=== PATIENT | male | born 1950 | race Caucasian/White ===

== ENCOUNTER 2017-10-03 16:08 | Inpatient (IN) | payer MEDICARE ==
[2017-10-03] MEDS ORDERED: Nitroglycerin TAB 0.4 MG* 0.4 MG TAB ONE (16:28)
[2017-10-03] MEDS ORDERED: Morphine VIAL* 4 MG/ML VIAL (1 ml vial) IV ONE ×2 (16:28→16:36)
[2017-10-03] MEDS ORDERED: Ondansetron INJ* 2 MG/ML VIAL ONE (16:29)
[2017-10-03] MEDS: Nitroglycerin TAB 0.4 MG* 0.4 MG TAB SL SCH ×2 (16:32→20:45)
[2017-10-03] MEDS ORDERED: Ondansetron INJ* 2 MG/ML VIAL IV ONE (16:36)
[2017-10-03] MEDS: NS 0.9% 1000 ML*IV.FLUID IV ONE ×2 (16:40→18:36)
[2017-10-03 16:47] LABS: ABS Basophils 0 10^3/ul (0-0.2); ABS Eosinophils 0.2 10^3/ul (0-0.6); ABS Lymphocytes 1.1 10^3/ul (1.0-4.8); ABS Monocytes 0.3 10^3/ul (0-0.8); ABS Neutrophils 5.4 10^3/ul (1.5-7.7); ABS Nucleated RBC 0 10^3/ul; Eosinophil % 2.8 % (0-6); Hematocrit 42 % (42-52); Hemoglobin 14.6 g/dl (14.0-18.0); Lymphocyte % 15.3 % (25-47); Mean Corpuscular HGB Conc 35 g/dl (31-36); Mean Corpuscular Hemoglobin 33 pg (27-31); Mean Corpuscular Volume 93 fL (80-94); Mean Platelet Volume 7.3 um3 (7.4-10.4); Nucleated Red Blood Cells % 0.1; Platelet Count 184 10^3/ul (150-450); Red Blood Count 4.48 10^6/ul (4.0-5.4); Red Cell Distribution Width 13 % (10.5-15); White Blood Count 7.1 10^3/ul (3.5-10.8)
[2017-10-03 16:55] LABS: INR 0.87 (0.77-1.02)
[2017-10-03 17:05] LABS: EGFR Non-African American 72.4 (>60)
[2017-10-03] MEDS ORDERED: Iohexol 350* (CONTRAST) 500 ML MDV IV ONE (17:46)
--- NOTE | 2017-10-03 17:46 | RAD ---
Indication: Chest pain. Single frontal view of the chest performed at 1725 hours was reviewed. Comparison is made with previous exam dated April 11, 2015. No mediastinal shift is noted. Heart is of normal size and configuration. Lung wisdom appear clear. IMPRESSION: NO ACTIVE CARDIOPULMONARY DISEASE IS NOTED.
[2017-10-03 18:30] LABS: Urine Appearance Clear; Urine Blood 2+ (Negative); Urine Color Colorless; Urine Ketones Negative (Negative); Urine Protein Negative (Negative); Urine Specific Gravity 1.003 (1.010-1.030); Urine Urobilinogen Negative (Negative)
--- NOTE | 2017-10-03 18:56 | RAD ---
Indication: Back pain. Contrast: Administered 100.2 ml of OMNIPAQUE 350 mg/ml CTA of the chest, abdomen and pelvis was performed after IV contrast administration. Coronal and sagittal 3-D reconstructed images were obtained. The thoracic aorta demonstrates atherosclerosis but no evidence of aneurysmal dilatation or aortic dissection is noted. The origins of the great vessels are grossly unremarkable. There are small 3 to 5 mm AP window lymph nodes and pretracheal lymph nodes noted. No hilar adenopathy is noted. No filling defects are noted in the pulmonary arteries to suggest pulmonary embolus. The lung wisdom demonstrate no definite pleural fluid or nodules. The axilla demonstrates no evidence of abnormal adenopathy. The abdominal aorta demonstrates no residual dilatation. Atherosclerosis of the left and right renal arteries are noted. Superior mesenteric artery and celiac axis are unremarkable. The common iliac arteries are tortuous pelvis no focal dissection is noted. No pleural fluid is identified. CT of the abdomen and pelvis demonstrates liver to be normal in size. No focal lesions or intrahepatic ductal dilatation is noted. The gallbladder demonstrates no calcified gallstones. No pericholecystic fluid or wall thickening is noted. The spleen is normal in size. No adrenal lesions are noted. The kidneys demonstrate no hydronephrosis. CT of the pelvis demonstrates distended urinary bladder. Prostate is enlarged. No hernias are noted. IMPRESSION: No evidence of thoracic aortic dissection or aneurysmal dilatation is noted. No dilated loops of bowel are noted. The remainder of the abdominal aorta demonstrates no evidence of aneurysmal dilatation. The urinary bladder is distended. The prostate is enlarged. No hernias are noted. Small mediastinal lymph nodes are noted.
[2017-10-03] MEDS ORDERED: Acetaminophen TAB* 325 MG PO PRN (19:18)
[2017-10-03] MEDS: Omeprazole CAP* 20 MG PO SCH (20:45)
[2017-10-03] MEDS: Heparin VIAL(*) 5000 UNITS/ML VIAL (FIVE THOUSAND) SUBCUT SCH (20:47)
--- NOTE | 2017-10-03 21:46 | HP ---
CC: Dr. Frank; Dr. Lyly Bullard* HISTORY AND PHYSICAL: DATE OF ADMISSION: 10/03/17 PRIMARY CARE PROVIDER: Dr. Frank. PROJECT MANAGEMENT IT SPECIALIST: Dr. Lyly Bullard. ATTENDING PHYSICIAN: Dr. Sarina Cruz* (dictated by Jenny Atkins NP). CHIEF COMPLAINT: Chest pain, indigestion, intermittent shortness of breath, left lower extremity pain and low back pain. HISTORY OF PRESENT ILLNESS: Mr. Yates is a 67-year-old male with past medical history significant for coronary artery disease, status post cardiac catheterization and 2 stents placed in 2012, hypertension, BPH, allergic rhinitis, hyperlipidemia, GERD and gout, who presented to the emergency room with complaints of intermittent chest pain that developed on Wednesday after he "forcefully removed a tire." The patient states that since Wednesday which was 2 days ago that he has intermittently been having an aching discomfort in his mid sternal chest region. He also reports the feeling of indigestion with discomfort radiating up into his neck and down into his abdomen. Additionally, he has had intermittent shortness of breath. He also reports having cramping down his left leg that is radiating up into low back pain since Wednesday. The patient states that in 2012 when he had his prior event, at that time he felt fine with the exception of feeling fatigued while carrying a laundry basket going upstairs. He states this does not feel similar to that time. He took 325 mg of aspirin at home when he noticed that the pain was increased while walking around at work, he decided to present to the emergency room for further evaluation. While in the emergency room, the patient had labs remarkable for a CK of 1716 and troponin of 0.07. He had an EKG showing a normal sinus rhythm at a rate of 60 similar to previous EKG with no acute signs of ischemia. The patient had a chest x- ray showing no acute findings. Additionally, he had a CT of his chest showing no signs of dissection. Due to the patient's history of elevated troponin, the hospitalists were asked to evaluate the patient for admission. PAST MEDICAL HISTORY: 1. Coronary artery disease. 2. Hypertension. 3. BPH. 4. Allergic rhinitis. 5. Hyperlipidemia. 6. GERD. 7. Gout. 8. Possible history of anemia secondary to GI bleed, per medical record, but the patient is currently denying this history. PAST SURGICAL HISTORY: 1. Status post left inguinal hernia repair. 2. Status post cardiac catheterization with 2 stents placed. 3. Status post cystoscopy. 4. Status post nasal septoplasty. 5. Status post bilateral cataract extractions. MEDICATIONS: Include: 1. Fluconazole topical twice daily. 2. Flonase 50 mcg 2 sprays to both nares daily. 3. Metoprolol 50 mg oral daily. 4. Allopurinol 300 mg oral daily. 5. Amlodipine 2.5 mg oral daily. 6. Flomax 0.4 mg oral daily. ALLERGIES: ENVIRONMENTAL. FAMILY HISTORY: The patient denies any family history of coronary artery disease, diabetes mellitus. The patient's mother had a history of uterine cancer. SOCIAL HISTORY: The patient denies tobacco or alcohol use. He reports daily marijuana use. His sons Feroz and Zak will be his surrogate decision makers in the event he is unable to make decisions for herself. REVIEW OF SYSTEMS: I performed an 11-point review of systems. All the pertinent positives and negatives are mentioned in the history of present illness. Remaining review of systems are negative. PHYSICAL EXAMINATION GENERAL APPEARANCE: The patient is alert, pleasant and appears to be in no acute distress. VITAL SIGNS: Temperature 97.7, heart rate 59, respiratory rate 17, O2 sat 96% on room air, blood pressure 126/74. HEENT: Normocephalic, atraumatic. Pupils are equal and reactive to light. Extraocular movements are intact. NECK: Supple. There is no lymphadenopathy noted. RESPIRATORY: There is no accessory muscle use. The lungs are clear to auscultation bilaterally. CARDIOVASCULAR: Regular rate and rhythm. S1, S2 present. There are no murmurs , rubs, or gallops. I am unable to reproduce the pain with palpation. ABDOMEN: Soft, nontender, and nondistended. Bowel sounds present x4. EXTREMITIES: There is no lower extremity edema. DP and PT pulses are 2+ and symmetric. MUSCULOSKELETAL: There is no clubbing or cyanosis noted. The patient exhibits good strength in all extremities. NEUROLOGICAL: The patient is alert and oriented x4. Cranial nerves II through XII are grossly intact. PSYCHOLOGICAL: The patient is calm and cooperative. SKIN: There are no rashes or abnormalities seen. DIAGNOSTIC STUDIES/LAB DATA: Sodium 135, potassium 3.9, chloride 100, CO2 24, BUN 17, creatinine 1.02, platelet 141. White blood cell count 7.1, hemoglobin 14.6, hematocrit 42, and platelet count 184. INR 0.89. D-dimer less than 200, CK 1716, troponin 0.07. EKG shows a normal sinus rhythm with a rate of 60. There are no acute signs of ischemia. This EKG is similar to previous EKG from 08/27/15. Chest x-ray from today. Radiologist's impression: No active cardiopulmonary disease. Chest, abdomen and pelvis CTA from today. Radiologist's impression: No evidence for thoracic aortic dissection or aneurysmal dilation is noted. No dilated loops of bowel were noted. The remainder of the abdomen aortic demonstrates no evidence of aneurysmal dilation. The urinary bladder is distended. The prostate is enlarged. No hernias are noted. Small mediastinal lymph nodes are noted. IMPRESSION: Mr. Yates is a 67-year-old male with past medical history significant for coronary artery disease status post cardiac stenting, hypertension, benign prostatic hypertrophy, hyperlipidemia, gastroesophageal reflux disease and gout, who presented to the emergency room with 2 days of intermittent chest pain with associated intermittent shortness of breath. He will be admitted in observation for chest pain rule out acute coronary syndrome. ASSESSMENT AND PLAN: 1. Chest pain. The patient will be admitted to rule out acute coronary syndrome. He has a SVETLANA score of 2. His initial troponin is 0.07. He is pending to follow up troponins. He currently has no acute signs of ischemia on his EKG. I will repeat an EKG in the morning. We are going to tentatively plan to do an exercise nuclear med stress test in the morning if he rules out for acute coronary syndrome overnight. I am going to continue him on a baby aspirin daily and continue his statin, but recheck fasting lipids in the morning and adjust his statin accordingly. 2. Mild rhabdomyolysis. We will give the patient IV fluids, recheck his CK in the morning. 3. History of coronary artery disease. Continue the patient's metoprolol. He is not currently on aspirin. He is not currently on a statin. We will check fasting lipids. 4. Hypertension. The patient is mostly normotensive in the emergency room. We will continue him on his amlodipine and metoprolol. 5. History of hyperlipidemia. We will check fasting lipids in the morning. He is not currently on a statin. 6. History of gout. He will be continued on his home allopurinol. 7. Gastroesophageal reflux disease. The patient is not currently taking medications at home. We will trial him on omeprazole while he is in the hospital. 8. Benign prostatic hypertrophy. The patient will be continued on his tamsulosin. 9. Fluids, electrolytes, and nutrition. The patient will be on a heart healthy diet, n.p.o. except for meds after midnight for a stress testing in the morning. 9. Code status. Full code. 10. DVT prophylaxis. The patient is at moderate risk and will have subcu heparin. 11. Disposition. Observation. TIME SPENT: Time for this admission was approximately 60 minutes, greater than half of that was spent with the patient discussing medications, past medical history, the events leading up to his arrival today, performing an examination. The case has been reviewed with the attending, Dr. Cruz, who agrees with the plan of care. JENNY ATKINS, LINDSAY [id number]/[facility] #: [id number] YOSSI
[2017-10-03] MEDS ORDERED: Al Hydrox/Mg Hydrox/Simet LIQ* 30 ML UDC PO PRN (22:04)
--- NOTE | 2017-10-03 22:33 | ED ---
Sandoval Eldridge Stephanie, scribed for Shahla Bruce MD on 10/03/17 at 1628 . HPI Chest Pain - HPI Summary HPI Summary: The pt is a 67 y/o M presenting to the ED with c/o chest pain that began on 10/02 at night. Symptoms include SOB, nausea, L LE pain and lower back pain. He denies V/D, abd pain and diaphoresis. The CP is intermittent and worse with exertion. Pt took 325 mg aspirin at home. The pain is described as an aching pain and radiates into his L shoulder. The pt states his CP feels like it moves around. It feels like indigestion. His pain is rated as a 6 in severity. S/p nitro, the pt states his pain is an uncomfortable feeling. Pt drove himself to the ED. Pt has hx CAD with [address] 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 - History of Current Complaint Chief Complaint: EDChestPainROMI Time Seen by Provider: 10/03/17 16:14 Hx Obtained From: Patient Onset/Duration: Started Hours Ago, Still Present Timing: Intermittent Initial Severity: Moderate Current Severity: Moderate Pain Intensity: 6 Pain Scale Used: 0-10 Numeric Chest Pain Location: Left Anterior Chest Pain Radiates: Yes Chest Pain Radiates To:: Shoulder - L Character: Dull/Aching, Other: - SOB Aggravating Factor(s): Exertion Alleviating Factor(s): Nothing Associated Signs and Symptoms: Positive: Chest Pain, Shortness of Breath, Nausea. Negative: Diaphoresis, Vomiting - Allergy/Home Medications Allergies/Adverse Reactions: Allergies Allergy/AdvReac Type Severity Reaction Status Date / Time No Known Drug Allergies Allergy See Comment Verified 10/04/17 12:21 ENVIRONMENTAL/SEASONAL Allergy ITCHY Uncoded 10/03/17 16:11 ALLERGIES WATERY EYES, CONGESTION Home Medications: Home Medications Allopurinol TAB* [Zyloprim 300 MG TAB*] 300 mg PO DAILY 10/03/17 [History Confirmed 10/03/17] Fluconazole Cream 1 applic TOPICAL BID 10/03/17 [History Confirmed 10/03/17] Fluticasone NASAL SPRAY 50MCG* [Flonase NASAL SPRAY 50MCG*] 2 spray BOTH NARES DAILY 10/03/17 [History Confirmed 10/03/17] Metoprolol Tartrate TAB* [Lopressor TAB*] 50 mg PO DAILY 10/03/17 [History Confirmed 10/03/17] Tamsulosin CAP* [Flomax CAP*] 0.4 mg PO DAILY 10/03/17 [History Confirmed ] amLODIPine TAB* [Norvasc 5 mg TAB*] 2.5 mg PO DAILY 10/03/17 [History Confirmed 10/03/17] Aspirin EC TAB* [Ecotrin EC Low Dose 81 MG*] 81 mg PO DAILY 10/04/17 [History Confirmed 10/04/17] PMH/Surg Hx/FS Hx/Imm Hx Endocrine/Hematology History: Reports: Hx Anemia Cardiovascular History: Reports: Hx Angioplasty, Hx Coronary Artery Disease - CARDIAC CATHERIZATION WITH 2 STENT INSERTION 2012, Hx Hypertension, 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 Respiratory History: Reports: Other Respiratory Problems/Disorders - DEVIATED SEPTUM, CONGESTED GI History: Denies: Other GI Disorders Comment Only: Hx Gastroesophageal Reflux Disease - DENIES BUT TAKING DAILY OMEPRAZOLE History: Reports: Hx Benign Prostatic Hyperplasia, Hx Kidney Stones Musculoskeletal History: Reports: Hx Arthritis - OSMANI HANDS Denies: Other Musculoskeletal History Sensory History: Reports: Hx Cataracts - BILATERAL, Hx Contacts or Glasses - GLASSES Denies: Hx Hearing Aid Opthamlomology History: Reports: Hx Cataracts - BILATERAL, Hx Contacts or Glasses - GLASSES Neurological History: Reports: Hx Headaches - OCCASIONAL, Other Neuro Impairments/Disorders - OCCASIONAL DIZZINESS WHEN BENDING - Surgical History Surgery Procedure, Year, and Place: 05/2013 CARDIAC CATHERIZATION WITH 2 [place] [facility] [place] RIGHT URETEROSCOPY, LASER LITHOTRIPSY, RIGHT URETERAL [place] [facility] [place]/06/2014 COLONOSCOPY, [facility] Anesthesia Reactions: No Infectious Disease History: No Infectious Disease History: Denies: Traveled Outside the [place] in Last 30 Days - Family History Known Family History: Negative: Cardiac Disease, Renal Disease - Social History Occupation: Employed Full-time Lives: Alone Alcohol Use: None Hx Substance Use: Yes Substance Use Type: Reports: Marijuana Substance Use Comment - Amount & Last Used: EVERYDAY Hx Tobacco Use: No Smoking Status (MU): Never Smoked Tobacco Have You Smoked in the Last Year: No Review of Systems Negative: Fever Positive: Chest Pain Positive: Shortness Of Breath Positive: Nausea. Negative: Abdominal Pain, Vomiting, Diarrhea Positive: Other - L LE pain, lower back pain Neurological: Negative Psychological: Normal All Other Systems Reviewed And Are Negative: Yes Physical Exam - Summary Physical Exam Summary: Appearance: Ill-appearing, moderate/severe pain distress, Well-nourished Skin: Warm, color reflects adequate perfusion Head: Normal Head/Face inspection Eyes: Conjunctiva clear ENT: Normal inspection Neck: Supple, no nodes, no JVD. Respiratory: Lungs clear, breath sounds diminished, no respiratory distress Cardio: RRR, No murmur, pulses normal, brisk capillary refill Abdomen: soft, nontender, no masses Bowel sounds: present Musculoskeletal: Strength Intact/ ROM intact. Tenderness to L lateral LE, no spinal tenderness, tender at sciatic notch. No edema. Psychological: Normal Neuro: Alert, muscle tone normal, no focal deficit Triage Information Reviewed: Yes Vital Signs On Initial Exam: Initial Vitals Temp Pulse Resp BP Pulse Ox 97.7 F 63 16 136/74 94 10/03/17 16:11 10/03/17 16:11 10/03/17 16:11 10/03/17 16:11 10/03/17 16:11 Vital Signs Reviewed: Yes Diagnostics - Vital Signs Vital Signs Temp Pulse Resp BP Pulse Ox 10/03/17 16:11 97.7 F 63 16 136/74 94 - Laboratory Result Diagrams: 10/03/17 16:35 10/04/17 06:32 Lab Statement: Any lab studies that have been ordered have been reviewed, and results considered in the medical decision making process. - Radiology CXR Xray Interpretation: No Acute Changes Radiology Interpretation Completed By: Radiologist - NO ACTIVE CARDIOPULMONARY DISEASE NOTED. ED physician has reviewed this report. - EKG 16:20 Cardiac Rate: NL EKG Rhythm: Sinus Rhythm - [address] Segment: Non-Specific Ectopy: None - nml AVIVCT, nml QTc, and L axis -18 Re-Evaluation - Re-Evaluation First Eval Re-Evaluation Time: 16:55 Change: Worse - The pt states he has worsening R CP, He is uncomfortable on stretcher, 10/10 in severity. Pain in R chest and he points to his R chest and abd and states his pain runs through his back. Second Eval Re-Evaluation Time: 17:33 Change: Improved - The pt's pain is better but he still has pain in his chest and abd. Chest Pain Course/Dx - Course Course Of Treatment: Due to the pts hx of vascular disease, stents, CP and abd pain, ED physician will do CTA of aorta to make sure there is no aortic dissection. Based on elevated total creatine kinase, the pt has rhabdomyolysis. At 17:33, ED physician is aware of the pt's troponin. At 17:44, Dr. Cisneros accepted the pt for admission. - Chest Pain Differential Diagnosis/HQI/PQRI: Acute [place], ACS, Angina, Aortic Aneurysm, Pulmonary Embolism, Other: - aortic dissection - Diagnoses Provider Diagnoses: Chest pain, Non-STEMI (non-ST elevated myocardial infarction), Rhabdomyolysis, History of coronary artery disease - Provider Notifications Discussed Care Of Patient With: Talib Cisneros Time Discussed With Above Provider: 17:44 Instructed by Provider To: Admit As Inpatient - Critical Care Time Critical Care Time: 30-74 min - 45 mins Discharge - Sign-Out/Discharge Documenting (check all that apply): Discharge/Admit/Transfer - admit - Discharge Plan Condition: Stable Disposition: ADMITTED TO [facility] - Billing Disposition and Condition Condition: STABLE [place] [place] The documentation as recorded by the Sandoval bland Stephanie accurately reflects the service I personally performed and the decisions made by , Shahla Bruce MD.
[2017-10-03] MEDS: NS 0.9% 1000 ML* 1,000 ML IV SCH (22:59)
[2017-10-04] MEDS: Heparin VIAL(*) 5000 UNITS/ML VIAL (FIVE THOUSAND) SUBCUT SCH ×3 (06:14→21:14)
[2017-10-04] MEDS: Omeprazole CAP* 20 MG PO SCH (06:14)
[2017-10-04 07:03] LABS: EGFR Non-African American 83.7 (>60)
--- NOTE | 2017-10-04 08:32 | PN ---
Subjective Date of Service: 10/04/17 Interval History: Patient seen and examined at bedside. Denies fever, chills, shortness of breath , chest discomfort, N/V/D. Pt states that the feeling of indigestion resolved after receiving a "GI cocktail" overnight. He reports that he intermittently had sternal chest pressure overnight, that has since resolved. Discussed with Dr. Amor elevated troponin and chest pain overnight, He is ok with proceeding with stress testing today. Tele: Sinus rhythm, rate 60's. Family History: Unchanged from Admission Social History: Unchanged from Admission Past Medical History: Unchanged from Admission Objective Active Medications: Acetaminophen (Tylenol Tab*) 650 mg PO Q4H PRN Reason: FEVER/PAIN Al Hydrox/Mg Hydrox/Simethicone (Maalox Plus*) 30 ml PO ONCE PRN Reason: INDIGESTION Allopurinol (Zyloprim Tab*) 300 mg PO DAILY [facility] Amlodipine Besylate (Norvasc Tab*) 2.5 mg PO DAILY [facility] Aspirin (Aspirin Ec Tab*) 81 mg PO DAILY [facility] Fluticasone Propionate (Flonase Nasal Harman 50mcg*) 2 spray BOTH NARES DAILY [facility] Heparin Sodium (Porcine) (Heparin Vial(*)) 5,000 units SUBCUT Q8HR [facility] Sodium Chloride (Ns 0.9% 1000 Ml*) 1,000 mls @ 100 mls/hr IV PER RATE [facility] Metoprolol Tartrate (Lopressor Tab*) 50 mg PO DAILY [facility] Nitroglycerin (Nitroglycerin Tab 0.4 Mg*) 0.4 mg SL .EVERY 5 MIN PRN [facility] Omeprazole (Prilosec Cap*) 20 mg PO 0600 [facility] Tamsulosin HCl (Flomax Cap*) 0.4 mg PO DAILY [facility] Vital Signs - 8 hr 10/04/17 10/04/17 03:43 07:29 Temperature 97.8 F 98.1 F Pulse Rate 56 56 Respiratory 20 18 Rate Blood Pressure 117/68 124/76 (mmHg) O2 Sat by Pulse 93 94 Oximetry Oxygen Devices in Use Now: None Appearance: NAD, laying in bed Ears/Nose/Mouth/Throat: Mucous Membranes Moist Respiratory: Symmetrical Chest Expansion and Respiratory Effort, Clear to Auscultation Cardiovascular: NL Sounds; No Murmurs; No JVD, RRR Abdominal: NL Sounds; No Tenderness; No Distention Extremities: No Edema Skin: No Rash or Ulcers Neurological: Alert and Oriented x 3, NL Muscle Strength and Tone Lines/Tubes/Other Access: Clean, Dry and Intact Peripheral IV - site benign Nutrition: Taking PO's Result Diagrams: 10/03/17 16:35 10/04/17 06:32 Assess/Plan/Problems-Billing Assessment: Mr. Yates is a 67 yo male with PMH significant for CAD s/p cardiac stent x2, HTN , BPH, HLD, GERD and GOUT who presented to the emergency room with complaints of intermittent chest pain for - Patient Problems (1) Chest pain Code(s): R07.9 - CHEST PAIN, UNSPECIFIED SNOMED Code(s): 30927379 Comment: - Reports intermittent chest discomfort overnight, this has now resolved - Troponins 0.07, 0.10, 0.13, 0.21 - Continue to trend troponin until peak - Cardiology consult, pending - Nuclear stress test pending (2) Rhabdomyolysis Code(s): M62.82 - RHABDOMYOLYSIS SNOMED Code(s): 317673807 Comment: - Mild, Pt has chronically elevated CK - CK 1716 down to 1701 this AM - Continue IVFs (3) GERD (gastroesophageal reflux disease) Code(s): K21.9 - GASTRO-ESOPHAGEAL REFLUX DISEASE WITHOUT ESOPHAGITIS SNOMED Code(s): 696790969 Comment: - Continue omeprazole (4) History of coronary artery disease Code(s): Z86.79 - PERSONAL HISTORY OF OTHER DISEASES OF THE CIRCULATORY SYSTEM SNOMED Code(s): 574213337 Comment: - S/P 2 cardiac stents ~ 2012 - Continue ASA and metoprolol (5) HTN (hypertension) Code(s): I10 - ESSENTIAL (PRIMARY) HYPERTENSION SNOMED Code(s): 79522839 Comment: - SBP 100-150's - Continue amlodipine and metoprolol (6) HLD (hyperlipidemia) Code(s): E78.5 - HYPERLIPIDEMIA, UNSPECIFIED SNOMED Code(s): 97341268 Comment: - No longer on a statin due to elevated CKs - Will defer to cardiology (7) Gout Code(s): M10.9 - GOUT, UNSPECIFIED SNOMED Code(s): 99117539 Comment: - Continue allopurinol (8) BPH (benign prostatic hyperplasia) Code(s): N40.0 - BENIGN PROSTATIC HYPERPLASIA WITHOUT LOWER URINRY TRACT SYMP SNOMED Code(s): 228498277 Comment: - Continue tamsulosin (9) DVT prophylaxis Code(s): [id number] - SNOMED Code(s): 650682828 Comment: - SQ heparin (10) Full code status Code(s): Z78.9 - OTHER SPECIFIED HEALTH STATUS SNOMED Code(s): 520904065 Status and Disposition: OBV. Discharge to home when medically stable. Attending: Susi Lay
[2017-10-04] MEDS: Fluticasone NASAL SPRAY 50MCG* 16 gm SPRAY BTL BOTH NARES SCH (08:34)
[2017-10-04] MEDS: Allopurinol TAB* 300 MG PO SCH (08:35)
[2017-10-04] MEDS: Tamsulosin CAP* 0.4 MG PO SCH (08:35)
[2017-10-04] MEDS: Aspirin EC TAB* 81 MG TAB.EC PO SCH (08:35)
[2017-10-04] MEDS: amLODIPine TAB* 5 MG PO SCH (08:35)
[2017-10-04] MEDS ORDERED: Metoprolol Tartrate TAB* 50 mg PO SCH (09:00)
[2017-10-04] MEDS: NS 0.9% 1000 ML* 1,000 ML IV SCH (09:10)
[2017-10-04] MEDS ORDERED: diPHENhydraMINE PO* 25 MG PO ONE (12:07)
[2017-10-04] MEDS ORDERED: Diazepam TAB(*) 5 MG PO ONE (12:07)
[2017-10-04] MEDS ORDERED: Diazepam TAB(*) 5 MG ONE (12:18)
--- NOTE | 2017-10-04 13:06 | RAD ---
INDICATION: Chest pain. COMPARISON: There are no prior studies available for comparison. Technique: A single day myocardial perfusion stress study was performed. Initially the resting study was performed. The patient was given an intravenous injection of 10.1 mCi of technetium 99m tetrofosmin and and the heart was imaged in multiple projections. The stress portion of the exam was canceled. Images were reconstructed in the axial, sagittal and coronal planes and in a 3-D format. FINDINGS: There is a moderate size defect present in the inferolateral which resolves on the attenuation corrected images and therefore most consistent with an attenuation artifact. IMPRESSION: LIMITED REST STUDY ONLY. NO EVIDENCE FOR INFARCT.
--- NOTE | 2017-10-04 13:25 | CONS ---
CC: Dr. Bullard CARDIOLOGY CONSULTATION: DATE OF CONSULT: 10/04/17 INDICATION FOR CONSULTATION: Coronary artery disease, unstable angina. HISTORY OF PRESENT ILLNESS: The patient is a 67-year-old male with a history of coronary artery dise ase, history of 2 stents to his right coronary artery in 2012, who had been experiencing crescendo an boom. The patient states that he was working yesterday and had epigastric discomfort radiating up in to his chest. 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 He decided to come to the emergency room. On arrival to the emerg ency room, his troponins were minimally elevated at 0.07. His peak troponin was 0.21. His initial E KG demonstrated normal sinus rhythm with normal axis and intervals. No ischemic EKG changes. The patient underwent an exercise stress test with me today. The patient had no pain when he started the exercise, 3 minutes into exercise, he started having severe epigastric discomfort radiating up i nto his chest, by 4.5 minutes it was a crushing chest pain and he had to stop. The patient did have [address] segment depression at peak exercise that resolved 3 minutes into recovery period. Because of his history of coronary artery disease and his markedly abnormal stress test, it is recomm ended that the patient undergo cardiac catheterization. PAST MEDICAL HISTORY: Significant for: 1. Coronary artery disease. 2. Hypertension. 3. Allergic rhinitis. 4. Gastroesophageal reflux disease. 5. Gout. PAST SURGICAL HISTORY: 1. Inguinal hernia repair. 2. Cystoscopy. 3. Nasal septoplasty. 4. Cataract surgery. OUTPATIENT MEDICATIONS: 1. Flonase nasal spray. 2. Metoprolol 50 mg daily. 3. Allopurinol 300 mg a day. 4. Amlodipine 2.5 mg a day. 5. Flomax 0.4 mg a day. The patient apparently was not taking an aspirin or statin therapy. ALLERGIES: No known drug allergies. PHYSICAL EXAM: Height is 5 feet 6 inches, weight is 159 pounds. Temperature 98.1, heart rate is 60, blood pressure 124/78, respiratory rate is 18, oxygen saturation 94% on room air. Sclerae anicteric . Oropharynx is pink without erythema. Carotids are 2+ without bruits. JVD is normal. Thyroid is n ormal. Cardiac Exam: S1 and S2 without any murmurs, rubs, or gallops. Lungs: Clear to auscultation bilaterally. There is no dullness to percussion. Abdomen: Soft, nontender, and nondistended with normoactive bowel sounds. Extremities: Show no edema. He has 2+ pulses throughout. Neurologic: T he patient is awake, alert, and oriented. He moves all 4 extremities equally. DIAGNOSTIC STUDIES/LABORATORY DATA: Cardiac catheterization in 2013 showed normal LV size with systo lic function. His left main was normal. His LAD was normal. His second diagonal vessel had a bifurc ating 90% lesion with a small vessel at that point. His right coronary artery had distal 90% stenosi s. The patient had 2 stents. There is a 2.5 mm x 16 mm Promus PREMIER stent and then a 2.5 mm x 24 mm Promus PREMIER stent. These are overlapping stents in the distal right coronary artery. laboratory studies: Chemistries within normal limits. BUN 13, creatinine 0.9. Total CK is elevated at 1700. MB fraction is 1.7. Total cholesterol 209, HDL of 33, LDL 142. IMPRESSION: This is a gentleman with a history of coronary artery disease who was admitted to the [facility] with crescendo angina. He has a markedly positive stress test. The patient will undergo cardiac catheterization to reevaluate his coronary arteries. The risks and benefits of this were discussed with the patient and he is willing to proceed. [id number]/[facility] #: [id number]
[2017-10-04] MEDS: Metoprolol Tartrate TAB* 50 mg PO SCH (13:41)
[2017-10-04] MEDS ORDERED: Iohexol 350 (CONTRAST) 200 ML MDV IV ONE ×2 (14:04→15:47)
[2017-10-04] MEDS ORDERED: Lidocaine 1% INJ* 10 MG/ML 30 ML SDV ONE ×2 (14:04→14:16)
[2017-10-04] MEDS ORDERED: Heparin 2 UNITS/ML IVPREMIX* 2,000 ML IV ONE ×2 (14:04→14:16)
[2017-10-04] MEDS ORDERED: Heparin(*) 1000 UNIT/ML 10 ML VIAL CATH LAB IV ONE (14:15)
[2017-10-04] MEDS ORDERED: fentaNYL* 50 MCG/ML 5 ML VIAL (250 MCG VIAL) ONE (14:15)
[2017-10-04] MEDS ORDERED: Midazolam* 1 MG/ML 10 ML VIAL (10 MG) ONE (14:15)
[2017-10-04] MEDS ORDERED: VERAPAMIL 2.5 MG/ML 2 ML VIAL ** 5 mg/2 ml ONE (14:15)
[2017-10-04] MEDS ORDERED: nitroGLYCERIN DRIP* 25,000 MCG/250 ML BTL ONE (14:16)
[2017-10-04] MEDS ORDERED: Ticagrelor* 90 MG TAB PO ONE (15:32)
[2017-10-04] MEDS ORDERED: Bivalirudin(*) 250 MG VIAL ONE (15:37)
[2017-10-04] MEDS ORDERED: Nitroglycerin TAB 0.4 MG* 0.4 MG TAB SL PRN (16:16)
[2017-10-04] MEDS ORDERED: NS 0.9% 1000 ML* 1,000 ML IV SCH (16:30)
[2017-10-04] MEDS: Ticagrelor* 90 MG TAB PO SCH (21:14)
[2017-10-05] MEDS: Omeprazole CAP* 20 MG PO SCH (06:21)
[2017-10-05] MEDS: Heparin VIAL(*) 5000 UNITS/ML VIAL (FIVE THOUSAND) SUBCUT SCH (06:21)
[2017-10-05 06:43] LABS: ABS Basophils 0 10^3/ul (0-0.2); ABS Eosinophils 0.3 10^3/ul (0-0.6); ABS Monocytes 0.6 10^3/ul (0-0.8); ABS Neutrophils 5.3 10^3/ul (1.5-7.7); ABS Nucleated RBC 0 10^3/ul; Eosinophil % 3.6 % (0-6); Hematocrit 41 % (42-52); Hemoglobin 14.5 g/dl (14.0-18.0); Lymphocyte % 13.6 % (25-47); Mean Corpuscular HGB Conc 35 g/dl (31-36); Mean Corpuscular Hemoglobin 32 pg (27-31); Mean Corpuscular Volume 92 fL (80-94); Mean Platelet Volume 7.2 um3 (7.4-10.4); Nucleated Red Blood Cells % 0; Platelet Count 172 10^3/ul (150-450); Red Blood Count 4.48 10^6/ul (4.0-5.4); Red Cell Distribution Width 13 % (10.5-15)
[2017-10-05] MEDS: Metoprolol Tartrate TAB* 50 mg PO SCH (07:41)
[2017-10-05] MEDS: amLODIPine TAB* 5 MG PO SCH (07:41)
[2017-10-05] MEDS: Tamsulosin CAP* 0.4 MG PO SCH (07:41)
[2017-10-05] MEDS: Ticagrelor* 90 MG TAB PO SCH (07:41)
[2017-10-05] MEDS: Aspirin EC TAB* 81 MG TAB.EC PO SCH (07:41)
--- NOTE | 2017-10-05 08:14 | CATH ---
CC: Dr. Lyly Bullard; Dr. Ildefonso Frank* CARDIAC CATHETERIZATION AND INTERVENTIONAL REPORT: DATE OF PROCEDURE: 10/04/17 INDICATION FOR THE PROCEDURE: Asked by Dr. Amor, who had performed the diagnostic cardiac catheterization to perform intervention into distal right coronary artery critical 95% stenosis. PROCEDURE: The procedure was balloon angioplasty and placement of a 2.5 x 16 mm long Synergy drug-eluting stent dilated to high pressure (18 atmospheres) to achieve 2.7 mm. The patient already had undergone the diagnostic cardiac catheterization by Dr. Amor initially trying from the right radial artery and an eventually switching to the right femoral artery. EQUIPMENT UTILIZED: 1. Existing right femoral artery sheath was a 6-Swazi 23 cm long sheath. 2. Guiding catheter a 6-Swazi ART4 curved with side holes. 3. Guidewires utilized throughout the case included All Star exchange length wire in addition to BMW regular length wire. 4. Predilatation balloon 2.0 x 12 mm long NC Emerge. 5. Stent placement with a 2.5 x 16 mm long Synergy drug-eluting stent. 5. Exchange sheath to utilize closure device - with a 6-Swazi 11-cm long sheath. 6. Closure device with a 6/7 Swazi Mynx vascular closure device. MEDICATIONS GIVEN: Prior to intervention included 180 mg orally, Angiomax bolus and Angiomax drip was started after ECT was found to be subtherapeutic, intracoronary nitroglycerin was given as well. RESULTS: Successful intervention into critical distal right coronary 95% lesion with residual stenosis of 0%, SVETLANA-3 flow noted. OVERALL ASSESSMENT: Successful intervention with reducing 95% lesion to 0% with drug eluting stent placement as described above. The patient should be maintained on dual antiplatelet therapy for a minimum of a 1-year time. Consideration toward 30 months would be appropriate as well. Of note, the patient apparently cannot tolerate statin therapy. I would strongly urge the patient be placed on subcutaneous anticholesterol injectable medications (PCSK9 inhibitors) in light of his multiple stent placements in the past. The patient will be following up with Dr. Bullard for ongoing cardiac care and Dr. Frank for risk factor management. [id number]/[facility] #: [id number] [facility]ENTERShirley
[2017-10-05] MEDS: Allopurinol TAB* 300 MG PO SCH (09:31)
[2017-10-05] MEDS: Fluticasone NASAL SPRAY 50MCG* 16 gm SPRAY BTL BOTH NARES SCH (09:31)
--- NOTE | 2017-10-05 10:26 | CATH ---
CC: Dr. Bullard; Dr. Armendariz* CARDIAC CATHETERIZATION REPORT: DATE OF PROCEDURE: 10/04/17 INDICATION FOR PROCEDURE: Unstable angina. The patient is a 67-year-old male with a history of coronary artery disease, history of 2 stents to his right coronary artery in 2012. The patient has been crescendo angina. Yesterday, he had severe chest pain. He was brought to the hospital. The patient underwent a stress test on the morning of the procedure. The stress test, he exercised for 4 minutes. He had crushing chest pain with 2- mm of ST-segment depression. Cardiac catheterization was recommended. DESCRIPTION OF PROCEDURE: The patient was brought to the procedure room in a fasting state. Informed consent had been obtained prior to the procedure. All labs have been reviewed. The patient was placed supine on the catheterization table. His right radial area was prepped and draped in the usual fashion. 1% lidocaine was used for local anesthesia. Using the Seldinger technique, the radial artery was entered and a guidewire was placed. Over the guidewire, a 6- Croatian hydrophilic sheath was placed. A catheter was placed up into the ascending aorta, but because of severe tortuosity in his right subclavian artery , maneuverability of the catheter was severely diminished and the approach from the radial artery had to be abandoned. His femoral areas were prepped and draped in the usual fashion. 1% lidocaine was used for local anesthesia. The femoral artery was entered by a modified Seldinger technique and a 6-Croatian long sheath was placed into the femoral artery. The patient underwent coronary angiography, ventriculography, left ventriculogram using a 6-Croatian JL-6 catheter, a 6-Croatian JR-4 catheter, and a pigtail catheter. At the end of the procedure, the patient went on to have angioplasty with Dr. Armendariz. Please see that report for details. A total of 105 cc of contrast was used, 11 minutes of fluoro time was used. HEMODYNAMICS: Central aortic blood pressure: 124/77 with a mean of 99, left ventricular pressure of 130/2 with an end-diastolic pressure of 18. Left ventricle: The left ventricle was normal in size and systolic function. Estimated ejection fraction 60%. There were no focal wall motion abnormalities. There was no mitral regurgitation. Aortic valve and ascending aorta are normal. Left main artery: The left main was normal in size, it bifurcated into the LAD and circumflex. There was no evidence of stenosis. Left anterior descending artery: The LAD was normal in size. It gave off 2 diagonal vessels. The LAD itself was without significant disease. The distal LAD was very tortuous. The first diagonal vessel had an ostial 50% stenosis. The remainder of the vessel was normal. The second diagonal vessel had a branching course. The mid portion of the second diagonal vessel had a % stenosis at the bifurcation of 2 vessels. At that point, it was a 1.5- to 2-mm vessel and not amenable to intervention. Left circumflex artery: The left circumflex artery was normal in size and it gave off 2 obtuse marginals. There was no evidence of stenosis. Right coronary artery: The RCA was a large dominant vessel giving off the PDA and one posterolateral branch. The proximal portion of the right coronary artery had mild calcification. The distal right coronary artery had a focal 99 % stenosis just at the beginning of the 2 stents that were placed in 2013. The stent itself had no restenosis. The posterolateral branch and PDA had no disease. IMPRESSION: 1. Normal left ventricular size and systolic function. 2. 99% stenosis of the distal right coronary artery at the beginning of the distal right coronary artery stents. 3. 90% stenosis of the D2 vessel off the LAD, it was a bifurcating lesion. The size of the vessel was 1.5 to 2 mm. RECOMMENDATION: The patient will undergo angioplasty and stenting of his right coronary artery by Dr. Armendariz. His D2 lesion was the same as it was in 2013. [id number]/[facility] #: [id number] [facility]
--- NOTE | 2017-10-05 11:19 | PN ---
Subjective Date of Service: 10/05/17 Interval History: Patient seen and examined at bedside. Denies fever, chills, shortness of breath , chest discomfort, N/V/D. Tele: Sinus rhythm, rate 60-70's Family History: Unchanged from Admission Social History: Unchanged from Admission Past Medical History: Unchanged from Admission Objective Active Medications: Acetaminophen (Tylenol Tab*) 650 mg PO Q4H PRN Reason: FEVER/PAIN Al Hydrox/Mg Hydrox/Simethicone (Maalox Plus*) 30 ml PO ONCE PRN Reason: INDIGESTION Allopurinol (Zyloprim Tab*) 300 mg PO DAILY [facility] Amlodipine Besylate (Norvasc Tab*) 2.5 mg PO DAILY [facility] Aspirin (Aspirin Ec Tab*) 81 mg PO DAILY [facility] Fluticasone Propionate (Flonase Nasal [place] 50mcg*) 2 spray BOTH NARES DAILY [facility] Heparin Sodium (Porcine) (Heparin Vial(*)) 5,000 units SUBCUT Q8HR [facility] Metoprolol Tartrate (Lopressor Tab*) 50 mg PO DAILY [facility] Nitroglycerin (Nitroglycerin Tab 0.4 Mg*) 0.4 mg SL Q5M PRN Reason: ANGINA Omeprazole (Prilosec Cap*) 20 mg PO 0600 [facility] Tamsulosin HCl (Flomax Cap*) 0.4 mg PO DAILY [facility] Ticagrelor (Brilinta*) 90 mg PO BID [facility] Vital Signs - 8 hr 10/05/17 10/05/17 10/05/17 03:30 04:00 04:01 Temperature 99 F Pulse Rate 57 58 62 Respiratory 13 18 15 Rate Blood Pressure 119/76 142/80 (mmHg) O2 Sat by Pulse 94 91 93 Oximetry 10/05/17 10/05/17 10/05/17 04:30 05:00 05:01 Temperature Pulse Rate 56 59 64 Respiratory 18 16 13 Rate Blood Pressure 124/76 139/83 (mmHg) O2 Sat by Pulse 94 92 93 Oximetry 10/05/17 10/05/17 10/05/17 05:30 06:00 06:01 Temperature Pulse Rate 62 59 61 Respiratory 9 14 15 Rate Blood Pressure 128/85 139/85 (mmHg) O2 Sat by Pulse 95 94 94 Oximetry 10/05/17 10/05/17 10/05/17 06:31 07:00 07:31 Temperature Pulse Rate 59 57 67 Respiratory 16 8 19 Rate Blood Pressure 140/88 120/73 118/73 (mmHg) O2 Sat by Pulse 96 93 96 Oximetry 10/05/17 10/05/17 10/05/17 08:00 08:01 08:31 Temperature 98.1 F Pulse Rate 60 59 59 Respiratory 22 17 13 Rate Blood Pressure 154/87 130/82 (mmHg) O2 Sat by Pulse 94 95 95 Oximetry 10/05/17 10/05/17 10/05/17 09:00 09:02 09:30 Temperature Pulse Rate 73 76 72 Respiratory 13 20 19 Rate Blood Pressure 123/94 137/75 (mmHg) O2 Sat by Pulse 95 93 88 Oximetry Oxygen Devices in Use Now: None Result Diagrams: 10/05/17 06:15 10/05/17 06:15 Microbiology and Other Data: Microbiology 10/04/17 18:30 Nasal Screen MRSA (PCR)(MORIS) - Final Nasal Mrsa Detected Assess/Plan/Problems-Billing Assessment: Mr. Yates is a 67 yo male with PMH significant for CAD s/p cardiac stent x2, HTN , BPH, HLD, GERD and GOUT who presented to the emergency room with complaints of intermittent chest pain for - Patient Problems (1) Chest pain Code(s): R07.9 - CHEST PAIN, UNSPECIFIED SNOMED Code(s): 93787781 Comment: - Resolved - Troponins 0.07, 0.10, 0.13, 0.21 - Cardiology consult, input appreciated - Nuclear stress test with moderate size area of ischemia - S/P cardiac cath with 1 stent placed (2) Rhabdomyolysis Code(s): M62.82 - RHABDOMYOLYSIS SNOMED Code(s): 020799583 Comment: - Mild, Pt has chronically elevated CK - CK 1716 down to 1701 (3) GERD (gastroesophageal reflux disease) Code(s): K21.9 - GASTRO-ESOPHAGEAL REFLUX DISEASE WITHOUT ESOPHAGITIS SNOMED Code(s): 975815989 Comment: - Continue omeprazole (4) History of coronary artery disease Code(s): Z86.79 - PERSONAL HISTORY OF OTHER DISEASES OF THE CIRCULATORY SYSTEM SNOMED Code(s): 773512124 Comment: - S/P 2 cardiac stents ~ 2012 - Continue ASA and metoprolol (5) HTN (hypertension) Code(s): I10 - ESSENTIAL (PRIMARY) HYPERTENSION SNOMED Code(s): 67120768 Comment: - SBP 110-150's - Continue amlodipine and metoprolol (6) HLD (hyperlipidemia) Code(s): E78.5 - HYPERLIPIDEMIA, UNSPECIFIED SNOMED Code(s): 80403833 Comment: - No longer on a statin due to elevated CKs - Will defer to cardiology (7) Gout Code(s): M10.9 - GOUT, UNSPECIFIED SNOMED Code(s): 05668695 Comment: - Continue allopurinol (8) BPH (benign prostatic hyperplasia) Code(s): N40.0 - BENIGN PROSTATIC HYPERPLASIA WITHOUT LOWER URINRY TRACT SYMP SNOMED Code(s): 603492549 Comment: - Continue tamsulosin (9) DVT prophylaxis Code(s): CRD8475 - SNOMED Code(s): 099360916 (10) Full code status Code(s): Z78.9 - OTHER SPECIFIED HEALTH STATUS SNOMED Code(s): 794783591 Status and Disposition: Inpatient. Stable for discharge to home today. Attending: Susi Lay
[2017-10-05 11:39] VITALS: BP 117/71
--- NOTE | 2017-10-06 00:39 | DS ---
CC: Dr. Frank; Dr. Lyly Bullard; Dr. Amor; Dr. Alexi Armendariz* DISCHARGE SUMMARY: DATE OF ADMISSION: 10/03/17 DATE OF DISCHARGE: 10/05/17 ATTENDING PHYSICIAN: Susi Lay MD* (dictated by Jenny Olguin NP). PRIMARY CARE PROVIDER: Dr. Frank. PRIMARY MANAGER VISUAL: Dr. Lyly Bullard. PRIMARY DIAGNOSES: 1. Non-ST elevation myocardial infarction. 2. Status post cardiac catheterization with placement of 1 drug-eluting stent to the distal RCA. 3. Gastroesophageal reflux disease. SECONDARY DIAGNOSES: 1. Coronary artery disease. 2. Hypertension. 3. Benign prostatic hyperplasia. 4. Hyperlipidemia. CONSULTATIONS WHILE IN THE HOSPITAL: 1. Dr. Kade amor with Cardiology. 2. Dr. Alexi Armendariz. PROCEDURES WHILE IN THE HOSPITAL: 1. Status post attempted cardiac catheterization on 10/04/17, unable to perform right radial access cardiac cath by Dr. Kade Amor. 2. Status post cardiac catheterization with right groin approach on 10/04/[address] Alexi Armendariz. Normal left ventricular size and systolic function. A 99% stenosis of the right distal coronary artery at the beginning of the distal right coronary artery stent. A 90% stenosis of the D2 vessel of the LAD, it was a bifurcating lesion. The size of the vessel was 1.5 to 2 mm. The patient then underwent an angioplasty with stenting of his right coronary artery by Dr. Armendariz with a drug-eluting stent. STUDIES WHILE IN THE HOSPITAL: 1. Chest x-ray on 10/03/17. Radiologist impression: No active cardiopulmonary disease. 2. Chest, abdomen, and pelvis CTA on 10/03/17. Radiologist impression: No evidence for thoracic aortic dissection or aneurysmal dilatation is noted. No distended loops of bowel or noted. The remainder of the abdominal aorta demonstrates no evidence of aneurysmal dilation. The urinary bladder is distended. Prostate is enlarged. No hernias are noted. Small mediastinal lymph nodes are noted. 3. Nuclear medicine stress test on 10/04/17. Radiologist impression: Limited rest only. No evidence for infarct. Findings: There was a moderate size defect present in the inferolateral, which resolves on the attenuation correction images and therefore was consistent with an attenuation artifact. DISCHARGE MEDICATIONS: New home medication: 1. Brilinta 90 mg oral twice daily. 2. Acetaminophen 650 mg oral every 4 hours as needed for fever and pain. 3. Omeprazole 20 mg oral daily. Continued Home Medications: 1. Flonase nasal spray 2 sprays to both nares daily. 2. Metoprolol tartrate 50 mg oral daily. 3. Allopurinol 300 mg oral daily. 4. Amlodipine 2.5 mg oral daily. 5. Tamsulosin 0.4 mg oral daily. 6. Fluconazole cream apply topically twice daily. 7. Aspirin 81 mg oral daily. HISTORY OF PRESENT ILLNESS/HOSPITAL COURSE: Mr. Yates is a 67-year-old male with past medical history significant for coronary artery disease status post cardiac catheterization and 2 stents placed in 2012, hypertension, BPH, allergic rhinitis, hyperlipidemia, GERD, and gout, who presented to the emergency room with complaints of intermittent chest pain for 2 days. The patient states his pain started after he forcefully removed a tire. He also reported discomfort in his midsternal area similar to indigestion. Additionally he was having intermittent shortness of breath cramping down his left leg radiating across to his lower back. This presentation was different than his previous chest pain in which he had an LA. At that time, he had fatigue only. The patient took 325 mg of aspirin at home when he noticed the pain was increased while walking around at work. This caused some concern and he presented to the emergency room for further evaluation. In the emergency room, the patient had a CK or 1716, troponin of 0.07. He had an EKG showing a sinus rhythm at a rate of 60 with no acute signs of ischemia. The patient had chest x-ray with no acute findings. A CTA of his chest showing no acute findings. The hospitalists were asked to evaluate the patient for admission. During the patient's stay, he had his troponins trended. They reached 0.21. He underwent a limited stress test showing a possible area of ischemia. The patient was seen in consultation by Cardiology and went to cardiac laboratory equipment installer, underwent initially a right wrist approach that was unsuccessful, followed by right groin approach. It was determined he needed to undergo an angioplasty and the patient had 1 drug-eluting stent placed to his distal RCA below a previously placed stent, by Dr. Alexi Armendariz. The patient had fasting lipids checked showing a cholesterol level of 209 and LDL of 142. Unfortunately the patient has history of chronically elevated CK level since being placed on statins, so he is not currently on statin. The patient was monitored in the intensive care unit overnight and is doing well. Mr. Yates is stable for discharge today. Vital Signs are as follows: Temperature 98.1, heart rate 65, respiratory rate 19, O2 saturation 96% on room air, blood pressure 117/71. DISCHARGE PLAN: Mr. Yates will be discharged to home. Activity as tolerated. He has been encouraged to have light activity until he follows up with Dr. Amor. He should be on a heart healthy diet. In regards to his N-STEMI and cardiac catheterization with 1 drug-eluting stent placed, the patient has been started on Brilinta 90 mg oral twice daily. He has been continued on his aspirin and metoprolol. He is not currently on a statin due to his history of elevated CKs. The patient should be considered for some of the new PCSK9 inhibitors moving forward. These should be discussed in outpatient cardiology appointment. The patient has a followup appointment with Dr. Amor for wound check on 10/12/17 at 1 p.m. Additionally the patient has a followup appointment with Dr. yLly Bullard, his primary earthmoving labourer on 11/09/17 at 11: 45 am to discuss possibly getting started on PCSK9 agents. The patient has been asked to call Dr. Frank's office to set up a followup appointment in the next 1 to 2 weeks. Additionally the patient was complaining of some GERD. He has been started on Prilosec once daily. He has been asked to return to the emergency room for any chest pain, shortness of breath. He has been asked to call Dr. Amor and Dr. Bullard's office for any concerns at his cardiac catheterization site. This is a summarized report of a complex medical history and hospital stay. For further details, please see the entire medical record. TIME SPENT: Time for this discharge was approximately 50 minutes, greater than half that was spent with the patient discussing discharge plans and instructions. CONDITION ON DISCHARGE: Stable. JENNY ATKINS, LINDSAY [id number]/[facility] #: [id number] [facility]OS[facility]
== END 2017-10-05 01:45 | disposition home or self-care (01) | DRG 247 ==
LOC: ED 16:08 → MEDTELE 18:57 → OBSVTOIN 10-04 16:37 → ICU 10-04 17:20
PROVIDERS: ADMIT Hospitalist; ATTEND Internal Medicine
PROC: 027034Z Dilation of Coronary Artery, One Artery with Drug-eluting Intraluminal Device, Percutaneous Approach (ICD-10-PCS; 2017-10-04)
PROC: B2151ZZ Fluoroscopy of Left Heart using Low Osmolar Contrast (ICD-10-PCS; 2017-10-04)
PROC: B2111ZZ Fluoroscopy of Multiple Coronary Arteries using Low Osmolar Contrast (ICD-10-PCS; 2017-10-04)
PROC: 4A023N7 Measurement of Cardiac Sampling and Pressure, Left Heart, Percutaneous Approach (ICD-10-PCS; principal; 2017-10-04 13:45)
DX: I21.4 Non-ST elevation (NSTEMI) myocardial infarction (principal); M62.82 Rhabdomyolysis; I10 Essential (primary) hypertension; N40.0 Benign prostatic hyperplasia without lower urinary tract symptoms; M19.042 Primary osteoarthritis, left hand; M19.041 Primary osteoarthritis, right hand; I25.110 Atherosclerotic heart disease of native coronary artery with unstable angina pectoris; F12.90 Cannabis use, unspecified, uncomplicated; M10.9 Gout, unspecified; K21.9 Gastro-esophageal reflux disease without esophagitis; E78.5 Hyperlipidemia, unspecified; Z83.3 Family history of diabetes mellitus; Z82.49 Family history of ischemic heart disease and other diseases of the circulatory system; Z80.49 Family history of malignant neoplasm of other genital organs; Z79.82 Long term (current) use of aspirin; Z91.048 Other nonmedicinal substance allergy status; Z95.5 Presence of coronary angioplasty implant and graft; Z79.02 Long term (current) use of antithrombotics/antiplatelets; I25.2 Old myocardial infarction; Z87.442 Personal history of urinary calculi; Z98.42 Cataract extraction status, left eye; Z98.41 Cataract extraction status, right eye
CPT/HCPCS: 36415; 71045; 71275; 74174; 78451; 80048; 80053; 80061; 81003; 81015; 82550; 82553; 83605; 83735; 83880; 84484; 85025; 85379; 85610; 85730; 87641; 93005; 93017; 93458; 94660; 99156; 99157; 99285; A9270-GY; A9502; C1725; C1760; C1769; C1876; C1887; C9600-RC; G0378; J0583; J1644; J2250; J2270; J2405; J3010; Q9967

== ENCOUNTER 2018-03-24 21:14 | Inpatient (IN) | payer MEDICARE ==
--- NOTE | 2018-03-24 21:32 | ED ---
HPI Chest Pain - HPI Summary HPI Summary: This patient is a 68 year old M presenting to [facility] accompanied by his fiance with a chief complaint of mid sternal chest pain since this afternoon. Patient notes that he had similar pain last night but it dissipated after a few hours. The patient rates the pain 3/10 in severity. Symptoms aggravated by nothing. Symptoms alleviated by nothing. Patient reports that the pain radiates to his neck, weakness in arms, and lightheadedness. Patient denies diaphoresis, burping , or back pain. Patient had an non-STEMI 6 months ago and notes that he had the same pain at that time. Pt takes ASA, brilinta, and metroprolol. - History of Current Complaint Chief Complaint: EDChestPainROMI Hx Obtained From: Patient Onset/Duration: Started Hours Ago, Atraumatic, Still Present Timing: Lasting Hours Initial Severity: Mild Current Severity: Mild Pain Intensity: 3 Pain Scale Used: 0-10 Numeric Chest Pain Location: Mid Sternal Chest Pain Radiates: Yes Chest Pain Radiates To:: Neck Character: Pressure/Squeezing Aggravating Factor(s): Nothing Alleviating Factor(s): Nothing Associated Signs and Symptoms: Positive: Chest Pain, Weakness - in bilateral arms, Lightheadedness. Negative: Diaphoresis, Back Pain - Additional Pertinent History Primary Care Physician: [id number] - Allergy/Home Medications Allergies/Adverse Reactions: Allergies Allergy/AdvReac Type Severity Reaction Status Date / Time No Known Drug Allergies Allergy See Comment Verified 10/04/17 12:21 ENVIRONMENTAL/SEASONAL Allergy ITCHY Uncoded 10/03/17 16:11 ALLERGIES WATERY EYES, CONGESTION Home Medications: Home Medications Cetirizine HCl [Zyrtec] 10 mg PO DAILY 03/24/18 [History Confirmed 03/24/18] PMH/Surg Hx/FS Hx/Imm Hx Endocrine/Hematology History: Reports: Hx Anemia Denies: Hx Diabetes Cardiovascular History: Reports: Hx Angioplasty, Hx Coronary Artery Disease - CARDIAC CATHERIZATION WITH 2 STENT INSERTION 2012, Hx Hypercholesterolemia, Hx Hypertension, Other Cardiovascular Problems/Disorders - DR. [employer] Respiratory History: Reports: Other Respiratory Problems/Disorders - DEVIATED SEPTUM, CONGESTED GI History: Denies: Other GI Disorders Comment Only: Hx Gastroesophageal Reflux Disease - DENIES BUT TAKING DAILY OMEPRAZOLE History: Reports: Hx Benign Prostatic Hyperplasia, Hx Kidney Stones, Other Problems/Disorders - BPH Denies: Hx Renal Disease Musculoskeletal History: Reports: Hx Arthritis - OSMANI HANDS Denies: Other Musculoskeletal History Sensory History: Reports: Hx Cataracts - BILATERAL, Hx Contacts or Glasses - GLASSES Denies: Hx Deafness, Hx Hearing Aid Opthamlomology History: Reports: Hx Cataracts - BILATERAL, Hx Contacts or Glasses - GLASSES Neurological History: Reports: Hx Headaches - OCCASIONAL, Other Neuro Impairments/Disorders - OCCASIONAL DIZZINESS WHEN BENDING - Surgical History Surgery Procedure, Year, and Place: 05/2013 CARDIAC CATHERIZATION WITH 2 CARDIAC STENTS INSERTED, [facility]. 2008 RIGHT URETEROSCOPY, LASER LITHOTRIPSY, RIGHT URETERAL STENT INSERTION, [facility] [place]. 09/06/2014 COLONOSCOPY, [facility] Hx Anesthesia Reactions: No Infectious Disease History: No Infectious Disease History: Denies: Traveled Outside the [place] in Last 30 Days - Family History Known Family History: Negative: Cardiac Disease, Renal Disease - Social History Alcohol Use: None Hx Substance Use: Yes Substance Use Type: Reports: Marijuana Substance Use Comment - Amount & Last Used: EVERYDAY Hx Tobacco Use: No Smoking Status (MU): Never Smoked Tobacco Have You Smoked in the Last Year: No Review of Systems Negative: Skin Diaphoresis Positive: Chest Pain Negative: Vomiting Musculoskeletal: Other - negative back pain, positive neck pain Neurological: Other - lightheadedness Positive: Weakness - in bilateral arms All Other Systems Reviewed And Are Negative: Yes Physical Exam - Summary Physical Exam Summary: VITAL SIGNS: Reviewed. GENERAL: Patient is a well-developed and nourished MALE who is lying comfortable in the stretcher. Patient is not in any acute respiratory distress. HEAD AND FACE: No signs of trauma. No ecchymosis, hematomas or skull depressions. No sinus tenderness. EYES: PERRLA, EOMI x 2, No injected conjunctiva, no nystagmus. EARS: Hearing grossly intact. Ear canals and tympanic membranes are within normal limits. MOUTH: Oropharynx within normal limits. NECK: Supple, trachea is midline, no adenopathy, no JVD, no carotid bruit, no c- spine tenderness, neck with full ROM. CHEST: Symmetric, no tenderness at palpation LUNGS: Clear to auscultation bilaterally. No wheezing or crackles. CVS: Regular rate and rhythm, S1 and S2 present, no murmurs or gallops appreciated. ABDOMEN: Soft, non-tender. No signs of distention. No rebound no guarding, and no masses palpated. Bowel sounds are normal. EXTREMITIES: FROM in all major joints, no edema, no cyanosis or clubbing. NEURO: Alert and oriented x 3. No acute neurological deficits. Speech is normal and follows commands. SKIN: Dry and warm Triage Information Reviewed: Yes Vital Signs On Initial Exam: Initial Vitals Temp Pulse Resp BP Pulse Ox 97.6 F 56 15 151/85 97 03/24/18 21:16 03/24/18 21:16 03/24/18 21:16 03/24/18 21:16 03/24/18 21:16 Vital Signs Reviewed: Yes Diagnostics - Vital Signs Vital Signs Temp Pulse Resp BP Pulse Ox 03/24/18 21:16 97.6 F 56 15 151/85 97 - Laboratory Result Diagrams: 03/24/18 21:46 03/24/18 21:46 Lab Statement: Any lab studies that have been ordered have been reviewed, and results considered in the medical decision making process. - Radiology CXR Xray Interpretation: No Acute Changes - No acute findings Radiology Interpretation Completed By: ED Physician - Dr. Cope, pending official report - EKG 21:19 Cardiac Rate: NL - at 54 bpm EKG Rhythm: Sinus Rhythm EKG Interpretation: Sinus rhythm at 54 bpm with nml intervals, nml axis, no ischemic changes Chest Pain Course/Dx - Course Course Of Treatment: An EKG reveals sinus rhythm at 54 bpm with nml axis, nml intervals, and no ischemic changes. CXR reveals no acute findings. Test results with no significant abnormalities. In the ED course the patient was given ASA. Hospitalist was paged at 22:30. We discussed patient care with Dr. Nazario at 22: 52 and they recommended admitting the patient. Patient will be admitted to [facility]. The patient is agreeable with this plan. - Diagnoses Provider Diagnoses: Chest pain - Provider Notifications Discussed Care Of Patient With: Radha Nazario Time Discussed With Above Provider: 22:52 Instructed by Provider To: Admit As Inpatient Discharge - Sign-Out/Discharge Documenting (check all that apply): Patient Departure - admit - Discharge Plan Condition: Stable Disposition: ADMITTED TO [facility] Referrals: Ildefonso Frank MD [Primary Care Provider] - - Attestation Statements Document Initiated by Scribe: Yes Documenting Scribe: Diya Angeles Provider For Whom Scribe is Documenting (Include Credential): Yeison Cope MD Scribe Attestation: I, Diya Angeles, scribed for Yeison Cope MD on 03/24/18 at 2231.
[2018-03-24] MEDS ORDERED: Aspirin 81 mg CHEW TAB* 81 MG TAB.CHEW PO ONE (21:42)
[2018-03-24 21:59] LABS: ABS Basophils 0 10^3/ul (0-0.2); ABS Eosinophils 0.4 10^3/ul (0-0.6); ABS Lymphocytes 1.5 10^3/ul (1.0-4.8); ABS Monocytes 0.5 10^3/ul (0-0.8); ABS Neutrophils 3.3 10^3/ul (1.5-7.7); ABS Nucleated RBC 0 10^3/ul; Eosinophil % 7.2 % (0-6); Hematocrit 40 % (42-52); Hemoglobin 13.6 g/dl (14.0-18.0); Lymphocyte % 25.9 % (25-47); Mean Corpuscular HGB Conc 34 g/dl (31-36); Mean Corpuscular Hemoglobin 32 pg (27-31); Mean Corpuscular Volume 94 fL (80-94); Mean Platelet Volume 7.1 um3 (7.4-10.4); Nucleated Red Blood Cells % 0.1; Platelet Count 186 10^3/ul (150-450); Red Blood Count 4.26 10^6/ul (4.00-5.40); Red Cell Distribution Width 13 % (10.5-15); White Blood Count 5.8 10^3/ul (3.5-10.8)
[2018-03-24 22:07] LABS: INR 0.86 (0.77-1.02)
[2018-03-25] MEDS ORDERED: Acetaminophen TAB* 325 MG PO PRN (02:06)
[2018-03-25] MEDS ORDERED: Fluticasone NASAL SPRAY 50MCG* 16 gm SPRAY BTL BOTH NARES PRN (02:10)
[2018-03-25] MEDS: NS 0.9% 1000 ML* 1,000 ML IV SCH ×2 (03:46→12:34)
--- NOTE | 2018-03-25 05:07 | ADMNOTE ---
Subjective Date of Service: 03/25/18 Interval History: poor historian this is a h/p for admission 68 yr old wm with hx of cad with stents placed 09/2017 presented to er with chest pain at rest. this chest pain is similar to his heart attack back 09/29. pt described as localized irritating anterior chest pain achy type with no other associated symtoms ---> pt had girlfriend to drive him to er and lives about 10 min away. pt got asa 325 mg from er. initial trop and ekg were neg --- > cardio consult will be placed in am Family History: Findings - denied any sig cad htn dm cva Social History: Findings - no cig no etoh but smokes pots daily able to walk indep Past Medical History: Findings - cad with two stents placed 09/29 htn bph hyperlipidemia gerd hx of gout ? hx of anemia due to gib smokes pots daily no pshx Review of Systems - Measurements Intake and Output: Intake and Output Last 24 Hours 03/22/18 03/23/18 03/24/18 03/25/18 06:59 06:59 06:59 06:59 Weight 152 lb 14.4 oz - Review of Systems General Comments: 05/25 ros reviewed with pt please refer to hpi Objective Active Medications: Acetaminophen (Tylenol Tab*) 650 mg PO Q4H PRN PRN Reason: FEVER/PAIN Allopurinol (Zyloprim Tab*) 300 mg PO DAILY [facility] Amlodipine Besylate (Norvasc Tab*) 2.5 mg PO DAILY [facility] Aspirin (Aspirin Ec Tab*) 81 mg PO DAILY [facility] Fluticasone Propionate (Flonase Nasal [place] 50mcg*) 2 spray BOTH NARES DAILY PRN PRN Reason: allergies Heparin Sodium (Porcine) (Heparin Vial(*)) 5,000 units SUBCUT Q8HR [facility] Sodium Chloride (Ns 0.9% 1000 Ml*) 1,000 mls @ 100 mls/hr IV PER RATE [facility] Last Admin: 03/25/18 03:46 Dose: 100 mls/hr Metoprolol Tartrate (Lopressor Tab*) 50 mg PO DAILY [facility] Omeprazole (Prilosec Cap*) 20 mg PO 0730 [facility] Tamsulosin HCl (Flomax Cap*) 0.4 mg PO DAILY [facility] Ticagrelor (Brilinta*) 90 mg PO BID [facility] Vital Signs - 8 hr 03/24/18 03/24/18 03/24/18 21:16 21:28 21:58 Temperature 97.6 F Pulse Rate 56 56 61 Respiratory 15 19 Rate Blood Pressure 151/85 136/77 110/63 (mmHg) O2 Sat by Pulse 97 93 95 Oximetry 03/24/18 03/24/18 03/24/18 22:00 22:29 22:58 Temperature Pulse Rate 59 57 56 Respiratory 25 20 19 Rate Blood Pressure 137/80 123/72 (mmHg) O2 Sat by Pulse 94 95 95 Oximetry 03/24/18 03/24/18 03/24/18 23:00 23:01 23:28 Temperature Pulse Rate 56 53 53 Respiratory 18 21 18 Rate Blood Pressure 117/74 (mmHg) O2 Sat by Pulse 95 95 93 Oximetry 03/24/18 03/25/18 03/25/18 23:58 00:00 00:28 Temperature Pulse Rate 53 53 53 Respiratory 12 13 14 Rate Blood Pressure 122/73 120/73 (mmHg) O2 Sat by Pulse 95 95 92 Oximetry 03/25/18 03/25/18 03/25/18 00:58 01:00 01:28 Temperature Pulse Rate 60 64 52 Respiratory 14 17 16 Rate Blood Pressure 118/75 106/59 (mmHg) O2 Sat by Pulse 95 95 94 Oximetry 03/25/18 03/25/18 03/25/18 01:58 02:00 02:28 Temperature Pulse Rate 55 53 Respiratory 17 16 16 Rate Blood Pressure 115/60 105/61 (mmHg) O2 Sat by Pulse 93 93 Oximetry 03/25/18 03/25/18 02:38 03:15 Temperature 98.6 F 98.0 F Pulse Rate 53 57 Respiratory 18 16 Rate Blood Pressure 105/61 131/85 (mmHg) O2 Sat by Pulse 100 97 Oximetry Oxygen Devices in Use Now: None Eyes: No Scleral Icterus, PERRLA Ears/Nose/Mouth/Throat: NL Teeth, Lips, Gums, Clear Oropharnyx, Mucous Membranes Moist Neck: NL Appearance and Movements; NL JVP, Trachea Midline, No Thyroid Enlargement, Masses Respiratory: Symmetrical Chest Expansion and Respiratory Effort, Clear to Auscultation Cardiovascular: NL Sounds; No Murmurs; No JVD, RRR, No Edema Abdominal: NL Sounds; No Tenderness; No Distention Extremities: No Edema, No Clubbing, Cyanosis Skin: No Rash or Ulcers Neurological: Alert and Oriented x 3, NL Sensation, NL Gait, NL Muscle Strength and Tone Result Diagrams: 03/25/18 05:21 03/26/18 07:05 EKG Data: ekg ns no acute st t change seen Assess/Plan/Problems-Billing Assessment: - Patient Problems (1) Chest pain Current Visit: Yes Status: Acute Code(s): R07.9 - CHEST PAIN, UNSPECIFIED SNOMED Code(s): 56216334 Comment: Troponins all negative however pain returned with ambulation Appreciate cardiology consultation - Pt will remain hospitalized until Wednesday for stress test (2) Rhabdomyolysis Current Visit: No Status: Acute Code(s): M62.82 - RHABDOMYOLYSIS SNOMED Code(s): 403012752 Comment: bicarb wnl no lytes abnormality - monitering lytes (3) BPH (benign prostatic hyperplasia) Current Visit: Yes Status: Chronic Code(s): N40.0 - BENIGN PROSTATIC HYPERPLASIA WITHOUT LOWER URINRY TRACT SYMP SNOMED Code(s): 896679197 Comment: - Continue tamsulosin (4) Gout Current Visit: No Status: Chronic Code(s): M10.9 - GOUT, UNSPECIFIED SNOMED Code(s): 27576258 Comment: - Continue allopurinol (5) HLD (hyperlipidemia) Current Visit: No Status: Chronic Code(s): E78.5 - HYPERLIPIDEMIA, UNSPECIFIED SNOMED Code(s): 50296334 Comment: - will defer to cardio reg antilipid med
[2018-03-25] MEDS: Heparin VIAL(*) 5000 UNITS/ML VIAL (FIVE THOUSAND) SUBCUT SCH ×3 (05:25→21:38)
[2018-03-25 05:57] LABS: ABS Basophils 0 10^3/ul (0-0.2); ABS Eosinophils 0.4 10^3/ul (0-0.6); ABS Lymphocytes 1.3 10^3/ul (1.0-4.8); ABS Monocytes 0.5 10^3/ul (0-0.8); ABS Neutrophils 3.2 10^3/ul (1.5-7.7); ABS Nucleated RBC 0 10^3/ul; Hematocrit 39 % (42-52); Hemoglobin 13.5 g/dl (14.0-18.0); Lymphocyte % 23.5 % (25-47); Mean Corpuscular HGB Conc 34 g/dl (31-36); Mean Corpuscular Hemoglobin 32 pg (27-31); Mean Corpuscular Volume 93 fL (80-94); Mean Platelet Volume 7.2 um3 (7.4-10.4); Nucleated Red Blood Cells % 0.1; Platelet Count 187 10^3/ul (150-450); Red Blood Count 4.25 10^6/ul (4.00-5.40); Red Cell Distribution Width 14 % (10.5-15); White Blood Count 5.3 10^3/ul (3.5-10.8)
[2018-03-25 06:23] LABS: EGFR Non-African American 95.6 (>60)
--- NOTE | 2018-03-25 08:03 | RAD ---
Indication: Chest pain. Single frontal view of the chest performed at 2146 hours was reviewed. Comparison is made with previous exam dated October 03, 2017. No mediastinal shift is noted. Heart is of normal size and configuration. Lung wisdom appear clear. IMPRESSION: NO ACTIVE CARDIOPULMONARY DISEASE IS NOTED.
[2018-03-25] MEDS: Tamsulosin CAP* 0.4 MG PO SCH (08:26)
[2018-03-25] MEDS: Omeprazole CAP* 20 MG PO SCH (08:26)
[2018-03-25] MEDS: Allopurinol TAB* 300 MG PO SCH (08:26)
[2018-03-25] MEDS: amLODIPine TAB* 5 MG PO SCH (08:27)
[2018-03-25] MEDS: Aspirin EC TAB* 81 MG TAB.EC PO SCH (08:27)
[2018-03-25] MEDS: Ticagrelor* 90 MG TAB PO SCH ×2 (08:28→21:38)
[2018-03-25] MEDS: Metoprolol Tartrate TAB* 50 mg PO SCH (08:28)
--- NOTE | 2018-03-25 20:13 | PN ---
Subjective Date of Service: 03/25/18 Interval History: Pain resolved but returned with ambulation tele - nsr Family History: Findings - denied any sig cad htn dm cva Social History: Findings - no cig no etoh but smokes pots daily able to walk indep Past Medical History: Findings - cad with two stents placed 09/29 htn bph hyperlipidemia gerd hx of gout ? hx of anemia due to gib smokes pots daily no pshx Objective Active Medications: Acetaminophen (Tylenol Tab*) 650 mg PO Q4H PRN PRN Reason: FEVER/PAIN Allopurinol (Zyloprim Tab*) 300 mg PO DAILY [facility] Last Admin: 03/25/18 08:26 Dose: 300 mg Amlodipine Besylate (Norvasc Tab*) 2.5 mg PO DAILY [facility] Last Admin: 03/25/18 08:27 Dose: 2.5 mg Aspirin (Aspirin Ec Tab*) 81 mg PO DAILY [facility] Last Admin: 03/25/18 08:27 Dose: 81 mg Fluticasone Propionate (Flonase Nasal [place] 50mcg*) 2 spray BOTH NARES DAILY PRN PRN Reason: allergies Heparin Sodium (Porcine) (Heparin Vial(*)) 5,000 units SUBCUT Q8HR [facility] Last Admin: 03/25/18 13:53 Dose: 5,000 units Metoprolol Tartrate (Lopressor Tab*) 50 mg PO DAILY [facility] Last Admin: 03/25/18 08:28 Dose: Not Given Omeprazole (Prilosec Cap*) 20 mg PO 0730 [facility] Last Admin: 03/25/18 08:26 Dose: 20 mg Tamsulosin HCl (Flomax Cap*) 0.4 mg PO DAILY [facility] Last Admin: 03/25/18 08:26 Dose: 0.4 mg Ticagrelor (Brilinta*) 90 mg PO BID [facility] Last Admin: 03/25/18 08:28 Dose: 90 mg Vital Signs - 8 hr 03/25/18 03/25/18 12:29 15:12 Temperature 98.3 F 98.6 F Pulse Rate 57 67 Respiratory 20 14 Rate Blood Pressure 116/69 120/69 (mmHg) O2 Sat by Pulse 95 97 Oximetry Oxygen Devices in Use Now: None Appearance: NAD Eyes: No Scleral Icterus, PERRLA Ears/Nose/Mouth/Throat: NL Teeth, Lips, Gums, Clear Oropharnyx Neck: NL Appearance and Movements; NL JVP, Trachea Midline Respiratory: Symmetrical Chest Expansion and Respiratory Effort, Clear to Auscultation Cardiovascular: RRR Abdominal: NL Sounds; No Tenderness; No Distention, No Hepatosplenomegaly Lymphatic: No Cervical Adenopathy Extremities: No Edema Neurological: Alert and Oriented x 3 Result Diagrams: 03/25/18 05:21 03/25/18 05:21 EKG Data: ekg ns no acute st t change seen Assess/Plan/Problems-Billing Assessment: 68 M recent PCI to RCA in September returning with chest pain worse with exertion - Patient Problems (1) Chest pain Comment: Troponins all negative however pain returned with ambulation Appreciate cardiology consultation - Pt will remain hospitalized until Wednesday for stress test (2) Elevated CK Comment: chronic trend (3) BPH (benign prostatic hyperplasia) Comment: - Continue tamsulosin (4) DVT prophylaxis Comment: HSQ
[2018-03-26] MEDS: Acetaminophen TAB* 325 MG PO PRN ×2 (01:09→15:01)
--- NOTE | 2018-03-26 02:18 | CONS ---
CC: Dr. Sloan Gomes; Dr. Ildefonso Frank; Dr. Lyly Bullard CARDIOLOGY CONSULTATION: DATE OF CONSULT: 03/25/18 REFERRING PHYSICIAN: Dr. Sloan Gomes. REASON FOR CARDIOLOGY CONSULTATION: Chest pain in this patient with known history of CAD with RCA MARCIA PCI last on 10/04/17. HISTORY OF PRESENT ILLNESS: Mr. Yates states that he has been having chest discomfort in his midsternum, recurrent for the past 2 days. He also notes indigestion with this. 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 His chest discomfort predominantly occurred when he was "lying around" and lasted up to 3 hours. He did not take nitro. There was no radiation of his chest discomfort. He has had shortness of breath. He is very clear; however, that this chest discomfort is similar what he had prior to his last stent in September 2017 and it resolved after his stent was placed until recently. PAST MEDICAL HISTORY: Non-STEMI on 10/03/17. He has had prior RCA stents placed in 2012 x2 and then he had a 3rd stent, which is drug-eluting placed to the distal RCA on 10/04/17. He has a history of GERD, chronically elevated CK level, hypertension, BPH, hyperlipidemia,allergies. Cardiac catheterization completed on 10/04/17 showed 99% stenosis of the distal RCA, at the beginning of the distal RCA stent for which he underwent drug- eluting stent. Normal LV function noted. He is also known to have a 90% stenosis of the D2 vessel of the LAD and because of the vessel measurement was 1.5 to 2 mm, he is felt best treated medically for that. OUT PATIENT MEDICATIONS: 1. Flonase spray. 2. Lopressor 50 mg once a day. 3. Allopurinol 300 mg a day. 4. Norvasc 2.5 mg a day. 5. Flomax 0.4 mg a day. 6. Enteric coated aspirin 81 mg once a day. 7. Tylenol 650 mg p.o. q.4 hours p.r.n. 8. Omeprazole 20 mg once a day. 9. Brilinta 90 mg p.o. b.i.d. 10. Cetirizine 10 mg once a day. ALLERGIES TO MEDICATIONS: None. He denies shrimp, seafood or dye allergies. FAMILY HISTORY: Negative for cardiac disease including DE. Also negative for diabetes or stroke. His father of a "back aneurysm" at the age of 62, his mother of cancer. SOCIAL HISTORY: Negative for smoking cigarettes. He does smoke marijuana. He does not drink alcohol for the past 25 years. He did not graduate from high school. He is single and lives with his girlfriend of 3 to 4 years. 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 He does not do more exercise, but states that it is very active working in his restaurant. REVIEW OF SYSTEMS: The patient denies personal history of stroke, cancer, vomiting up blood, coughing of blood, bright red blood per rectum, bleeding stomach ulcers. He does have a history of renal calculi with prior renal artery stent. He denies cholelithiasis. He denies asthma, emphysema, pneumonia, tuberculosis. He does have a history of sleep apnea for which he uses CPAP with good affect. He does not use oxygen at home. He denies diabetes. He has a history of hypertension. He denies prior DE, congestive heart failure, cardiac surgery, cardiac murmurs, palpitations, psychiatric illnesses, lupus, psoriasis, seizures, Parkinson's disease, myasthenia gravis, thyroid disorders, liver disorders, kidney disorders, claudication symptoms, pulmonary emboli, deep venous thrombosis, peripheral arterial disease. He does get heartburn. All other review of systems negative x14 except as per this document. PHYSICAL EXAM: Vital Signs: Height 5 feet 6 inches, weight 152 pounds, temperature 98.6 degrees Fahrenheit, pulse 67, blood pressure 120/69, O2 saturation 97%. On general exam, he is a pleasant gentleman, in no acute distress. HEENT shows the cranium is normocephalic and atraumatic. He has moist mucosal membranes. Neck veins are not distended. There are no carotid bruits. Visible skin warm and perfused. Affect is appropriate. He appears grossly oriented. No significant kyphoscoliosis on back exam. Lungs are clear to auscultation. No wheezes and no rales. Cardiac exam: S1, S2. Regular rate. No significant murmurs, rubs or gallops. PMI is nondisplaced. Abdomen: Soft, nondistended, appears benign. Extremities: Without significant edema, pulses appear grossly intact. DIAGNOSTIC STUDIES/LAB DATA: The patient completed serum chemistry, sodium 140 , potassium 4.1, chloride 107, bicarbonate 27, BUN 16, creatinine 0.8. The patient has chronic hyper CK with CPK of 3225 on admission. That seems to be a bit higher than his baseline. LDL checked here was 123. INR is 0.86. White blood cell count 5.3. Hematocrit 39, platelet count 187. Troponins 0 followed by 0.01 followed by 0, followed by 0. A 12-lead EKG completed 03/24/18 at 2119, shows sinus bradycardia at 54 beats per minute with questionable left atrial enlargement. He completed a 12-lead EKG 03/25/18 at 7:47, which showed sinus bradycardia and really no significant change from prior EKG, felt fairly benign. The patient's last cardiac catheterization 10/05/17, with normal left ventricular ejection fraction of 60%, normal left main, LAD patent, diagonal 1 lesion of 50% at the ostium and second diagonal vessel with a 90% stenosis of 1.5 to 2 mm diameter, not felt amenable to intervention. Circumflex normal, RCA at that time showed prior stents placed in 2012 were patent; however, distal RCA had a focal 99% stenosis at the beginning of the 2 stents for which he underwent drug-eluting stent PCI to that RCA lesion with a 2.5 x 16 Synergy drug -eluting stent. IMPRESSION: Mr. Yates is a pleasant 68-year-old gentleman with known history of coronary artery disease with recurrent angina. He has ruled out for DE but continues to have some chest discomfort when he ambulates on the [facility] as well as feeling woozy. I feel it is appropriate for him to have a stress ischemic evaluation prior to discharge to assure patency of his RCA stents acknowledging that his chest discomfort may be simply due to his known small vessel diagonal lesion felt best treated medically (he is currently on Norvasc) plus/minus GERD. RECOMMENDATIONS: 1. Plan for exercise Myoview nuclear stress scan on 03/28/18. 2. Continue aspirin with Brilinta and Norvasc. Given his relative bradycardia , would change his Metoprolol to atenolol 25 mg once a day and tolerate heart rates greater than 50 as long as his blood pressure is stable. 2. Recommend discontinuation of smoking of marijuana especially given smoking causing inflammation of the vascular endothelium. 3. The patient is a not a candidate for statin given his chronic hyper CK. By Dr. Gomes's description, it sounds like the patient receives PCSK9 inhibitor as an outpatient, which he may continue to follow up with outpatient communication technician, Dr. Bullard after his discharge. 4. Other management as per the hospitalist medicine service, and I have discussed the case with Dr. Sloan Gomes. Dear Dr. Sloan Gomes, many thanks for this kind cardiovascular consultation opportunity. Please do not hesitate to contact me if you have any questions or concerns regarding the patient's cardiovascular consultative care. [id number]/CPS #: [id number] [id number]
[2018-03-26] MEDS: Heparin VIAL(*) 5000 UNITS/ML VIAL (FIVE THOUSAND) SUBCUT SCH ×3 (05:18→21:01)
[2018-03-26 07:29] LABS: EGFR Non-African American 90.3 (>60)
[2018-03-26] MEDS: Omeprazole CAP* 20 MG PO SCH (09:38)
[2018-03-26] MEDS: Allopurinol TAB* 300 MG PO SCH (09:39)
[2018-03-26] MEDS: amLODIPine TAB* 5 MG PO SCH (09:39)
[2018-03-26] MEDS: Aspirin EC TAB* 81 MG TAB.EC PO SCH (09:39)
[2018-03-26] MEDS: Tamsulosin CAP* 0.4 MG PO SCH (09:39)
[2018-03-26] MEDS: Ticagrelor* 90 MG TAB PO SCH ×2 (09:40→21:01)
[2018-03-26] MEDS: Metoprolol Tartrate TAB* 50 mg PO SCH (09:41)
--- NOTE | 2018-03-26 15:41 | PN ---
Subjective Date of Service: 03/26/18 Interval History: no further CP Has only walked as far as bathroom no SOB Family History: Findings - denied any sig cad htn dm cva Social History: Findings - no cig no etoh but smokes pots daily able to walk indep Past Medical History: Findings - cad with two stents placed 09/29 htn bph hyperlipidemia gerd hx of gout ? hx of anemia due to gib smokes pots daily no pshx Objective Active Medications: Acetaminophen (Tylenol Tab*) 650 mg PO Q4H PRN PRN Reason: FEVER/PAIN Last Admin: 03/26/18 15:01 Dose: 650 mg Allopurinol (Zyloprim Tab*) 300 mg PO DAILY [facility] Last Admin: 03/26/18 09:39 Dose: 300 mg Amlodipine Besylate (Norvasc Tab*) 2.5 mg PO DAILY [facility] Last Admin: 03/26/18 09:39 Dose: 2.5 mg Aspirin (Aspirin Ec Tab*) 81 mg PO DAILY [facility] Last Admin: 03/26/18 09:39 Dose: 81 mg Atenolol (Tenormin Tab*) 25 mg PO DAILY [facility] Fluticasone Propionate (Flonase Nasal [place] 50mcg*) 2 spray BOTH NARES DAILY PRN PRN Reason: allergies Heparin Sodium (Porcine) (Heparin Vial(*)) 5,000 units SUBCUT Q8HR [facility] Last Admin: 03/26/18 14:50 Dose: 5,000 units Omeprazole (Prilosec Cap*) 20 mg PO 0730 [facility] Last Admin: 03/26/18 09:38 Dose: 20 mg Tamsulosin HCl (Flomax Cap*) 0.4 mg PO DAILY [facility] Last Admin: 03/26/18 09:39 Dose: 0.4 mg Ticagrelor (Brilinta*) 90 mg PO BID [facility] Last Admin: 03/26/18 09:40 Dose: 90 mg Vital Signs - 8 hr 03/26/18 11:15 Temperature 98.6 F Pulse Rate 54 Respiratory 16 Rate Blood Pressure 119/65 (mmHg) O2 Sat by Pulse 94 Oximetry Oxygen Devices in Use Now: None Appearance: NAD Eyes: No Scleral Icterus, PERRLA Ears/Nose/Mouth/Throat: NL Teeth, Lips, Gums, Clear Oropharnyx Neck: NL Appearance and Movements; NL JVP, Trachea Midline Respiratory: Symmetrical Chest Expansion and Respiratory Effort, Clear to Auscultation Cardiovascular: RRR Abdominal: NL Sounds; No Tenderness; No Distention, No Hepatosplenomegaly Lymphatic: No Cervical Adenopathy Extremities: No Edema Neurological: Alert and Oriented x 3 Result Diagrams: 03/25/18 05:21 03/26/18 07:05 EKG Data: ekg ns no acute st t change seen Assess/Plan/Problems-Billing Assessment: 68 M with multiple stents to RCA most recently PCI to RCA in September returning with chest pain worse with exertion - Patient Problems (1) Chest pain Comment: Troponins all negative however pain returned with ambulation Appreciate cardiology consultation - Pt will remain hospitalized until Wednesday for stress test (2) Elevated CK Comment: chronic trend (3) BPH (benign prostatic hyperplasia) Comment: - Continue tamsulosin (4) DVT prophylaxis Comment: HSQ
[2018-03-27] MEDS: Heparin VIAL(*) 5000 UNITS/ML VIAL (FIVE THOUSAND) SUBCUT SCH ×3 (05:14→21:19)
[2018-03-27] MEDS: amLODIPine TAB* 5 MG PO SCH (08:13)
[2018-03-27] MEDS: Omeprazole CAP* 20 MG PO SCH (08:15)
[2018-03-27] MEDS: Allopurinol TAB* 300 MG PO SCH (08:16)
[2018-03-27] MEDS: Atenolol TAB* 25 MG PO SCH (08:16)
[2018-03-27] MEDS: Ticagrelor* 90 MG TAB PO SCH ×2 (08:16→21:19)
[2018-03-27] MEDS: Aspirin EC TAB* 81 MG TAB.EC PO SCH (08:16)
[2018-03-27] MEDS: Tamsulosin CAP* 0.4 MG PO SCH (08:16)
[2018-03-27] MEDS: Acetaminophen TAB* 325 MG PO PRN (11:38)
--- NOTE | 2018-03-27 15:18 | PN ---
Subjective Date of Service: 03/27/18 Interval History: LH when bending over to pick things off floor Pain in left chest for "minutes" when twisting in bed. Happened 1x this AM. Will alert staff if occurs again Ambulated around floor without CP/SOB Family History: Findings - denied any sig cad htn dm cva Social History: Findings - no cig no etoh but smokes pots daily able to walk indep Past Medical History: Findings - cad with two stents placed 09/29 htn bph hyperlipidemia gerd hx of gout ? hx of anemia due to gib smokes pots daily no pshx Objective Active Medications: Acetaminophen (Tylenol Tab*) 650 mg PO Q4H PRN PRN Reason: FEVER/PAIN Last Admin: 03/27/18 11:38 Dose: 650 mg Allopurinol (Zyloprim Tab*) 300 mg PO DAILY [facility] Last Admin: 03/27/18 08:16 Dose: 300 mg Amlodipine Besylate (Norvasc Tab*) 2.5 mg PO DAILY [facility] Last Admin: 03/27/18 08:13 Dose: 2.5 mg Aspirin (Aspirin Ec Tab*) 81 mg PO DAILY [facility] Last Admin: 03/27/18 08:16 Dose: 81 mg Atenolol (Tenormin Tab*) 25 mg PO DAILY [facility] Last Admin: 03/27/18 08:16 Dose: 25 mg Fluticasone Propionate (Flonase Nasal [place] 50mcg*) 2 spray BOTH NARES DAILY PRN PRN Reason: allergies Heparin Sodium (Porcine) (Heparin Vial(*)) 5,000 units SUBCUT Q8HR [facility] Last Admin: 03/27/18 13:24 Dose: 5,000 units Omeprazole (Prilosec Cap*) 20 mg PO 0730 [facility] Last Admin: 03/27/18 08:15 Dose: 20 mg Tamsulosin HCl (Flomax Cap*) 0.4 mg PO DAILY [facility] Last Admin: 03/27/18 08:16 Dose: 0.4 mg Ticagrelor (Brilinta*) 90 mg PO BID [facility] Last Admin: 03/27/18 08:16 Dose: 90 mg Vital Signs - 8 hr 03/27/18 03/27/18 07:23 10:53 Temperature 98.8 F 98.7 F Pulse Rate 58 64 Respiratory 14 14 Rate Blood Pressure 124/74 114/65 (mmHg) O2 Sat by Pulse 94 98 Oximetry Oxygen Devices in Use Now: None Appearance: NAD Eyes: No Scleral Icterus, PERRLA Ears/Nose/Mouth/Throat: NL Teeth, Lips, Gums Neck: NL Appearance and Movements; NL JVP, Trachea Midline Respiratory: Symmetrical Chest Expansion and Respiratory Effort, Clear to Auscultation Cardiovascular: NL Sounds; No Murmurs; No JVD, RRR Abdominal: NL Sounds; No Tenderness; No Distention Extremities: No Edema Skin: No Rash or Ulcers Neurological: Alert and Oriented x 3 Result Diagrams: 03/25/18 05:21 03/26/18 07:05 EKG Data: ekg ns no acute st t change seen Assess/Plan/Problems-Billing Assessment: 68M multiple stents to RCA most recent in September returning to [facility] [place] with chest pain worse with exertion - Patient Problems (1) Chest pain Comment: Troponins all negative however pain returned with ambulation Appreciate cardiology consultation - Pt will remain hospitalized until Wednesday for stress test (2) Elevated CK Comment: chronic trend (3) BPH (benign prostatic hyperplasia) Comment: - Continue tamsulosin (4) DVT prophylaxis Comment: HSQ
[2018-03-28] MEDS: Acetaminophen TAB* 325 MG PO PRN (02:55)
[2018-03-28] MEDS: Heparin VIAL(*) 5000 UNITS/ML VIAL (FIVE THOUSAND) SUBCUT SCH ×2 (05:07→14:05)
[2018-03-28 06:01] LABS: EGFR Non-African American 81.3 (>60)
[2018-03-28] MEDS: amLODIPine TAB* 5 MG PO SCH (09:09)
[2018-03-28] MEDS: Atenolol TAB* 25 MG PO SCH (09:09)
[2018-03-28] MEDS: Allopurinol TAB* 300 MG PO SCH (09:16)
[2018-03-28] MEDS: Omeprazole CAP* 20 MG PO SCH (09:17)
[2018-03-28] MEDS: Tamsulosin CAP* 0.4 MG PO SCH (09:18)
[2018-03-28] MEDS: Ticagrelor* 90 MG TAB PO SCH (09:18)
[2018-03-28] MEDS: Aspirin EC TAB* 81 MG TAB.EC PO SCH (09:18)
[2018-03-28 11:43] VITALS: BP 121/78
[2018-03-28] MEDS ORDERED: Regadenoson* 0.4 MG/5 ML SYRINGE ONE (13:02)
--- NOTE | 2018-03-28 14:28 | RAD ---
Edited for charges. INDICATION: Chest pain with exertion COMPARISON: CTA October 03, 2017 TECHNIQUE: SPECT imaging was performed. Rest images were acquired following the intravenous injection of 10.17 millicuries of technetium 99m tetrofosmin at 0650 hours. At 1302 hours stress images were acquired following the intravenous administration of 25.9 millicuries of technetium 99m tetrofosmin. The patient received intravenous Lexiscan prior to the stress image acquisition. FINDINGS: On the non attenuated correction images there is lack of uptake at the inferior myocardium on both the rest and stress images. On the attenuation correction there is reversible defect at the inferior myocardium and septal wall in the more superior aspect of the chamber. The cardiac chamber size is normal. There are no wall motion abnormalities. The ejection fraction is calculated at 67% during stress. IMPRESSION: There is reversible defect involving the septum and inferior myocardium in the more superior portions of the chamber. ASSESSMENT: Intermediate risk Based on imaging criteria from ACC/AHA 2002 Guideline Update for the Management of Patients With Chronic Stable Angina Table 23. Noninvasive Risk Stratification. Reference. HIGH-RISK (GREATER THAN 3% ANNUAL MORTALITY RATE) - Severe resting left ventricular dysfunction (LVEF < 35%) - Severe exercise left ventricular dysfunction (exercise LVEF < 35%) - Stress-induced large perfusion defect (particularly if anterior) - Stress-induced multiple perfusion defects of moderate size - Large, fixed perfusion defect with LV dilation or increased lung uptake ( thallium-201) - Stress-induced moderate perfusion defect with LV dilation or increased lung uptake (thallium-201) INTERMEDIATE-RISK (1%-3% ANNUAL MORTALITY RATE) - Mild/moderate resting left ventricular dysfunction (LVEF = 35% to 49%) - Stress-induced moderate perfusion defect without LV dilation or increased lung intake (thallium-201) LOW-RISK (LESS THAN 1% ANNUAL MORTALITY RATE) - Normal or small myocardial perfusion defect at rest or with stress MTDD
--- NOTE | 2018-03-28 18:48 | CONS ---
CC: Dr. Frank; Dr. Lyly Bullard * FOLLOWUP CONSULTATION: DATE OF CONSULT: 03/28/18 HISTORY OF PRESENT ILLNESS: Please see Dr. Brian Aden's full consultation from 03/25/18 for this gentleman. The patient has a history of coronary artery disease. He has a history of stenting to his right coronary artery in September of 2017. The patient was admitted to the hospital with epigastric pain, did not rule in for a myocardial infarction. The patient underwent a chemical nuclear stress test today for his coronary artery disease. I personally reviewed the images of the scan and the raw images. The patient does have what appears to be a fixed defect to his inferior wall on the non-attenuated images. If you look at the attenuated images, there is no evidence of ischemia or infarction. There is normal LV function. There is no weakness to the inferior wall. The raw images do show a significant amount of gut intake both at the stress and the rest images overlying the inferior wall. IMPRESSION AND PLAN: Overall, I think the patient is at low to intermediate risk for recurrence of his coronary artery disease. At this point, my recommendation is to increase his antianginal medications and see him in followup soon after discharge. My recommendation, the patient increase his Norvasc to 5 mg a day. The patient will be on metoprolol XL 50 mg a day. The patient will continue on a aspirin and Brilinta as he was before. The patient has been intolerant of statin medications in the past. The patient will follow up with Dr. Bullard and Dr. Frank regarding his cholesterol management and the potential of starting Repatha. Time spent reviewing chart, nuclear images and talking with patient was 1 hour [id number]/[facility] #: [id number] [facility]
--- NOTE | 2018-03-29 09:10 | DS ---
CC: Dr. Frank; Dr. Aden; Dr. Amor; Dr. Armendariz; Dr. Bullard * DISCHARGE SUMMARY: DATE OF ADMISSION: 03/25/18 DATE OF DISCHARGE: 03/28/18 PRIMARY CARE PROVIDER: Dr. Frank. DISCHARGE DIAGNOSES: Chest pain, possible angina versus gastroesophageal reflux symptoms with intermediate risk cardiac stress test at discharge. CONSULTATIONS DURING THE HOSPITAL STAY: Dr. Aden from Cardiology as well as Dr. Amor from Cardiology. SECONDARY DIAGNOSES: 1. History of coronary artery disease, status post recent cardiac stenting in September of 2017. 2. Gastroesophageal reflux disease. 3. History of chronically elevated CPK level. 4. Hypertension. 5. Hyperlipidemia. 6. Benign prostatic hypertrophy. MEDICATIONS AT DISCHARGE: Include increase Norvasc to 5 mg p.o. daily. The remaining medications are unchanged and include: 1. Allopurinol 300 mg daily. 2. Aspirin 81 mg daily. 3. Zyrtec 10 mg daily. 4. Flonase nasal spray, 2 sprays both nostril daily. 5. Toprol-XL 50 mg daily. 6. Flomax 0.4 mg daily. 7. Acetaminophen on p.r.n. basis. 8. Omeprazole 20 mg daily. 9. Brilinta 90 mg b.i.d. LABORATORY DATA AND STUDIES PERFORMED DURING THE HOSPITAL STAY: Included: On 03/28/18, sodium of 136, potassium 4.1, chloride 103, carbon dioxide 27, BUN 17 , creatinine 0.92. Patient's CPK was markedly elevated during the hospital stay with level of 3425 at admission and down to the level of 2983 at discharge. Patient's liver function tests were unremarkable that obtained at admission. TSH was 2.03 obtained on 03/26/18. CBC on 03/25/18 showed white blood cell count of 5.3, hemoglobin of 13.5, hematocrit of 39, and platelets of 187. Nuclear medicine cardiac stress test documented on 03/28/18, impression: "On the nonattenuated correction images, there was a lack of uptake at the inferior myocardium on both rest and stress images. On the attenuation correction, there was reversible defect of the inferior myocardium and the septal wall in the more superior aspect of the chamber. The cardiac chamber size is normal. There are no wall motion abnormalities. Ejection fraction is calculated at 67% during stress. Impression: There is reversible defect involving the septal inferior myocardium in the more superior portion of the chamber that was assessed as intermediate risk." The patient's cholesterol profile showed triglycerides of 129, cholesterol total of 184, LDL of 123, and HDL of 35. HOSPITALIZATION COURSE: Mr. Yates is a 68-year-old male with history of coronary artery disease, status post recent stenting in the RCA in September 2017, who presented to the hospital complaining of substernal indigestion like burning when he was moving empty bottles from one box to the other. The patient was admitted to the hospital. His troponins continued to be negative. His CPK was relatively markedly elevated but it was somewhat correlating with his prior CPK levels that was in between 1000 to 2000 in the past year. The patient spent the week awaiting his cardiac stress test that was performed on , which showed reversible ischemia and intermediate probability. Dr. Amor saw the patient in consultation. It is possible that patient's chest pain is related to angina. Nevertheless due to patient's symptoms not recurring and that the patient biochemically did not generate any troponins, it was decided between the patient and Cardiology that the patient is going to be discharged home with short cardiology followup within the next week or two. The patient is recommended to not perform any strenuous exercise during that time until he is cleared by Cardiology. He will follow up with Dr. Amor in approximately 1 week. The patient is also recommended to follow up with Dr. Frank in the next 4 to 7 days. PHYSICAL EXAM AT THE TIME OF DISCHARGE: Blood pressure of 121/78, heart rate of 65 and regular, respiratory rate 16, oxygen saturation 98% on room air, and temperature 98.5. General: The patient is a very pleasant 68-year-old male who is in no acute distress. Alert, awake, and oriented x3. HEENT: Head atraumatic and normocephalic. Eyes: Pupils are equal and reactive to light and accommodation. Oropharynx clear. Mucosa moist. Neck: Supple. No JVD. No bruits bilaterally. Cardiovascular: Regular, rate, and rhythm. No murmur. Respiratory: Clear to auscultation bilaterally. Abdomen: Soft, nontender. Bowel sounds are present in all 4 quadrants. Extremities: There is no edema. Pulses +2 bilaterally. There is no clubbing or cyanosis. On neuro evaluation, speech clear. Cranial nerves II through XII grossly intact. Motor strength is 5/5 bilaterally. Please note that this is a short summary of the patient's hospitalization. Please refer to further medical records for details. TIME SPENT: Approximately 35 minutes was spent on the patient's discharge. [id number]/[facility] #: [id number] MTDD
== END 2018-03-28 16:00 | disposition home or self-care (01) | DRG 303 ==
LOC: ED 21:14 → MEDTELE 03-25 02:05 → OBSVTOIN 03-25 14:57
PROVIDERS: ADMIT Internal Medicine; ATTEND Internal Medicine
DX: I25.119 Atherosclerotic heart disease of native coronary artery with unspecified angina pectoris (principal); M62.82 Rhabdomyolysis; I11.9 Hypertensive heart disease without heart failure; K21.9 Gastro-esophageal reflux disease without esophagitis; E78.5 Hyperlipidemia, unspecified; N40.0 Benign prostatic hyperplasia without lower urinary tract symptoms; R07.9 Chest pain, unspecified; F12.90 Cannabis use, unspecified, uncomplicated; M10.9 Gout, unspecified; G47.30 Sleep apnea, unspecified; R94.4 Abnormal results of kidney function studies; Z95.5 Presence of coronary angioplasty implant and graft; Z79.01 Long term (current) use of anticoagulants; Z79.1 Long term (current) use of non-steroidal anti-inflammatories (NSAID); Z79.82 Long term (current) use of aspirin; Z79.899 Other long term (current) drug therapy; I25.2 Old myocardial infarction
CPT/HCPCS: 36415; 71045; 78452; 80048; 80053; 80061; 82550; 82553; 83605; 83735; 83880; 84443; 84484; 85025; 85610; 85730; 90686; 93005; 93017; 99284; A9270-GY; A9502; J1644; J2785

== ENCOUNTER 2018-04-12 09:46 | Inpatient (IN) | payer MEDICARE ==
[2018-04-12] MEDS ORDERED: Aspirin 81 mg CHEW TAB* 81 MG TAB.CHEW ONE (09:52)
[2018-04-12] MEDS ORDERED: Heparin for STEMI(*) 5,000 UNITS/ML 1 ML VIAL IV ONE (09:52)
[2018-04-12] MEDS ORDERED: Atropine SYRINGE* 0.1 MG/ML 10 ML SYRINGE (1 MG) IV PUSH ONE (10:03)
[2018-04-12] MEDS ORDERED: Aspirin 81 mg CHEW TAB* 81 MG TAB.CHEW PO ONE (10:03)
[2018-04-12] MEDS ORDERED: NS 0.9% 1000 ML* 1,000 ML IV ONE ×2 (10:03→10:04)
[2018-04-12 10:04] LABS: ABS Basophils 0.1 10^3/ul (0-0.2); ABS Eosinophils 0.1 10^3/ul (0-0.6); ABS Lymphocytes 1.2 10^3/ul (1.0-4.8); ABS Monocytes 0.4 10^3/ul (0-0.8); ABS Neutrophils 4.2 10^3/ul (1.5-7.7); ABS Nucleated RBC 0 10^3/ul; Eosinophil % 1.9 % (0-6); Hematocrit 42 % (42-52); Hemoglobin 13.9 g/dl (14.0-18.0); Lymphocyte % 19.5 % (25-47); Mean Corpuscular HGB Conc 34 g/dl (31-36); Mean Corpuscular Hemoglobin 32 pg (27-31); Mean Corpuscular Volume 94 fL (80-94); Mean Platelet Volume 7.2 um3 (7.4-10.4); Nucleated Red Blood Cells % 0.1; Platelet Count 236 10^3/ul (150-450); Red Blood Count 4.39 10^6/ul (4.00-5.40); Red Cell Distribution Width 13 % (10.5-15)
--- NOTE | 2018-04-12 10:14 | ED ---
HPI Cardiac - HPI Summary HPI Summary: Pt is a 68 y/o male who presents to the ED c/o CP s/p syncope. He was at [facility] when he suddenly felt weak and had LOC. As per friend, he was working on his roof outside lifting heavy things, doing things he shouldnt be doing. He c/o CP, SOB, and diaphoresis. He is accompanied by his granddaughter and friend, who drove him here because they didnt want to wait for the ambulance. Pt took NTG PLAYGROUND MONITOR but has not had ASA today. Pt smells of marijuana. He recently doubled his Amlodipine. Pt denies taking any Viagra. He was here on 03/25/18 for CP. PMHx CAD, HTN, HLD, non-STEMI, cardiac stents. STEMI called at 9:51. - History of Current Complaint Stated Complaint: CP Hx Obtained From: Patient, Family/Cloth Examiner - Friend Onset/Duration: Started Hours Ago - PLAYGROUND MONITOR, Still Present Timing: Constant Pain Intensity: 0 Pain Scale Used: 0-10 Numeric Character: Tightness Aggravating Factor(s): Exertion Associated Signs and Symptoms: Positive: Chest Pain, Weakness, Shortness of Breath, Diaphoresis - Additional Pertinent History Primary Care Physician: [id number] - Allergy/Home Medications Allergies/Adverse Reactions: Allergies Allergy/AdvReac Type Severity Reaction Status Date / Time Otrbxex-Lpf-Wgz Reductase Allergy See Comment Verified 04/12/18 13:12 Inhibitor ENVIRONMENTAL/SEASONAL Allergy ITCHY Uncoded 04/12/18 10:06 ALLERGIES WATERY EYES, CONGESTION PMH/Surg Hx/FS Hx/Imm Hx Endocrine/Hematology History: Reports: Hx Anemia Denies: Hx Diabetes Cardiovascular History: Reports: Hx Angioplasty, Hx Coronary Artery Disease - CARDIAC CATHERIZATION WITH 2 STENT INSERTION 2012, Hx Hypercholesterolemia, Hx Hypertension, 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 Respiratory History: Reports: Other Respiratory Problems/Disorders - DEVIATED SEPTUM, CONGESTED GI History: Denies: Other GI Disorders Comment Only: Hx Gastroesophageal Reflux Disease - DENIES BUT TAKING DAILY OMEPRAZOLE History: Reports: Hx Benign Prostatic Hyperplasia, Hx Kidney Stones, Other Problems/Disorders - BPH Denies: Hx Renal Disease Musculoskeletal History: Reports: Hx Arthritis - OSMANI HANDS Denies: Other Musculoskeletal History Sensory History: Reports: Hx Cataracts - BILATERAL, Hx Contacts or Glasses - reading glasses, not w/pt Denies: Hx Deafness, Hx Hearing Aid Opthamlomology History: Reports: Hx Cataracts - BILATERAL, Hx Contacts or Glasses - reading glasses, not w/pt Neurological History: Reports: Hx Headaches - OCCASIONAL, Other Neuro Impairments/Disorders - OCCASIONAL DIZZINESS WHEN BENDING - Surgical History Surgery Procedure, Year, and Place: 05/2013 [place] [facility] [place] URETEROSCOPY, LASER LITHOTRIPSY, [place] [facility] [place] [facility] [place] Anesthesia Reactions: No - Immunization History Immunizations Up to Date: Yes Infectious Disease History: No Infectious Disease History: Reports: Hx of Known/Suspected MRSA - 10/04/17 nasal swab Denies: Traveled Outside the [place] in Last 30 Days - Family History Known Family History: Negative: Cardiac Disease, Renal Disease - Social History Alcohol Use: None Hx Substance Use: Yes Substance Use Type: Reports: Marijuana Substance Use Comment - Amount & Last Used: EVERYDAY Hx Tobacco Use: No Smoking Status (MU): Never Smoked Tobacco Have You Smoked in the Last Year: No Review of Systems Positive: Skin Diaphoresis Positive: Chest Pain Positive: Shortness Of Breath Positive: Weakness, Syncope All Other Systems Reviewed And Are Negative: Yes Physical Exam - Summary Physical Exam Summary: Appearance: Well appearing, no pain distress Skin: cool, clammy, pale Head/face: normal Eyes: EOMI, ORALIA ENT: mucous membranes moist Neck: supple, non-tender Respiratory: CTA, breath sounds present Cardiovascular: bradycardic with regular rhythm, pulses symmetrical, no LE edema Abdomen: non-tender, soft, non-distended, no pulsatile abdominal mass Bowel Sounds: present Musculoskeletal: normal, strength/ROM intact Neuro: normal, sensory motor intact, A&Ox3 Triage Information Reviewed: Yes Vital Signs On Initial Exam: Initial Vitals Temp Pulse Resp BP Pulse Ox 96.3 F 40 12 57/42 96 04/12/18 09:56 04/12/18 09:56 04/12/18 09:56 04/12/18 09:56 04/12/18 09:56 Vital Signs Reviewed: Yes Diagnostics - Vital Signs Vital Signs Temp Pulse Resp BP Pulse Ox 04/12/18 09:56 96.3 F 40 12 57/42 96 - Laboratory Lab Results: Lab Results 04/12/18 Range/Units 09:52 WBC 6.0 (3.5-10.8) 10^3/ul RBC 4.39 (4.00-5.40) 10^6/ul Hgb 13.9 L (14.0-18.0) g/dl Hct 42 (42-52) % MCV 94 (80-94) fL MCH 32 H (27-31) pg MCHC 34 (31-36) g/dl RDW 13 (10.5-15) % Plt Count 236 (150-450) 10^3/ul MPV 7.2 L (7.4-10.4) um3 Neut % (Auto) 70.3 (38-83) % Lymph % (Auto) 19.5 L (25-47) % Larue % (Auto) 7.4 H (0-7) % Eos % (Auto) 1.9 (0-6) % Baso % (Auto) 0.9 (0-2) % Absolute Neuts (auto) 4.2 (1.5-7.7) 10^3/ul Absolute Lymphs (auto) 1.2 (1.0-4.8) 10^3/ul Absolute Monos (auto) 0.4 (0-0.8) 10^3/ul Absolute Eos (auto) 0.1 (0-0.6) 10^3/ul Absolute Basos (auto) 0.1 (0-0.2) 10^3/ul Absolute Nucleated RBC 0 10^3/ul Nucleated RBC % 0.1 Result Diagrams: 04/12/18 09:52 04/12/18 16:34 Lab Statement: Any lab studies that have been ordered have been reviewed, and results considered in the medical decision making process. - EKG 9:43 Cardiac Rate: Bradycardia - Junctional bradycardia 43 bpm EKG Rhythm: Sinus Rhythm EKG Comparison: No Significant Change - Same as compared to 03/25/18 Summary of EKG Findings: Inferior lateral ST depression 10:44 Cardiac Rate: NL - 72 bpm EKG Rhythm: Sinus Rhythm ST Segment: Normal Summary of EKG Findings: Nl axis, nl intervals Disposition - Course Course Of Treatment: Patient presents critically ill appearing with blood pressures in the 50s and heart rate in the 30s and 40s. Minor ST depressions on EKG. Junctional bradycardia. He responded quickly to IV atropine with rebounding of his blood pressure and heart rate. His symptoms improved significantly. A STEMI alert was called initially given the possibility of needing emergent pacemaker placement. The theatre professor felt that this was more appropriate for cardiology came and saw the patient at the bedside. Patient will be admitted to the ICU and was accepted by the ICU attending. He has remained stable here in the ER. - Differential Dx - Cardiopulmonary Differential Diagnoses - Cardiopulmonary: Other - Acute coronary syndrome, hypovolemic, hemorrhagic, ischemic, arrhythmia - Diagnoses Provider Diagnoses: Syncope, Hypotension, Junctional bradycardia, Acute coronary syndrome During the Visit The Following Alert/Code Occurred: STEMI - Called at 9:51 - Physician Notifications Discussed Care Of Patient With: Myles Richards Time Discussed With Above Provider: 09:56 Instructed by Provider To: Other - Dr. Richards came to the ED, and said to call regular cardiology. At 10:[address] Amor, who will come see pt in the ED. At 10:48 Dr. Huang accepts pt for admission. - Critical Care Time Critical Care Time: 30-74 min - CCT is exclusive of separate billable procedures Discharge - Sign-Out/Discharge Documenting (check all that apply): Patient Departure - Admit - Discharge Plan Condition: Guarded Disposition: ADMITTED TO [facility] - Billing Disposition and Condition Condition: GUARDED Disposition: Admitted to [facility] - Attestation Statements Document Initiated by Loraineibe: Yes Documenting Scribe: Rosalina Braun Provider For Whom Loraineibe is Documenting (Include Credential): Dominic Diaz MD Scribe Attestation: Rosalina Eldridge, scribed for Dominic Diaz MD on 04/12/18 at 1737. Scribe Documentation Reviewed: Yes Provider Attestation: The documentation as recorded by the Rosalina bland accurately reflects the service I personally performed and the decisions made by me, Dominic Diaz MD
[2018-04-12 10:26] LABS: EGFR Non-African American 57.6 (>60)
--- NOTE | 2018-04-12 10:32 | RAD ---
Indication: Chest pain. Single frontal view of the chest performed at 1025 hours was reviewed. Comparison is made with previous exam dated March 24, 2018. No mediastinal shift is noted. There is cardiomegaly noted. No alveolar consolidation is noted. No pneumothorax is noted. IMPRESSION: CARDIOMEGALY WITH NO PNEUMOTHORAX. NO ALVEOLAR CONSOLIDATION IS NOTED.
--- NOTE | 2018-04-12 12:16 | CONS ---
CC: Dr. Frank; Lyly Bullard MD CARDIOLOGY CONSULTATION REPORT: DATE OF CONSULT: 04/12/18 INDICATION FOR CONSULTATION: Chest pain, history of coronary artery disease. HISTORY OF PRESENT ILLNESS: The patient has a history of coronary artery disease, history of stenting to his right coronary artery many years ago, history of repeat stenting to his right coronary artery in September 2017. At that time, he had a stent to his right coronary artery. He has a known 90% stenosis to the second diagonal vessel off his LAD that is not amenable to intervention. The patient is somewhat of a vague historian. It was difficult to get a true story as to what happened this morning. 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 He said he saw some bright lights, he said he just felt short of breath, he may have had some chest pain, he is not exactly sure. He just felt completely exhausted. He said he went down and sat on a chair. He decided to take a nitroglycerin. After he took a nitroglycerin, he went to stand up and collapsed. He was carried from near his chair to the car and was transported to the emergency room. The patient arrived in the emergency room. His initial EKG showed junctional bradycardia at 45 beats [address] minute with ST segment depressions but no evidence of ST segment elevation. He was given half an amp of atropine and his heart rate came up. Currently the patient is pain free, lying in bed. He denies any chest pain or shortness of breath. The patient states that for the past month or so any time he exerted himself, he feels strange. Again, he does not describe any true chest pain. He just describes that he is unable to do his usual activities and he feels fatigued. PAST MEDICAL HISTORY: 1. Gastroesophageal reflux disease. 2. Chronically elevated CPK levels. 3. Hypertension. 4. BPH. OUTPATIENT MEDICATIONS: 1. Flonase spray. 2. Lopressor 50 mg a day. 3. Allopurinol 300 mg a day. 4. Norvasc 2.5 mg a day. 5. Flomax 0.4 mg a day. 6. Aspirin 81 mg a day. 7. Brilinta 90 mg b.i.d. 8. Tylenol as needed. ALLERGIES: No known drug allergies. FAMILY HISTORY: Not obtained. 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 He denies tobacco use. He denies alcohol use. The patient is active. REVIEW OF SYSTEMS: Negative for fevers or chills. Negative for changes in bowel or bladder habits. Negative in changes in weight. Other 12-point review is unremarkable. PHYSICAL EXAM: Vital Signs: Height is 5 feet and 6 inches, weight is 151 pounds. Heart rate is 71, blood pressure 112/65, respiratory rate is 16, oxygen saturation 94% on 2 L. HEENT: Sclerae anicteric. Oropharynx is pink without erythema. Carotids are 2+ without bruits. JVD is normal. Thyroid is normal. Cardiac Exam: S1, S2 without any murmurs, rubs or gallops. Lungs: Clear to auscultation bilaterally. There is no dullness to percussion. Abdomen is soft , nontender and nondistended with normoactive bowel sounds. Extremities show no edema. He has 2+ pulses throughout. The patient is awake, alert and oriented. He moves all 4 extremities equally. DIAGNOSTIC STUDIES/LAB DATA: CBC within normal limits. Chemistry is within normal limits. Potassium is 3.3. BNP 40. Initial troponin 0.00. AST and ALT are normal. EKG now shows normal sinus rhythm with ST segment depressions in V2, V3 and aVL which is similar to previous EKGs. IMPRESSION: This is a 68-year-old gentleman with a known history of coronary artery disease, history of stenting to his right coronary artery in September who comes in today for an episode of fatigue and syncope. Again, his episode of syncope occurred after he had taken a nitroglycerin and tried to get up and walk. The patient again has difficulty giving a coherent story as to what happened this morning. PLAN: For now, my recommendation is the patient will be observed overnight. The patient's troponins will be run in serial. His medications will remain the same. If his troponins are negative, I will schedule an exercise nuclear stress test for tomorrow. [id number]/[facility] #: [id number] [facility]
[2018-04-12] MEDS ORDERED: Al Hydrox/Mg Hydrox/Simet LIQ* 30 ML UDC PO PRN (13:17)
[2018-04-12] MEDS ORDERED: Ondansetron INJ* 2 MG/ML VIAL IV PRN (13:17)
[2018-04-12] MEDS ORDERED: Potassium Chlor TAB* 20 MEQ TAB.ER PO ONE ×4 (13:22→18:00)
[2018-04-12] MEDS ORDERED: Fluticasone NASAL SPRAY 50MCG* 16 gm SPRAY BTL BOTH NARES PRN (13:22)
--- NOTE | 2018-04-12 13:47 | PN ---
Hospitalist Progress Note Date of Service: 04/12/18 HOSPITALIST ADDENDUM Case reviewed and d/w Radha Hebert NP. 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 Had no CP but decide to take NTG. Brought in by family after a syncopal episode. EKG did not shows STEMI. Labs were reviewed. D/w Cardiology - plan is for exercise NM stress test in AM. This episode was multifactorial in the setting of probable dehydration (working outside, mild creatinine elevation), NTG use with hypotension and syncope, but he does have a h/o CAD and may have unstable angina. Will hydrate, replete electrolytes in preparation for ST in AM. Agree with current management.
[2018-04-12] MEDS ORDERED: NS 0.9% 1000 ML* 1,000 ML IV SCH (14:00)
[2018-04-12] MEDS: Heparin VIAL(*) 5000 UNITS/ML VIAL (FIVE THOUSAND) SUBCUT SCH ×2 (15:23→21:19)
[2018-04-12 17:00] LABS: EGFR Non-African American 74.7 (>60)
--- NOTE | 2018-04-12 17:02 | HP ---
AMENDED REPORT NOW INCLUDES DESIGNATED COSIGNER CC: Ildefonso Frank MD; Lyly Bullard MD; aKde Amor MD * HISTORY AND PHYSICAL: DATE OF ADMISSION: 04/12/18 PRIMARY CARE PROVIDER: Ildeofnso Frank MD HAND BINDERY ASSEMBLY WORKER: Lyly Bullard MD ATTENDING PHYSICIAN: Nafisa Kiser MD * (dictated by Castro Hebert NP). CHIEF COMPLAINT: Syncope. HISTORY OF PRESENT ILLNESS: Mr. Yates is a 68-year-old male with past medical history of CAD, hypertension, hyperlipidemia, GERD and BPH, who presented to the emergency room on 04/12/18 with syncope. I will note that Mr. 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 He reported feeling "not right." He decided to take a nitro, though he denied having any actual chest pain. He does not remember much after taking the nitro except that he remembers someone lying him on the ground to load him into a car and then he remembers waking up in the emergency room. His family was not present during my exam, though from the ED notes, it sounds as though they found him pale and diaphoretic and chose to bring him to the emergency room in a private vehicle as they did not want to wait for EMS to arrive. I will note that he was hospitalized for chest pain from 03/25/18 to and at that point had an intermediate risk stress test. He was advised to follow up with Cardiology after discharge from the hospital, although it does not appear that he followed up with them. The patient reports that this was his first time taking nitro. He has previously had a dose of nitro while in the hospital. He otherwise has been feeling in his normal state of health since his discharge back on 03/28/18, though he reports as though he has been feeling weak the last few months and becomes short of breath with exertion. When he arrived to the emergency room, there was concern for an LA. The patient had an EKG showing bradycardia and a junctional rhythm. He was given 1 dose of atropine. The patient was seen in the emergency room by Dr. Amor, who felt as though the patient should be observed overnight and have an exercise nuclear stress test in the morning if troponins are negative. PAST MEDICAL HISTORY: 1. CAD with cardiac catheterization x2, most recently in September 2017. 2. Hyperlipidemia. 3. Hypertension. 4. GERD. 5. BPH. 6. Gout. PAST SURGICAL HISTORY: 1. Inguinal hernia repair. 2. Nasal septoplasty. 3. Bilateral cataract extractions. HOME MEDICATIONS: 1. Aspirin 81 mg p.o. daily. 2. Allopurinol 300 mg p.o. daily. 3. Acetaminophen 650 mg p.o. q.4 hours p.r.n. 4. Metoprolol 50 mg p.o. daily. 5. Fluticasone 2 sprays both nares daily p.r.n. 6. Fluconazole cream 1 application topical b.i.d. 7. Cetirizine 10 mg p.o. daily. 8. Amlodipine 5 mg p.o. daily. 9. Brilinta 90 mg p.o. b.i.d. 10. Tamsulosin 0.4 mg p.o. daily. 11. Omeprazole 20 mg p.o. daily. ALLERGIES: STATINS (myalgias and chronically elevated CPK). FAMILY HISTORY: Mother at 34 due to uterine cancer. Father at 62 due to an aneurysm. He denies any family history of coronary artery disease, diabetes, or other cancers. SOCIAL HISTORY: The patient denies any smoking history. He denies any alcohol use. He reports smoking marijuana once daily. 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 He lives with his partner, Dottie. The patient's sons, Parrish and Zak, will be his surrogate decision makers in the event he is unable to make his own decisions. REVIEW OF SYSTEMS: An 11-point review of systems was performed and all the pertinent positive and negative findings are in the HPI. All other systems are negative. PHYSICAL EXAMINATION GENERAL: Mr. Yates is a well-developed, well-nourished white male, sitting in bed, in no acute distress. He appears his stated age. VITAL SIGNS: Temp 98, heart rate 61, respiratory rate 18, oxygen saturation 98 % on room air, blood pressure 121/67. HEENT: Head is normocephalic and atraumatic. Visual wisdom are grossly intact. Pupils are equal, round, and reactive to light and accommodation. Extraocular movements intact. Oral mucous membranes are moist and without lesions. NECK: Full range of motion. Thyroid not palpable. Trachea midline. No lymphadenopathy. RESPIRATORY: Symmetrical chest expansion. No chest wall deformities. Lungs are clear to auscultation throughout. No rhonchi, wheezes, or rales. CARDIOVASCULAR: Regular rate and rhythm. S1, S2 present. No murmurs, rubs, or gallops. No JVD. ABDOMEN: Soft, nontender to palpation. Bowel sounds normoactive throughout. No bruits appreciated. No hepatosplenomegaly. EXTREMITIES: Skin warm and smooth bilaterally. No edema. No clubbing or cyanosis. Pedal pulses 2+ bilaterally. MUSCULOSKELETAL: Full range motion. No pain or deformities. NEURO: Awake, alert, and oriented x4. Cranial nerves II through XII are grossly intact. Moves all extremities. SKIN: Grossly intact without lesions. DIAGNOSTIC STUDIES/LAB DATA: WBC 6.0, RBC 4.39, hemoglobin 13.9, hematocrit 42 , platelets 236,000. INR 1.00, PTT 23.3. Sodium 140, potassium 3.3, chloride 104, carbon dioxide 23, BUN 15, creatinine 1.24, glucose 175, lactic acid 3.6. First troponin 0.00, second troponin 0.00. BNP 40. Initial EKG shows junctional rhythm, bradycardic with a rate of 43, ST depression in V3, V4, V5, V6. Second EKG in the ER shows normal sinus rhythm with a rate of 72. Chest x-ray shows cardiomegaly with no pneumothorax, no alveolar consolidations. ASSESSMENT AND PLAN: Mr. Yates is a 68-year-old male with past medical history of coronary artery disease, hypertension, hyperlipidemia, gastroesophageal reflux disease, benign prostatic hypertrophy and gout, who presented to the emergency room today after a syncopal episode and was found to be pale, diaphoretic and bradycardic. The patient will be admitted observation for: 1. Rule out acute coronary syndrome. The patient was seen in the emergency room by Dr. Amor, who recommends overnight observation, serial troponins, and as long as his troponins are negative, an exercise nuclear stress test in the morning. The patient has had 2 negative troponins. A third troponin will be checked at 1600. I have ordered a repeat EKG for the morning. I will continue the patient's amlodipine, aspirin, and Brilinta. 2. Syncope. It sounds as though the patient may have been hypotensive, which was exacerbated by nitroglycerin. We will check orthostatic vital signs. I will give him IV fluids for hydration and we will monitor him on telemetry. I will hold his metoprolol for possible stress test in the morning. 3. Acute kidney injury. The patient's creatinine in the emergency room was 1.24, which is elevated from his baseline of 0.8. He has received fluids in the emergency room. I will give him 1 additional bag of fluids and I will recheck a BMP at 1600. 4. Elevated lactic. The patient's lactic is 3.6. I do not think that this represents an infectious process, but rather related to the syncopal episodes. He has been given 2 L of normal saline in the emergency room. We will recheck a lactic. 5. Coronary artery disease. I will continue normal medications as noted above. 6. Hypertension. He has had some mild hypotension in the emergency room. I will place hold parameters on his amlodipine. 7. Hyperlipidemia. The patient has experienced myalgias with multiple statins and has an elevated CPK at baseline. Based on notes from Cardiology, it appears as though it has been recommended that he start a PCSK9 inhibitor, though he reports he is unable to afford this as it would be approximately 400 dollars a month. I have placed a social work consult. Cardiology recommends diet control with a Mediterranean diet. 8. Gastroesophageal reflux disease. Continue omeprazole. 9. Benign prostatic hypertrophy. Continue tamsulosin. 10. History of gout. Continue allopurinol. 11. Fluids, electrolytes, and nutrition: I will give 1 L saline as noted above. I will give him 80 mEq of potassium to correct his potassium to 4.0. I have ordered a heart-healthy, no caffeine diet, and n.p.o. after midnight. 12. Code status: The patient will be a full code. 13. DVT prophylaxis: According to the DVT Risk Assessment, the patient scores a 2 putting him at moderate risk. I have placed him on heparin. TIME SPENT: Approximately 60 minutes were spent on this admission, greater than half of that time spent with the patient obtaining my history, performing my physical exam, and reviewing my plan of care. This case has been reviewed with my attending, Dr. Kiser, who is in agreement with the plan of care. CASTRO HEBERT, SHOPPER'S AIDE [id number]/[facility] #: [id number] [facility]
[2018-04-12] MEDS: Ticagrelor* 90 MG TAB PO SCH (20:00)
[2018-04-13 05:43] LABS: ABS Basophils 0 10^3/ul (0-0.2); ABS Eosinophils 0.2 10^3/ul (0-0.6); ABS Lymphocytes 1.1 10^3/ul (1.0-4.8); ABS Monocytes 0.4 10^3/ul (0-0.8); ABS Neutrophils 3.3 10^3/ul (1.5-7.7); ABS Nucleated RBC 0 10^3/ul; Eosinophil % 3.3 % (0-6); Hematocrit 37 % (42-52); Hemoglobin 12.6 g/dl (14.0-18.0); Lymphocyte % 22.7 % (25-47); Mean Corpuscular HGB Conc 34 g/dl (31-36); Mean Corpuscular Hemoglobin 32 pg (27-31); Mean Corpuscular Volume 94 fL (80-94); Mean Platelet Volume 7.4 um3 (7.4-10.4); Nucleated Red Blood Cells % 0; Platelet Count 172 10^3/ul (150-450); Red Blood Count 3.93 10^6/ul (4.00-5.40); Red Cell Distribution Width 13 % (10.5-15)
[2018-04-13] MEDS: Heparin VIAL(*) 5000 UNITS/ML VIAL (FIVE THOUSAND) SUBCUT SCH ×3 (06:04→21:21)
[2018-04-13] MEDS: Omeprazole CAP* 20 MG PO SCH (06:04)
[2018-04-13 06:05] LABS: EGFR Non-African American 85.6 (>60)
[2018-04-13] MEDS ORDERED: amLODIPine TAB* 5 MG PO SCH (09:00)
[2018-04-13] MEDS: Allopurinol TAB* 300 MG PO SCH (11:01)
[2018-04-13] MEDS: amLODIPine TAB* 5 MG PO SCH (11:02)
[2018-04-13] MEDS: Ticagrelor* 90 MG TAB PO SCH ×2 (11:02→21:20)
[2018-04-13] MEDS: Aspirin EC TAB* 81 MG TAB.EC PO SCH (11:02)
[2018-04-13] MEDS: Tamsulosin CAP* 0.4 MG PO SCH (11:02)
--- NOTE | 2018-04-13 13:25 | ECHO ---
Patient: [facility] Rec#: [id number] : 1950 Date: 04/13/2018 Age: 68y Height: 168 cm / 66.1 in Weight: 69 kg / 152.1 lbs Sex: M BSA: 1.78 Room#: 431 Admit Date#: 04/12/2018 Type: Inpatient Referring: Radha Hebert Reading: Keo Paz MD Bending Shed Worker: Sole Quintanilla,RDCS,RDMS CC: Ildefonso Frank MD Transthoracic Echocardiogram Indication: Syncope BP: 108/67 HR: 57 Rhythm: Bradycardia Findings History: CAD, PCI, HTN, HLD Technical Comments: The study quality is good. Left Ventricle: The left ventricular chamber size is normal. Mild concentric left ventricular hypertrophy is observed. Global left ventricular wall motion and contractility are within normal limits. The estimated ejection fraction is 55-60%. There is no consistent Doppler evidence of clinically significant diastolic dysfunction. Left Atrium: The left atrium is moderate to severely dilated. Right Ventricle: The right ventricular chamber size and systolic function are within normal limits. The right ventricle wall thickness is mildly increased. Right Atrium: The right atrium is mildly dilated. Aortic Valve: The aortic valve is trileaflet. The aortic valve leaflets are moderately thickened. There is a trace of aortic regurgitation. There is no evidence of aortic stenosis. Mitral Valve: The mitral valve leaflets are mildly thickened. There is mild to moderate mitral regurgitation. There is no evidence of mitral stenosis. Tricuspid Valve: The tricuspid valve leaflets are mildly thickened. There is mild tricuspid regurgitation. There is evidence of mild pulmonary hypertension. Pulmonic Valve: The pulmonic valve appears normal. There is no evidence of pulmonic regurgitation. Pericardium: There is no significant pericardial effusion. Aorta: There is borderline dilatation of the ascending aorta. There is no dilatation of the aortic arch. The aortic root is normal in size. Pulmonary Artery: The main pulmonary artery appears normal. Venous: The inferior vena cava appears normal in size. There is a greater than 50% respiratory change in the inferior vena cava dimension. Summary: There was not any prior study for comparison. Conclusions The left ventricular chamber size is normal. Mild concentric left ventricular hypertrophy is observed. The estimated ejection fraction is 55-60%. There is no consistent Doppler evidence of clinically significant diastolic dysfunction. The left atrium is moderate to severely dilated. The right ventricle wall thickness is mildly increased. The right atrium is mildly dilated. There is a trace of aortic regurgitation. There is mild to moderate mitral regurgitation. There is mild tricuspid regurgitation. There is evidence of mild pulmonary hypertension. There is borderline dilatation of the ascending aorta. Measurements Name Value Normal Range RVIDd (AP) 2D 3.4 cm (0.9 - 2.6) RVDdMajor (2D) 2.2 cm (2.2 - 4.4) RAd ISD 4CH 5.6 cm (3.4 - 4.9) RA (A4C)W 3.4 cm (2.9 - 4.6) IVSd (2D) 1.2 cm (0.6 - 1) LVPWd (2D) 1.1 cm (0.6 - 1) LVIDd (2D) 4.7 cm (3.6 - 5.4) LVIDs (2D) 3.1 cm - LV FS (2D) 34 % (25 - 45) Aortic Annulus 2.4 cm (1.4 - 2.6) Ao root diameter (2D) 3.5 cm (2.1 - 3.5) Ascending Ao 3.5 cm (2.1 - 3.4) Aortic arch 2.7 cm (1.8 - 3.4) LA dimension (AP) 2D 4.3 cm (2.3 - 3.8) LAd ISD 4CH 6.3 cm (2.9 - 5.3) LA ISD 4CH W 5.3 cm (2.5 - 4.5) Name Value Normal Range LA ESV BP (A/L) index 57 ml/m2 - Name Value Normal Range MV E-wave Vmax 0.8 m/sec - MV deceleration time 195 msec - MV A-wave Vmax 0.7 m/sec - MV E:A ratio 1.1 ratio - P. vein S-wave Vmax 0.6 m/sec - P. vein D-wave Vmax 0.6 m/sec - P. vein S:D Vmax ratio 0.9 ratio - P. vein A-wave duration 140 msec - LV septal e' Vmax 0.09 m/sec - LV lateral e' Vmax 0.12 m/sec - LV E:e' septal ratio 9 ratio - LV E:e' lateral ratio 7 ratio - Name Value Normal Range AV Vmax 1.3 m/sec - AV VTI 29 cm - AV peak gradient 7 mmHg - AV mean gradient 4 mmHg - LVOT diameter 2.3 cm - LVOT Vmax 1.3 m/sec - LVOT VTI 26 cm - LVOT peak gradient 7 mmHg - LVOT mean gradient 3 mmHg - GABE (continuity Vmax) 4.2 cm2 - GABE (continuity VTI) 3.7 cm2 - Name Value Normal Range MR Vmax 5.3 m/sec - MR VTI 193 cm - MR ERO 0.6 cm2 - MR PISA radius 0.3 cm - MR alias Vmax 31 cm/sec - Name Value Normal Range TR Vmax 2.9 m/sec - TR peak gradient 34 mmHg - RAP 8 mmHg - RVSP 42 mmHg - IVC diameter 1.7 cm - Name Value Normal Range PV Vmax 0.7 m/sec - PV peak gradient 2 mmHg -
--- NOTE | 2018-04-13 13:27 | RAD ---
Edited for charges. Indication: Chest pain, syncope chest pain, syncope. Myocardial perfusion scan was performed utilizing 1 day protocol. Rest myocardial perfusion was performed after intravenous injection of 10.2 mCi of technetium 99m tetrofosmin. Treadmill stress study was performed and the maximum heart rate achieved was 75% of the maximum predicted value. 26.6 mCi of technetium 99m tetrofosmin was injected for the stress portion of the study. There is a small to moderate-sized area of defect in the inferior wall extending into the septum near the base of the heart. This area appears to reverse on the rest images. There is likely superimposed inferior wall attenuation from diaphragm. There is likely a small amount of inferior wall reversible change is noted. The ejection fraction at stress is 66%. Evaluation of wall motion demonstrates no focal wall motion abnormality. IMPRESSION: Small areas of reversible change in the inferior wall close to the septum at the base of the heart and in the inferior wall close to the base of the heart. ASSESSMENT: Low risk Based on imaging criteria from ACC/AHA 2002 Guideline Update for the Management of Patients With Chronic Stable Angina Table 23. Noninvasive Risk Stratification. MTDD
--- NOTE | 2018-04-13 17:28 | PN ---
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 He syncopized after took nitro. He often gets chest pressure radiating to his throat during sexual intercourse or when he walks up a hill. Has had chronically elevated CK levels, states has been off stating for about 1 year. Still elevated in Mar in 3000s. Statins do exacerbate his muscle pains. He had chest pain and ST depressions during his exercise stress test. Nuclear stress with small area of inferior reversible ischemia (read as low risk) in similar distribution 2 weeks ago. ECHO was w/o wma. [facility] planned for tomorrow. Objective Active Medications: Acetaminophen (Tylenol Tab*) 650 mg PO Q4H PRN PRN Reason: FEVER/PAIN Al Hydrox/Mg Hydrox/Simethicone (Maalox Plus*) 30 ml PO Q6H PRN PRN Reason: INDIGESTION Allopurinol (Zyloprim Tab*) 300 mg PO DAILY [facility] Last Admin: 04/13/18 11:01 Dose: 300 mg Amlodipine Besylate (Norvasc Tab*) 5 mg PO DAILY [facility] Last Admin: 04/13/18 11:02 Dose: 5 mg Aspirin (Aspirin Ec Tab*) 81 mg PO DAILY [facility] Last Admin: 04/13/18 11:02 Dose: 81 mg Fluticasone Propionate (Flonase Nasal [place] 50mcg*) 2 spray BOTH NARES DAILY PRN PRN Reason: allergies Heparin Sodium (Porcine) (Heparin Vial(*)) 5,000 units SUBCUT Q8HR [facility] Stop: 04/13/18 23:59 Last Admin: 04/13/18 14:48 Dose: 5,000 units Sodium Chloride (Ns 0.9% 1000 Ml*) 1,000 mls @ 100 mls/hr IV .per rate [facility] Omeprazole (Prilosec Cap*) 20 mg PO 0600 [facility] Last Admin: 04/13/18 06:04 Dose: 20 mg Ondansetron HCl (Zofran Inj*) 4 mg IV Q4H PRN PRN Reason: NAUSEA/VOMITING Tamsulosin HCl (Flomax Cap*) 0.4 mg PO DAILY [facility] Last Admin: 04/13/18 11:02 Dose: 0.4 mg Ticagrelor (Brilinta*) 90 mg PO BID [facility] Last Admin: 04/13/18 11:02 Dose: 90 mg Vital Signs - 8 hr 04/13/18 04/13/18 11:23 16:19 Temperature 99.8 F 100.2 F Pulse Rate 60 70 Respiratory 16 16 Rate Blood Pressure 136/78 130/77 (mmHg) O2 Sat by Pulse 97 95 Oximetry Oxygen Devices in Use Now: None Appearance: NAD. Eyes: No Scleral Icterus Ears/Nose/Mouth/Throat: NL Teeth, Lips, Gums Neck: NL Appearance and Movements; NL JVP Respiratory: Symmetrical Chest Expansion and Respiratory Effort, Clear to Auscultation Cardiovascular: NL Sounds; No Murmurs; No JVD, RRR Abdominal: NL Sounds; No Tenderness; No Distention Extremities: No Edema Skin: No Rash or Ulcers Neurological: Alert and Oriented x 3, NL Sensation, NL Muscle Strength and Tone Nutrition: Taking PO's Result Diagrams: 04/13/18 05:22 04/13/18 05:22 Additional Lab and Data: Laboratory Results - last 24 hr 04/13/18 04/13/18 05:22 05:22 WBC 5.0 RBC 3.93 L Hgb 12.6 L Hct 37 L MCV 94 MCH 32 H MCHC 34 RDW 13 Plt Count 172 MPV 7.4 Neut % (Auto) 66.1 Lymph % (Auto) 22.7 L [place] % (Auto) 7.5 H Eos % (Auto) 3.3 Baso % (Auto) 0.4 Absolute Neuts (auto) 3.3 Absolute Lymphs (auto) 1.1 Absolute Monos (auto) 0.4 Absolute Eos (auto) 0.2 Absolute Basos (auto) 0 Absolute Nucleated RBC 0 Nucleated RBC % 0 Sodium 139 Potassium 4.0 Chloride 109 Carbon Dioxide 24 Anion Gap 6 BUN 14 Creatinine 0.88 Est GFR ( Amer) 103.6 Est GFR (Non-Af Amer) 85.6 BUN/Creatinine Ratio 15.9 Glucose 107 H Calcium 8.8 Triglycerides 116 Cholesterol 184 LDL Cholesterol 126 HDL Cholesterol 34.4 Assess/Plan/Problems-Billing Assessment: 68 yo male PMH CAD s/p RCA MARCIA stent twice (most recently September 2017, with residual 2nd Diag 90% stenosis), recent ACS rule out, p/w syncope after nitro use in setting of anginal chest pain. ST depressions and junctional rhythm. Trop negative. Chest pain and more ST depression during exercise stress test. Planned [facility] 04/14. Chronic CK elevation and intolerant of statins. - Patient Problems (1) Syncope and collapse Current Visit: Yes Status: Acute Code(s): R55 - SYNCOPE AND COLLAPSE SNOMED Code(s): 920753038 Comment: In setting on nitro use and angina. junctional sai on initial EKGs. pursuing [facility] 04/14 (2) Chest pain Current Visit: No Status: Acute Code(s): R07.9 - CHEST PAIN, UNSPECIFIED SNOMED Code(s): 48382227 Comment: Troponins all negative. However chest pressure is very exertionaly with up hill walking and intercourse. ST depressions initially and with exercise stress test. Needs [facility] 04/14 Appreciate cardiology and interventional cardiology recs. Has known 2nd diagonal stenosis and not able to tolerate statins in past. claims never missed any doses of BID brilinta or aspirin. restarting his beta stanley. (3) Elevated CK Current Visit: No Status: Acute Code(s): R74.8 - ABNORMAL LEVELS OF OTHER SERUM ENZYMES SNOMED Code(s): 122197581 Comment: chronic elevation, even when not on statin. Per Dr. 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 aldolase, ESR, CRP all wnl previously. Dr. Bullard has been trying to get patient PSCK-9 Inhibitors but currently too expensive for his budget. (4) Full code status Current Visit: No Status: Acute Code(s): Z78.9 - OTHER SPECIFIED HEALTH STATUS SNOMED Code(s): 603888965 (5) Gout Current Visit: No Status: Chronic Code(s): M10.9 - GOUT, UNSPECIFIED SNOMED Code(s): 36043526 Comment: - Continue allopurinol (6) HLD (hyperlipidemia) Current Visit: No Status: Chronic Code(s): E78.5 - HYPERLIPIDEMIA, UNSPECIFIED SNOMED Code(s): 67524865 Comment: - claims severe statin intolerance. (7) HTN (hypertension) Current Visit: No Status: Chronic Code(s): I10 - ESSENTIAL (PRIMARY) HYPERTENSION SNOMED Code(s): 35196343 Comment: - SBP 110-150's - Continue amlodipine and metoprolol (8) History of coronary artery disease Current Visit: No Status: Chronic Code(s): Z86.79 - PERSONAL HISTORY OF OTHER DISEASES OF THE CIRCULATORY SYSTEM SNOMED Code(s): 780894791 Comment: - S/P 2 cardiac stents in 2012 and one September 2017 - Continue ASA and metoprolol and brilinta Status and Disposition: changed to medicine inpatient. Attending: David Lloyd
[2018-04-13] MEDS: Acetaminophen TAB* 325 MG PO PRN (21:20)
[2018-04-14] MEDS: Omeprazole CAP* 20 MG PO SCH (05:30)
[2018-04-14] MEDS ORDERED: NS 0.9% 1000 ML* 1,000 ML IV SCH (07:00)
[2018-04-14] MEDS: Aspirin EC TAB* 81 MG TAB.EC PO SCH (08:34)
[2018-04-14] MEDS: Metoprolol Tartrate TAB* 50 mg PO SCH (08:34)
[2018-04-14] MEDS: amLODIPine TAB* 5 MG PO SCH (08:34)
[2018-04-14] MEDS: Allopurinol TAB* 300 MG PO SCH (08:34)
[2018-04-14] MEDS: Tamsulosin CAP* 0.4 MG PO SCH (08:34)
[2018-04-14] MEDS: Ticagrelor* 90 MG TAB PO SCH ×3 (08:42→20:25)
[2018-04-14] MEDS ORDERED: Heparin 2 UNITS/ML IVPREMIX* 3,000 ML IV ONE (09:20)
[2018-04-14] MEDS ORDERED: fentaNYL* 50 MCG/ML 2 ML VIAL (100 MCG VIAL) ONE (09:20)
[2018-04-14] MEDS ORDERED: Midazolam* 1 MG/ML 10 ML VIAL (10 MG) ONE (09:20)
[2018-04-14] MEDS ORDERED: Lidocaine 1% INJ* 10 MG/ML 30 ML SDV ONE (09:21)
[2018-04-14] MEDS ORDERED: Iohexol 350 (CONTRAST) 200 ML MDV IV ONE ×2 (09:21)
[2018-04-14] MEDS ORDERED: nitroGLYCERIN DRIP* 25,000 MCG/250 ML BTL ONE (09:55)
[2018-04-14] MEDS ORDERED: Heparin(*) 1000 UNIT/ML 10 ML VIAL CATH LAB IV ONE (09:57)
[2018-04-14] MEDS ORDERED: Nitroglycerin TAB 0.4 MG* 0.4 MG TAB SL PRN (10:50)
[2018-04-14] MEDS ORDERED: NS 0.9% 1000 ML* 400 ML IV SCH (11:00)
--- NOTE | 2018-04-14 14:13 | PN ---
Subjective Date of Service: 04/14/18 Interval History: RCA stent was placed. symptom free. no hematoma in right groin. Objective Active Medications: Acetaminophen (Tylenol Tab*) 650 mg PO Q4H PRN PRN Reason: FEVER/PAIN Last Admin: 04/13/18 21:20 Dose: 650 mg Al Hydrox/Mg Hydrox/Simethicone (Maalox Plus*) 30 ml PO Q6H PRN PRN Reason: INDIGESTION Allopurinol (Zyloprim Tab*) 300 mg PO DAILY [facility] Last Admin: 04/14/18 08:34 Dose: 300 mg Amlodipine Besylate (Norvasc Tab*) 5 mg PO DAILY [facility] Last Admin: 04/14/18 08:34 Dose: 5 mg Aspirin (Aspirin Ec Tab*) 81 mg PO DAILY [facility] Last Admin: 04/14/18 08:34 Dose: 81 mg Fluticasone Propionate (Flonase Nasal [place] 50mcg*) 2 spray BOTH NARES DAILY PRN PRN Reason: allergies Sodium Chloride (Ns 0.9% 1000 Ml*) 400 mls @ 100 mls/hr IV .100 ML/HR FOR 4 HRS [facility] Stop: 04/14/18 14:59 Metoprolol Tartrate (Lopressor Tab*) 50 mg PO DAILY [facility] Last Admin: 04/14/18 08:34 Dose: 50 mg Nitroglycerin (Nitroglycerin Tab 0.4 Mg*) 0.4 mg SL Q5M PRN PRN Reason: ANGINA Omeprazole (Prilosec Cap*) 20 mg PO 0600 [facility] Last Admin: 04/14/18 05:30 Dose: 20 mg Ondansetron HCl (Zofran Inj*) 4 mg IV Q4H PRN PRN Reason: NAUSEA/VOMITING Tamsulosin HCl (Flomax Cap*) 0.4 mg PO DAILY [facility] Last Admin: 04/14/18 08:34 Dose: 0.4 mg Ticagrelor (Brilinta*) 90 mg PO BID [facility] Last Admin: 04/14/18 09:37 Dose: 90 mg Vital Signs - 8 hr 04/14/18 04/14/18 04/14/18 07:59 08:00 11:03 Temperature 97.9 F Pulse Rate 71 Respiratory 16 18 10 Rate Blood Pressure 123/70 (mmHg) O2 Sat by Pulse 95 Oximetry 11/07/0104/14/18 04/14/18 11:04 11:06 11:15 Temperature 95.4 F Pulse Rate 68 61 60 Respiratory 14 22 13 Rate Blood Pressure 121/79 116/77 116/77 (mmHg) O2 Sat by Pulse 91 95 96 Oximetry 04/14/18 04/14/18 04/14/18 11:30 11:45 12:00 Temperature Pulse Rate 59 55 56 Respiratory 21 10 19 Rate Blood Pressure 129/76 111/79 98/77 (mmHg) O2 Sat by Pulse 96 95 96 Oximetry 04/14/18 04/14/18 04/14/18 12:01 12:15 12:32 Temperature Pulse Rate 59 59 64 Respiratory 21 22 24 Rate Blood Pressure 125/74 123/70 (mmHg) O2 Sat by Pulse 96 93 96 Oximetry Oxygen Devices in Use Now: None Appearance: NAD Eyes: No Scleral Icterus, PERRLA Ears/Nose/Mouth/Throat: NL Teeth, Lips, Gums Neck: NL Appearance and Movements; NL JVP Respiratory: Symmetrical Chest Expansion and Respiratory Effort, Clear to Auscultation Cardiovascular: NL Sounds; No Murmurs; No JVD Abdominal: NL Sounds; No Tenderness; No Distention Lymphatic: No Cervical Adenopathy Extremities: No Edema Skin: No Rash or Ulcers Neurological: Alert and Oriented x 3, NL Muscle Strength and Tone Nutrition: Taking PO's Result Diagrams: 04/13/18 05:22 04/13/18 05:22 Additional Lab and Data: Laboratory Results - last 24 hr 04/13/18 04/13/18 05:22 05:22 WBC 5.0 RBC 3.93 L Hgb 12.6 L Hct 37 L MCV 94 MCH 32 H MCHC 34 RDW 13 Plt Count 172 MPV 7.4 Neut % (Auto) 66.1 Lymph % (Auto) 22.7 L [place] % (Auto) 7.5 H Eos % (Auto) 3.3 Baso % (Auto) 0.4 Absolute Neuts (auto) 3.3 Absolute Lymphs (auto) 1.1 Absolute Monos (auto) 0.4 Absolute Eos (auto) 0.2 Absolute Basos (auto) 0 Absolute Nucleated RBC 0 Nucleated RBC % 0 Sodium 139 Potassium 4.0 Chloride 109 Carbon Dioxide 24 Anion Gap 6 BUN 14 Creatinine 0.88 Est GFR ( Amer) 103.6 Est GFR (Non-Af Amer) 85.6 BUN/Creatinine Ratio 15.9 Glucose 107 H Calcium 8.8 Triglycerides 116 Cholesterol 184 LDL Cholesterol 126 HDL Cholesterol 34.4 Assess/Plan/Problems-Billing Assessment: 68 yo male PMH CAD s/p RCA MARCIA stent twice (most recently September 2017, with residual 2nd Diag 90% stenosis), recent ACS rule out, p/w syncope after nitro use in setting of anginal chest pain. ST depressions and junctional rhythm. Trop negative. Chest pain and more ST depression during exercise stress test. s/ p C 04/14 with additional RCA stent placed. Chronic CK elevation and intolerant of statins (nocturnal leg cramps). - Patient Problems (1) Syncope and collapse Current Visit: Yes Status: Acute Code(s): R55 - SYNCOPE AND COLLAPSE SNOMED Code(s): 011704670 Comment: In setting on nitro use and angina. junctional sai on initial EKGs. s/p RCA stent 04/14 (2) Chest pain Current Visit: No Status: Acute Code(s): R07.9 - CHEST PAIN, UNSPECIFIED SNOMED Code(s): 61191507 Comment: s/p RCA stent today. Troponins all negative. However chest pressure is very exertionaly with up hill walking and intercourse. ST depressions initially and with exercise stress test Appreciate cardiology and interventional cardiology recs. Has known 2nd diagonal stenosis and not able to tolerate statins in past. claims never missed any doses of BID brilinta or aspirin. continue beta stanley. (3) Elevated CK Current Visit: No Status: Acute Code(s): R74.8 - ABNORMAL LEVELS OF OTHER SERUM ENZYMES SNOMED Code(s): 301455959 Comment: chronic elevation, even when not on statin. Per Dr. 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 aldolase, ESR, CRP all wnl previously. Dr. Bullard has been trying to get patient PSCK-9 Inhibitors but currently too expensive for his budget. will plan script for Repatha (4) Full code status Current Visit: No Status: Acute Code(s): Z78.9 - OTHER SPECIFIED HEALTH STATUS SNOMED Code(s): 551414514 (5) Gout Current Visit: No Status: Chronic Code(s): M10.9 - GOUT, UNSPECIFIED SNOMED Code(s): 18087126 Comment: - Continue allopurinol (6) HLD (hyperlipidemia) Current Visit: No Status: Chronic Code(s): E78.5 - HYPERLIPIDEMIA, UNSPECIFIED SNOMED Code(s): 56820111 Comment: - claims severe statin intolerance. (7) HTN (hypertension) Current Visit: No Status: Chronic Code(s): I10 - ESSENTIAL (PRIMARY) HYPERTENSION SNOMED Code(s): 68110654 Comment: - SBP 99-110s - hold amlodipine - continue metoprolol (8) History of coronary artery disease Current Visit: No Status: Chronic Code(s): Z86.79 - PERSONAL HISTORY OF OTHER DISEASES OF THE CIRCULATORY SYSTEM SNOMED Code(s): 056838924 Comment: - S/P 2 cardiac stents in 2012 and one September 2017 - Continue ASA and metoprolol and brilinta Status and Disposition: medicine inpatient. Likely home 04/15 Attending: David Lloyd
[2018-04-14] MEDS: Acetaminophen TAB* 325 MG PO PRN (20:25)
[2018-04-15] MEDS: Omeprazole CAP* 20 MG PO SCH (06:02)
[2018-04-15 06:16] LABS: ABS Basophils 0 10^3/ul (0-0.2); ABS Eosinophils 0.2 10^3/ul (0-0.6); ABS Lymphocytes 0.9 10^3/ul (1.0-4.8); ABS Monocytes 0.5 10^3/ul (0-0.8); ABS Neutrophils 4.1 10^3/ul (1.5-7.7); ABS Nucleated RBC 0 10^3/ul; Eosinophil % 3.8 % (0-6); Hematocrit 39 % (42-52); Hemoglobin 13.5 g/dl (14.0-18.0); Lymphocyte % 15.7 % (25-47); Mean Corpuscular HGB Conc 34 g/dl (31-36); Mean Corpuscular Hemoglobin 32 pg (27-31); Mean Corpuscular Volume 93 fL (80-94); Mean Platelet Volume 7.2 um3 (7.4-10.4); Nucleated Red Blood Cells % 0; Platelet Count 174 10^3/ul (150-450); Red Cell Distribution Width 14 % (10.5-15); White Blood Count 5.8 10^3/ul (3.5-10.8)
[2018-04-15 06:33] LABS: EGFR Non-African American 91.6 (>60)
[2018-04-15] MEDS: Tamsulosin CAP* 0.4 MG PO SCH (08:50)
[2018-04-15] MEDS: Metoprolol Tartrate TAB* 50 mg PO SCH (08:50)
[2018-04-15] MEDS: Aspirin EC TAB* 81 MG TAB.EC PO SCH (08:51)
[2018-04-15] MEDS: Ticagrelor* 90 MG TAB PO SCH (08:51)
[2018-04-15] MEDS: Allopurinol TAB* 300 MG PO SCH (10:47)
[2018-04-15 11:30] VITALS: BP 106/68
--- NOTE | 2018-04-16 02:29 | CATH ---
CC: Dr. Frank; Dr. Bullard STENT REPORT: DATE OF PROCEDURE: 04/14/18 PRIMARY CARE PHYSICIAN: Dr. Frank. BUSINESS SERVICES OFFICER: Dr. Bullard. PROCEDURES: Right common femoral artery access, bilateral selective coronary cineangiography, left h eart catheterization. Stent placement RCA 2.75 x 20 drug- eluting stent, Angio-Seal right common fem oral artery. HISTORY: A 68-year-old male with previous RCA stenting with 2.25 x 24 and 2.5 x 16 drug-eluting sten ts in 2012, then September of 2017 received a 2.5 x 16 drug-eluting stent proximal to the prior stents. Now, 6 months later, he has very typical exertional progressive angina, stress imaging showed an infe rior area of ischemia. According to the records, he is intolerant of statins, although his symptoms a re very vague and consist primarily of cramping. 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 PROCEDURE ACCESS: Right common femoral artery as, during the procedure in September, right subclavian to rtuosity precluded completing the procedure from that approach. SHEATH: 6.5. DIAGNOSTIC CATHETERS: 6FR4, 6FL3.5. MEDICATIONS: 1. Subcu lidocaine. 2. IV Versed. 3. IV fentanyl. 4. Heparin 5000 units, 3000 units. 5. Nitroglycerin 200 mcg IA post stenting. The 6.5-[place] sheath was exchanged for a 6-[place] x 45 braided sheath because of right iliac artery tortuosity, which produced poor torque response. An ART3 guide engaged the RCA, but provided inadequ ate support to cross the heavily calcified proximal RCA using a BMW as well as a aerial applicator pilot wire. It was then exchanged to an MP1, which again provided inadequate support with prolapse out of the RCA. Ther efore, a GuideLiner was used with the MP1 and the Mailman wire and a 2.75 x 20 mm Synergy drug-elutin g stent was deployed, and then post dilated with a 2.75 x 20 NC balloon to 18 atmospheres for 30 seco nds. HEMODYNAMICS: Initial AO 120/69, LV 125/6-13, no aortic valve gradient on pullback. ANGIOGRAPHY: Right common femoral artery. Sheath entry is in segment 2, there is no stenosis. RCA. The RCA has a proximal costa's crook, is heavily calcified, the previously placed stents bey ond the acute margin are evident. There is mild intimal hyperplasia at the proximal end preceded by moderate stenosis and then at the acute margin, there is a focal 95% stenosis, there is distal compet itive flow. Left main. The left main has minor irregularity, no significant stenosis. LAD. The LAD is moderate with a moderate first diagonal, a smaller second diagonal which has diffuse proximal up to 50% to 60% stenosis, followed by a bifurcation where the more superior side branch forbes s an ostial 90% stenosis, the more posterior side branch has an 80% stenosis, these are unchanged and too small for intervention. The LAD has a 30% stenosis after the second diagonal, distally wraps around the apex and supplies col laterals to the RPDA. Circumflex. The circumflex is not dominant, relatively small in caliber, supplies a small marginal, a small posterolateral, has luminal irregularity, but no significant stenosis. After right coronary artery stent implantation, post dilatation, the RCA is widely patent, fills a nu mber of distal posterolateral branches. There is no residual stenosis at the stent site, the proxima l RCA is anatomically unchanged with fairly diffuse heavily calcified atherosclerosis without signifi cant stenosis. CONCLUSION: 1. Two-vessel disease, unchanged diagonal stenoses, unsuitable for PCI. Rapid progression of right coronary disease proximal to prior stents, excellent angiographic result with drug-eluting stent plac ement. He needs aggressive lipid management. It is unclear whether he is truly statin intolerant. 2. No aortic stenosis with normal left-sided hemodynamics. 3. Successful right femoral access. 4. Successful Angio-Seal deployment, right common femoral artery. [id number]/[facility] #: [id number]
--- NOTE | 2018-04-16 09:08 | DS ---
DISCHARGE SUMMARY: DATE OF ADMISSION: 04/12/18 DATE OF DISCHARGE: 04/15/18 PROVIDER: Radha Hebert NP ATTENDING PHYSICIAN ON DAY OF DISCHARGE: David Lloyd MD PRIMARY CARE PHYSICIAN: Dr. Ildefonso Frank OUTPATIENT HEALTH INSURANCE AGENT: Dr. Lyly Bullard CONSULTING MAILMASTER: Dr. Myles Richards CHIEF COMPLAINT: Chest pain and syncope after taking nitroglycerin. HISTORY OF PRESENT ILLNESS: Parrish Yates is a 68-year-old male with a past medical history of CAD, status post 2 catheterizations with RCA stents most recently in September 2017, hyperlipidemia, hypertension, BPH, GERD, and chronic CK elevations attributed to chronic myositis per outpatient records and overall statin intolerance with leg cramps. 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 He climbed down the ladder, took a nitroglycerin and syncopized. He was [place] [facility] [place] and was admitted for ACS rule out. He had negative troponins x3, but ST depressions in V3 through V6 and was set up for an exercise stress test, which he was not able to complete to full completion given return of his chest pressure symptoms and again ST depressions. He had nuclear medicine Lexiscan component, which showed small areas of reversible change in the inferior wall close to the septum at the base of heart and in the inferior wall close to the base of the heart, which was deemed low risk. Of note, he had also had a stress test 2 weeks prior on 03/28/18 with a similar distribution and at that time characterized as reversible defect involving the septum and inferior myocardium in the more superior portions of the chamber and at that time seemed intermediate risk. Given his more lucid history, his failing of exercise component, known CAD, and then statin intolerance, he was deemed appropriate for a left heart catheterization, which Dr. Myles Richards performed on 04/14/18. He found areas of RCA stenosis and an additional drug- eluting stent was placed. Full official report is still pending dictation and should be followed up upon. The patient recovered in the ICU without further incident and symptom free. He is being sent home with a prescription for evolocumab (Repatha), which has recently had reported 60% reduction in grewal from the land resource specialist. Of note, Dr. Bullard had been attempting to set him up PCSK9 inhibitor for a while now, but the grewal had been prohibitively expensive. Social Work also worked with him and he was recommended to apply for the [employer] Program that may allow for additional medication assistance through Medicare. LDL during admission was 126, HDL was 34. DISCHARGE MEDICATIONS: Included: 1. Tylenol 650 mg p.o. q.4 hours p.r.n. 2. Allopurinol 300 mg p.o. daily. 3. Amlodipine 5 mg p.o. daily. 4. Aspirin 81 mg daily. 5. Cetirizine 10 mg p.o. daily. 6. Evolocumab 140 mg subcutaneous every 14 days (new). 7. Fluconazole cream 1% cream topical b.i.d. 8. Flonase 2 sprays both nares daily p.r.n. 9. Metoprolol tartrate 50 mg p.o. daily. 10. Nitroglycerin tab 0.4 mg sublingual q.5 minutes p.r.n. chest pain. 11. Omeprazole 20 mg p.o. daily. 12. Tamsulosin 0.4 mg p.o. daily. 13. Brilinta (ticagrelor) 90 mg p.o. b.i.d. DISCHARGE DIET: Heart healthy. FOLLOWUP: Please follow up with Dr. Ildefonso Frank within 7 days, Dr. Bullard within 7 days. He was also referred to Dr. Paul for further evaluation of his chronic elevated CK levels, which have notably still remain in as high as 3400 despite being off of statins. He did have notably negative aldolase on 05/31 and looks like he had a CK-MM percent of 91% and the macro type 1 of 9%. He also had an CHRISTINA titer that was negative (less than 1-80 on 02/23/18). His TH has been normal. LDL during admission was 126, HDL was 34. Hemoglobin A1c was 5.8. TIME SPENT: Time spent on discharge was 35 minutes. [id number]/[facility] #: [id number] [facility]
== END 2018-04-15 11:20 | disposition home or self-care (01) | DRG 247 ==
LOC: ED 09:46 → MEDTELE 13:17 → OBSVTOIN 04-13 17:23 → ICU 04-14 11:15
PROVIDERS: ADMIT Internal Medicine; ATTEND Internal Medicine
PROC: 4A02XM4 Measurement of Cardiac Total Activity, External Approach (ICD-10-PCS; 2018-04-13)
PROC: 027034Z Dilation of Coronary Artery, One Artery with Drug-eluting Intraluminal Device, Percutaneous Approach (ICD-10-PCS; 2018-04-14)
PROC: 4A023N7 Measurement of Cardiac Sampling and Pressure, Left Heart, Percutaneous Approach (ICD-10-PCS; 2018-04-14)
PROC: B2111ZZ Fluoroscopy of Multiple Coronary Arteries using Low Osmolar Contrast (ICD-10-PCS; principal; 2018-04-14 09:30)
DX: I25.119 Atherosclerotic heart disease of native coronary artery with unspecified angina pectoris (principal); N17.9 Acute kidney failure, unspecified; I10 Essential (primary) hypertension; E78.5 Hyperlipidemia, unspecified; K21.9 Gastro-esophageal reflux disease without esophagitis; M60.9 Myositis, unspecified; N40.0 Benign prostatic hyperplasia without lower urinary tract symptoms; R00.1 Bradycardia, unspecified; M10.9 Gout, unspecified; R79.89 Other specified abnormal findings of blood chemistry; J30.2 Other seasonal allergic rhinitis; M19.042 Primary osteoarthritis, left hand; M19.041 Primary osteoarthritis, right hand; R55 Syncope and collapse; R74.8 Abnormal levels of other serum enzymes; Z98.42 Cataract extraction status, left eye; Z98.41 Cataract extraction status, right eye; Z88.8 Allergy status to other drugs, medicaments and biological substances; Z80.49 Family history of malignant neoplasm of other genital organs; Z82.49 Family history of ischemic heart disease and other diseases of the circulatory system; I25.2 Old myocardial infarction; Z95.5 Presence of coronary angioplasty implant and graft; Z87.442 Personal history of urinary calculi; Z79.82 Long term (current) use of aspirin; Z79.02 Long term (current) use of antithrombotics/antiplatelets
CPT/HCPCS: 36415; 71045; 78452; 80048; 80053; 80061; 83036; 83605; 83735; 83880; 84484; 85025; 85347; 85610; 85730; 87641; 93005; 93017; 93306; 93458; 99156; 99157; 99285; A9270-GY; A9502; C1725; C1760; C1769; C1876; C1887; C1894; C9600-RC; G0378; J1644; J2250; J3010

== ENCOUNTER 2018-04-30 10:07 | Emergency (ER) | payer MEDICARE ==
--- OUTSIDE RECORDS SUMMARY | 2018-04-30 10:12 | XMS REPORT ---
:1950 External Reference #:[id number] Author Organization [employer] Address [address] [place] [address] Phone [phone] Care Team Providers Name Role Phone Ildefonso Frank MD Primary Care Physician Unavailable Payers Type Date Identification Numbers Payment Provider Subscriber Health Maintenance Effective: Policy Number: Medicare Eren Parrish Yates Organization (O) 06/14/2013 [id number] o Group Number: [id number] [address] [address] PayID: [id number] [place] [address] Problems Date Description Provider Status Onset: 05/31/2013 Chest pain Lyly Bullard M.D. Active Onset: 05/31/2013 Dyspnea Lyly Bullard M.D. Active Onset: 05/31/2013 Essential hypertension Lyly Bullard M.D. Active Onset: 05/31/2013 Mixed hyperlipidemia Lyly Bullard M.D. Active Onset: 06/29/2013 Coronary arteriosclerosis Kade Amor M.D. Active Onset: 12/23/2015 Disturbance in sleep behavior Patricia Zafar MD Active Onset: 01/20/2016 Obstructive sleep apnea syndrome Patricia Zafar MD Active Onset: 04/13/2016 Central sleep apnea syndrome Patricia Zafar MD Active Onset: 04/21/2018 Hyperlipidemia Lyly Bullard M.D. Active Onset: 12/23/2017 Disorder of muscle Nick Miguel M.D. 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 day 7 day a week Work Status Currently Working Cigarette Use Never Smoked Cigarettes ETOH Use Denies alcohol use quit drinking 20 years ago Recreational Drug Use Marijuana smokes 1 joint daily to help pain Smoking Patient has never smoked Daily Caffeine consumes chocolate frequently Daily Caffeine Consumes on average 1 cup of macha green tea hot tea per day Exercise Type/Frequency Exercises regularly Allergies, Adverse Reactions, Alerts Date Description Reaction Status Severity Comments 10/02/2014 Pravastatin active elevated CPK 06/29/2013 NKDA inactive Medications Medication Date Status Form Strength Qnty SIG Indications Ordering Provider Brilinta 10/04 Active Tablets 90mg 180ta 1 tab by Kade bs mouth twice D. Brand, a day M.D. Metoprolol 03/04 Active Tablets ER 50mg 1 tablet po [place], Succinate 24HR daily MD Ildefonso Amlodipine Active Tablets 2.5mg 1 po qd [place], Besylate MD Ildefonso Fluticasone Active Suspension 50mcg/Act 16gm 2 spray each [place] , Propionate nostril Ildefonso daily as MD needed Aspirin Active Tablets 81mg 1 po qd Unknown / Excedrin Active Tablets 500-65mg 2 tab qd prn Unknown Tension /0000 Headache Tamsulosin HCL Active Capsules 0.4mg 30cap 1 po qd Unknown / s Zyrtec Allergy Active Tablets 10mg 90tab 1 tab qd Unknown / s Ciclopirox Active Solution 8% 6.600 apply to /0000 ml affected toenails and surrounding skin at bedtime prn Omeprazole Active Capsules DR 20mg 30cap 1 by mouth Unknown /0000 s every day Nitrostat Active Tablets Sub 0.4mg one sl q5min /0000 up to 3 doses as needed Allopurinol Active Tablets 300mg 1 by mouth Unknown /0000 every day Acetaminophen Active Tablets 325mg 2 tablets by Unknown /0000 mouth every 6 hours as needed for pain/fever Praluent 07/23 Hx Solution 75mg/ml 2ml 1 injection Lyly Pen-Inject sc every 2 [place], - weeks M.D. 08/25 Clopidogrel 11/28 Hx Tablets 75mg 30tab 1 by mouth Lyly Bisulfate /2013 s every day to [place], - be stopped M.D. 07/04 end of 2013 Clopidogrel 06/02 Hx Tablets 75mg 30tab 1 po qd Lyly s [place], - M.D. 11/28 Metoprolol 06/02 Hx Tablets 25mg 30tab 1 po qd Lyly Tartrate s [place], - M.D. 03/04 Pravastatin 06/02 Hx Tablets 40mg 30tab 1 tablet Lyly Sodium s daily at [place], - bedtime M.D. 03/16 Atorvastatin 00/00 Hx Tablets 10mg 1 by mouth Unknown Calcium /0000 every day - 12/21 Montelukast 00 Hx Tablets 10mg 1 by mouth Unknown Sodium /0000 every day - 12/21 Fenofibrate 00 Hx Tablets 145mg 1 daily Monika, /0000 Nat Fregoso MD 02/02 Fish Oil 0000 Hx 1 daily Unknown /0000 - 10/11 Charcoal 00/00 Hx 1 daily Unknown /0000 - 10/11 Vital Signs Date Vital Result Comment 04/21/2018 Height 66 inches 5'6" Weight 146.00 lb without shoes BP Systolic Sitting 140 mmHg BP Diastolic Sitting 90 mmHg BP Systolic Standing 142 mmHg BP Diastolic Standing 90 mmHg BMI (Body Mass Index) 23.6 kg/m2 Ejection Fraction 55-60% date 04/13/18 ECHO 02/04/2018 Height 66 inches 5'6" Weight 152.00 lb Heart Rate 70 /min BP Systolic Sitting 110 mmHg lue reg cuff BP Diastolic Sitting 60 mmHg lue reg cuff BP Systolic Standing 112 mmHg BP Diastolic Standing 62 mmHg Respiratory Rate 16 /min BMI (Body Mass Index) 24.5 kg/m2 12/23/2017 Height 66 inches 5'6" Weight 151.00 lb Heart Rate 74 /min BP Systolic 120 mmHg BP Diastolic 72 mmHg BMI (Body Mass Index) 24.4 kg/m2 11/09/2017 Height 66 inches 5'6" Weight 156.00 lb w/ shoes Heart Rate 52 /min reg BP Systolic Sitting 110 mmHg Lue reg cuff BP Diastolic Sitting 84 mmHg Lue reg cuff BP Systolic Standing 108 mmHg Lue BP Diastolic Standing 80 mmHg Lue Respiratory Rate 16 /min BMI (Body Mass Index) 25.2 kg/m2 Ejection Fraction 60% as of 10/04/17 cath 10/12/2017 Height 66 inches 5'6" Weight 157.00 lb w/ shoes Heart Rate 74 /min BP Systolic Sitting 108 mmHg lue reg cuff BP Diastolic Sitting 72 mmHg lue reg cuff Respiratory Rate 18 /min BMI (Body Mass Index) 25.3 kg/m2 Ejection Fraction no echo/ss 01/05/2017 Height 66 inches 5'6" Weight 153.00 lb with shoes Heart Rate 70 /min BP Systolic Sitting 128 mmHg Lue reg cuff BP Diastolic Sitting 76 mmHg Lue reg cuff BP Systolic Standing 122 mmHg Lue reg cuff BP Diastolic Standing 74 mmHg Lue reg cuff Respiratory Rate 15 /min BMI (Body Mass Index) 24.7 kg/m2 08/18/2016 Height 66 inches 5'6" Weight 160.00 lb Heart Rate 81 /min BP Systolic Sitting 130 mmHg BP Diastolic Sitting 70 mmHg Respiratory Rate 16 /min O2 % BldC Oximetry 95 % BMI (Body Mass Index) 25.8 kg/m2 06/03/2016 Heart Rate 70 /min BP Systolic Sitting 124 mmHg BP Diastolic Sitting 72 mmHg Respiratory Rate 14 /min O2 % BldC Oximetry 95 % 04/13/2016 Height 67 inches 5'7" Weight 160.00 lb Heart Rate 68 /min BP Systolic Sitting 130 mmHg BP Diastolic Sitting 72 mmHg Respiratory Rate 16 /min O2 % BldC Oximetry 95 % BMI (Body Mass Index) 25.1 kg/m2 03/02/2016 Height 67 inches 5'7" Weight 155.00 lb Heart Rate 82 /min BP Systolic Sitting 122 mmHg BP Diastolic Sitting 62 mmHg Respiratory Rate 16 /min O2 % BldC Oximetry 96 % BMI (Body Mass Index) 24.3 kg/m2 01/20/2016 Height 67 inches 5'7" Weight 155.00 lb Heart Rate 72 /min BP Systolic 118 mmHg BP Diastolic 64 mmHg Respiratory Rate 14 /min O2 % BldC Oximetry 95 % BMI (Body Mass Index) 24.3 kg/m2 12/23/2015 Height 67 inches 5'7" Weight 155.38 lb with shoes on Heart Rate 71 /min BP Systolic Sitting 120 mmHg BP Diastolic Sitting 66 mmHg Respiratory Rate 16 /min O2 % BldC Oximetry 96 % BMI (Body Mass Index) 24.3 kg/m2 Neck Circumference in inches 14.5 09/19/2015 Height 64 inches 5'4" Weight 156.00 lb w/o shoes Heart Rate 64 /min reg BP Systolic Sitting 110 mmHg Lue BP Diastolic Sitting 76 mmHg Lue BP Systolic Standing 104 mmHg Lue, reg cuff BP Diastolic Standing 74 mmHg Lue, reg cuff Respiratory Rate 16 /min BMI (Body Mass Index) 26.8 kg/m2 Ejection Fraction 60% as of 06/01/13 cath 10/02/2014 Height 64 inches 5'4" Weight 146.00 lb w/o shoes Heart Rate 66 /min reg BP Systolic Sitting 114 mmHg Ra, reg cuff BP Diastolic Sitting 60 mmHg Ra, reg cuff BP Systolic Standing 112 mmHg Ra BP Diastolic Standing 70 mmHg Ra Respiratory Rate 18 /min BMI (Body Mass Index) 25.1 kg/m2 03/19/2014 Height 64 inches 5'4" Weight 141.00 lb without shoes Heart Rate 54 /min BP Systolic Sitting 118 mmHg La reg cuff BP Diastolic Sitting 80 mmHg La reg cuff BP Systolic Standing 110 mmHg La reg cuff BP Diastolic Standing 74 mmHg La reg cuff Respiratory Rate 15 /min BMI (Body Mass Index) 24.2 kg/m2 07/14/2013 Height 64 inches 5'4" Weight 133.00 lb Heart Rate 56 /min BP Systolic Sitting 110 mmHg LA reg cuff BP Diastolic Sitting 72 mmHg LA reg cuff BP Systolic Standing 116 mmHg LA BP Diastolic Standing 72 mmHg LA Respiratory Rate 16 /min BMI (Body Mass Index) 22.8 kg/m2 06/29/2013 Height 64 inches 5'4" Weight 131.00 lb Heart Rate 68 /min BP Systolic Sitting 118 mmHg Ra reg cuff BP Diastolic Sitting 72 mmHg Ra reg cuff BP Systolic Standing 120 mmHg Ra BP Diastolic Standing 80 mmHg Ra Respiratory Rate 16 /min BMI (Body Mass Index) 22.5 kg/m2 05/31/2013 Height 64 inches 5'4" Weight 124.00 lb without shoes BP Systolic 160 mmHg R arm reg cuff BP Diastolic 100 mmHg R arm reg cuff BP Systolic Sitting 154 mmHg L arm reg cuff BP Diastolic Sitting 100 mmHg L arm reg cuff BP Systolic Standing 150 mmHg L arm reg cuff BP Diastolic Standing 104 mmHg L arm reg cuff Respiratory Rate 17 /min BMI (Body Mass Index) 21.3 kg/m2 Results Test Date Test Result H/L Range Note Laboratory Studies 03/28/2018 Anion Gap 6 mmol/L 2-11 BUN/Creatinine Ratio 18.5 8-20 Blood Urea Nitrogen 17 mg/dL 6-24 Calcium Level 9.2 mg/dL 8.6-10.3 Carbon Dioxide Level 27 mmol/L 22-32 Chloride Level 103 mmol/L 101-111 Creatinine 0.92 mg/dL 0.67-1.17 Estimated GFR () 98.4 Estimated GFR (Non- 81.3 Glucose Level 113 mg/dL High 70-100 Potassium Level 4.1 mmol/L 3.5-5.0 Sodium Level 136 mmol/L 135-145 Total Creatine Kinase 2983 U/L High 10-223 Laboratory Studies 03/26/2018 Thyroid Stimulating Hormone 2.03 mcIU/mL 0.34-5.60 (TSH) Laboratory Studies 03/25/2018 Troponin I 0.00 ng/mL Laboratory Studies 03/25/2018 Absolute Basophils (auto) 0 10^3/ul 0-0.2 Absolute Eosinophils (auto) 0.4 10^3/ul 0-0.6 Absolute Lymphocytes (auto) 1.3 10^3/ul 1.0-4.8 Absolute Monocytes (auto) 0.5 10^3/ul 0-0.8 Absolute Neutrophils (auto) 3.2 10^3/ul 1.5-7.7 Alanine Aminotransferase (Alt/SGPT) 14 U/L 7-52 Albumin 3.6 g/dL 3.2-5.2 Albumin/Globulin Ratio 1.3 1-3 Alkaline Phosphatase 59 U/L 34-104 Aspartate Amino Transf (Ast/Sgot) 17 U/L 13-39 Basophils (%) (Auto) 0.3 % 0-2 Cholesterol Level 184 mg/dL Eosinophils (%) (Auto) 7.0 % High 0-6 Globulin 2.7 g/dL 2-4 HDL Cholesterol 35.1 mg/dL Hematocrit 39 % Low 42-52 Hemoglobin 13.5 g/dL Low 14.0-18.0 LDL Cholesterol 123 mg/dL Lymphocytes (%) (Auto) 23.5 % Low 25-47 Mean Corpuscular Hemoglobin 32 pg High 27-31 Mean Corpuscular Hemoglobin Concent 34 g/dL 31-36 Mean Corpuscular Volume 93 fL 80-94 Mean Platelet Volume 7.2 um3 Low 7.4-10.4 Monocytes (%) (Auto) 8.4 % High 0-7 Neutrophils (%) (Auto) 60.8 % 38-83 Nucleated RBC Absolute Count (auto) 0 10^3/ul Nucleated Red Blood Cells % 0.1 Platelet Count 187 10^3/ul 150-450 Red Blood Count 4.25 10^6/ul 4.00-5.40 Red Cell Distribution Width 14 % 10.5-15 Total Bilirubin 0.40 mg/dL 0.2-1.0 Total Protein 6.3 g/dL Low 6.4-8.9 Triglycerides Level 129 mg/dL White Blood Count 5.3 10^3/ul 3.5-10.8 Laboratory Studies 03/24/2018 Activated Partial 27.5 seconds 26.0-36.3 Thromboplast Time B-Type Natriuretic Peptide 28 pg/mL Creatine Kinase MB 1.6 ng/mL 0.6-6.3 International Ratio (Anticoag Ther) 0.86 0.77-1.02 Lactic Acid Level 1.2 mmol/L 0.5-2.0 Magnesium Level 2.1 mg/dL 1.9-2.7 Laboratory test finding 12/23/2017 Creatine Kinase(CK) 2677 U/L High 10- 223 Myoglobin 60.3 ng/mL 17.4-105.7 Aldolase 5.5 U/L <7.7 1 C Reactive Protein 1.01 mg/L <8.01 Erythrocyte Sed Rate 16 mm/Hr 0-40 Nuclear Ab (Shirley) by Ifa, IgG <1:80 (Negative) 2 Comp Metabolic Panel 03/20/2014 Sodium 136 mmol/L 133-145 Potassium 4.6 mmol/L 3.7-5.6 Chloride 101 mmol/L 101-111 Co2 Carbon Dioxide 32 mmol/L 22-32 Anion Gap 3 mmol/L 2-11 Glucose 92 mg/dL 70-100 Blood Urea Nitrogen 17 mg/dL 6-24 Creatinine 1.07 mg/dL 0.67-1.17 BUN/Creatinine Ratio 15.9 8-20 Calcium 9.5 mg/dL 8.6-10.3 Total Protein 7.2 g/dL 6.4-8.9 Albumin 4.3 g/dL 3.2-5.2 Globulin 2.9 g/dL 2-4 Albumin/Globulin Ratio 1.5 1-3 Total Bilirubin 0.50 mg/dL 0.2-1.0 Alkaline Phosphatase 41 U/L 34-104 Alt 12 U/L 7-52 Ast 14 U/L 13-39 Egfr Non- 69.1 >60 Egfr 88.9 >60 3 Lipid Profile (Trig/Chol/HDL) 03/20/2014 Triglycerides 126 mg/dL 4 Cholesterol 210 mg/dL 5 HDL Cholesterol 35.7 mg/dL 6 LDL Cholesterol 149 mg/dL 7 Laboratory test finding 03/20/2014 Creatine Kinase 1916 U/L High 10-223 Iron & Iron Binding Capacity 03/20/2014 Iron 73 g/dL 50-212 Unsaturated Iron Binding 318 g/dL Total Iron Binding Capacity 391 g/dL 250-450 % Iron Saturation 19 % 15-55 Laboratory test finding 03/20/2014 Ferritin 50.2 ng/mL 24-336 CBC No Diff 03/20/2014 White Blood Count 4.6 10^3/uL Low 4.8-10.8 Red Blood Count 4.39 10^6/uL 4.0-5.4 Hemoglobin 13.8 g/dL Low 14.0-18.0 Hematocrit 40 % Low 42-52 Mean Corpuscular Volume 90 fL 80-94 Mean Corpuscular Hemoglobin 31 pg 27-31 Mean Corpuscular HGB Conc 35 g/dL 31-36 Red Cell Distribution Width 13 % 10.5-15 Platelet Count 176 10^3/uL 150-450 Mean Platelet Volume 7 um3 Low 7.4-10.4 Surgical Pathology 01/02/2014 S RUN DATE: 01/03/ <SEE NOTE> 8 Laboratory test finding 06/01/2013 Inr 0.91 0.85-1.06 9 Activated Partial Thrombo Time 29.4 seconds 24.0-36.1 Laboratory test finding 05/25/2013 Troponin I 0 ng/mL 0-0.06 10 1 Test Performed by: [facility] - [address] [address] 2 <1:80 (Negative) REFERENCE VALUE <1:80 (Negative) Test Performed by: [facility] - [facility] [address] [place] [address] 3 Because ethnic data is not always readily available, this report includes an eGFR for both -Americans and non- Americans. The National Kidney Disease Education Program (NKDEP) does not endorse the use of the MDRD equation for patients that are not between the ages of 18 and 70, are , have extremes of body size, muscle mass, or nutritional status, or are non- or non-. According to the National Kidney Foundation, irrespective of diagnosis, the stage of the disease is based on the level of kidney function: Stage Description GFR(mL/min/1.73 m(2)) 1 Kidney damage with normal or decreased GFR 90 2 Kidney damage with mild decrease in GFR 60-89 3 Moderate decrease in GFR 30-59 4 Severe decrease in GFR 15-29 5 Kidney failure <15 (or dialysis) 4 Desirable <150 Borderline high 150-199 High 200-499 Very High >500 5 Desirable <200 Borderline high 200-239 High >239 6 Low <40 Desirable: 40-60 High: >60 7 Desirable <100 Near Optimal 100-129 Borderline high 130-159 High 160-189 Very High >189 8 RUN DATE: 01/03/14 [facility] LAB LIVE PAGE 1 RUN TIME: [address] [place] [id number] Specimen Inquiry Name: PARRISH YATES : [address]: Jese Villalobos MD Acct: [id number] Unit: [id number] AGE: 63 Location: ENDO Re01/02/14 SEX: M Status: REG REF SPEC: [id number] LORI: 01/02/14- SUBM DR: Jese Villalobos MD REQ: [id number] RECD: 01/02/14 STATUS: BELKIS LEONARDO DR: Lyly Frank MD _ ORDERED: LEVEL IV FINAL DIAGNOSIS Duodenum, third portion, biopsy: A. Duodenal mucosa with mild villous blunting. B. No evidence of increased intraepithelial lymphocytes. COMMENTS: The significance of the villous blunting is unknown. There is also associated surface vascular congestion. CLINICAL HISTORY Iron deficiency anemia POST-OPERATIVE DIAGNOSIS Esophagus - scar at 34 with fold, lots of scar, no active erosion; stomach - normal; duodenum - thickened fold. Hiatal hernia, gastroesophageal reflux disease - esophageal scar, iron deficiency anemia - recheck, duodenal polyp GROSS DESCRIPTION The specimen is received in formalin labeled Parrish Yates, Biopsy Thickened Fold Third Portion Duodenum, and consists of a 0.8 x 0.5 x 0.2 cm. aggregate of multiple fleming, irregular soft tissue fragments. Submitted entirely, one cassette. Signed (signature on file) Diya Espino MD 1547 END OF REPORT * ML=Testing performed at Main Lab DEPARTMENT OF PATHOLOGY, [address] [place] [address] Brad Corrigan M.D. Director [facility] # [id number] Please note the change in the INR reference range effective 13. 10 Reference Range and Interpretation: TnI (ng/mL) Interpretation Less Than 0.06 ng/mL Not supportive of diagnosis of SD 0.06 - 0.50 ng/mL Indeterminate: suggest serial studies if clinically indicated. Greater than 0.5 ng/mL Consistent with diagnosis of SD Procedures Date CPT Code Description Status 04/21/2018 97911 EKG Tracing & Interpretation Completed 03/28/2018 59867 Treadmill Interp/Report Only Completed 03/28/2018 53937 Stress Test Supervsn W/Out I/R Completed 02/04/2018 71663 EKG Tracing & Interpretation Completed 01/25/2018 24788 Nerve Conduction 07-08 Studies Completed 01/25/2018 07907 Needle Electromyography Complete, Five Or More Muscles Completed Studied 11/09/2017 55025 EKG Tracing & Interpretation Completed 10/05/2017 67673 EKG, Interpretation Only Completed 10/04/2017 84943 Left Heart Cath. Incl S/I Coronaries, Angio S/I V Gram Completed If Done 10/04/2017 44180 Treadmill Interp/Report Only Completed 10/04/2017 62043 Stress Test Supervsn W/Out I/R Completed 10/04/2017 83812 EKG, Interpretation Only Completed 10/04/2017 87609 Revascularization Acute Total/Subtotal Occlusion Completed 01/05/2017 39752 EKG Tracing & Interpretation Completed 05/12/2016 38967 Polysomnography Sleep Staging 4+ Parameters W/Cpap Completed 12/30/2015 92633 Sleep Study Unattended,HRT Rate,Oxygen Sat,Resp Completed Effort/Airflow 09/19/2015 94835 EKG Tracing & Interpretation Completed 09/04/2015 78884 Laparoscopy, Surgical Repair Initial Inguinal Hernia Completed 08/27/2015 90322 EKG, Interpretation Only Completed 10/02/2014 46530 EKG Tracing & Interpretation Completed 03/19/2014 96629 EKG Tracing & Interpretation Completed 07/14/2013 13546 EKG Tracing & Interpretation Completed 06/02/2013 45870 EKG, Interpretation Only Completed 06/01/2013 46201 Left Heart Cath. Incl S/I Coronaries, Angio S/I V Gram Completed If Done 06/01/2013 62475 EKG, Interpretation Only Completed 06/01/2013 98412 Percutaneous Transcatheter Placement Of Intracoronary Completed Stent 05/31/2013 50953 EKG Tracing & Interpretation Completed Encounters Type Date Location Provider CPT E/M Dx Office Visit 03/28/2018 [facility] Kade Amor, 23310 I25.10 10:48a Onesimo Beck Z98.61 Office Visit 03/25/2018 10:45a [facility] Brian Aden, 13493 I25.119 Onesimo Beck, [facility] Z98.61 Office Visit 02/04/2018 4:00p [facility] Lyly Bullard M.D. 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 Nick Miguel, 42991 G72.9 Services Of Onesimo Beck Office Visit 11/09/2017 12:00p [facility] Erica Bullard M.D. 44502 I25.10 Energy Efficiency Engineer E78.2 Office Visit 10/12/2017 2:15p [facility] Kade Amor, 32729 I21.4 Energy Efficiency Engineer AT [facility] Kiran R07.9 I25.10 E78.5 Office Visit 10/05/2017 3:36p [facility] Kade Amor, 87884 I21.4 [facility] Kiran I25.10 Office Visit 10/05/2017 [facility] [address]60 I21.4 [facility] LINDSAY Olguin I10 R10.13 Z86.79 Office Visit 10/04/2017 12:41p [facility] Kade Amor, 94924 I25.110 Onesimo Beck R94.39 R07.9 Office Visit 10/04/2017 10:23a [facility] 02217 R07.9 [facility] LINDSAY Olguin R10.13 I10 Z86.79 Office Visit 10/03/2017 10:15a [facility] Kailey 96271 R07.9 Assoc,pc Hospitalists LINDSAY Olguin R10.13 I10 Z86.79 Office Visit 01/05/2017 3:45p [facility] Erica Bullard M.D. 07527 I25.10 [facility] I10 E78.5 G47.33 Office Visit 08/18/2016 2:30p [facility] Sabrina Brown, 66215 G47.37 Services Of [facility] JULIA JON, [facility] G47.33 Office Visit 06/03/2016 2:15p [facility] Sabrina Brown 35859 G47.37 Services Of [facility] DONTRELL, RN, [facility] G47.33 Office Visit 04/13/2016 3:30p [facility] [place] [address] G47.33 Services Of [facility] G47.37 Office Visit 03/02/2016 3:45p [facility] [place] [address] G47.33 Services Of [facility] Office Visit 01/20/2016 3:45p [facility] [place] [address] G47.33 Services Of [facility] Office Visit 12/23/2015 2:00p [facility] [place] [address] G47.9 Services Of [facility] Office Visit 09/19/2015 3:30p [facility] Erica Bullard M.D. 76761 I25.10 [facility] E78.2 I10 Office Visit 10/02/2014 3:30p [facility] Erica Bullard M.D. 95388 414.01 [facility] 272.2 401.9 Office Visit 03/19/2014 2:00p [facility] Erica Bullard M.D. 43739 414.01 [facility] 401.9 272.2 Office Visit 07/14/2013 3:00p [facility] Erica Bullard M.D. 69721 414.01 [facility] 401.9 272.2 Office Visit 06/29/2013 2:00p [facility] Of Kade Amor 81833 414.01 Onesimo Beck Office Visit 06/02/2013 2:20p [facility] Erica Bullard M.D. 31506 411.1 [facility] Office Visit 05/31/2013 9:15a [facility] Erica Bullard M.D. 92706 786.50 [facility] 786.05 401.9 272.2 Plan of Care 04/21/2018 - Lyly Bullard M.D.I25.10 Athscl heart disease of [place] coronary artery w/o ang pctrsComments:ECG is stable.Your stent went into the right coronary artery.You have blockages in the left coronaryartery too.Referral: [facility], Rehab:Cardiac Fac/ClinicFollow up:2-4 month oV with ECGRecommendations:We will work on getting you cleared for the Repatha, I think this is very important.G72.9 Myopathy, unspecifiedComments: Your CPK is always high, likely a metabolic abnormality where your muscles break down more than normal.I don't know what is causing this.E78.5 Hyperlipidemia, unspecifiedComments:We will work on Repatha (PCSK9 inhibitor) .Follow up:Helen needs to assist w/preauthroization (with me).I10 Essential ( primary) hypertensionComments:Borderline elevated. Home BP's of 120/80, 110/70 are good.Continue to check at home and bring into Dr Frank's with you on the next visit.
--- OUTSIDE RECORDS SUMMARY | 2018-04-30 10:12 | XMS REPORT ---
:1950 External Reference #:[id number] Author Organization [employer] Address [address] [place] [address] [place] [address] Phone [phone] Care Team Providers Name Role Phone Ildefonso Frank MD Primary Care Physician Unavailable Payers Type Date Identification Numbers Payment Provider Subscriber Health Maintenance Effective: Policy Number: Medicare Eren Parrish Yates Organization (O) 06/14/2013 [id number] o Group Number: [id number] [address] [address] PayID: [id number] [place] [address] Problems Date Description Provider Status Onset: 05/31/2013 [...] apnea syndrome Patricia Zafar MD Active Onset: 12/23/2017 Disorder of muscle Nick Miguel M.D. 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 He is on his feet [...] 2 spray each [place] , Propionate nostril Ildefonso, daily as MD needed Aspirin Active Tablets 81mg 1 po qd Unknown /0000 Excedrin Active Tablets 500-65mg 2 tab qd prn Unknown Tension /0000 Headache Tamsulosin HCL Active Capsules 0.4mg 30cap 1 po qd Unknown /0000 s Zyrtec Allergy Active Tablets 10mg 90tab 1 tab qd Unknown /0000 s Ciclopirox Active Solution 8% 6.600 apply to Unknown /0000 ml affected toenails and surrounding skin at bedtime prn Omeprazole Active Capsules DR 20mg 30cap 1 by mouth Unknown /0000 s every day Nitrostat Active Tablets Sub 0.4mg one sl q5min Unknown /0000 up to 3 doses as needed Allopurinol Active Tablets 300mg 1 by mouth Unknown /0000 every day Acetaminophen Active Tablets 325mg 2 tablets by Unknown /0000 mouth every 6 hours as needed for pain/fever Praluent 07/23 Hx Solution 75mg/ml 2ml 1 injection Lyly Pen-Inject sc every 2 [place], - weeks M.D. 08/25 Clopidogrel 11/28 Hx Tablets 75mg 30tab 1 by mouth Lyly Bisulfate /2013 s every day to Juan Miguel - be stopped M.D. 07/04 end of 2013 Clopidogrel 06/02 Hx Tablets 75mg 30tab 1 po qd Lyly /2012 s [place], - M.DNico 11/28 Metoprolol 06/02 Hx Tablets 25mg 30tab 1 po qd Lyly Tartrate s Juan Miguel - M.DNico 03/04 Pravastatin 06/02 Hx Tablets 40mg 30tab 1 tablet Lyly Sodium /2012 s daily at [place], - bedtime M.D. 03/16 Atorvastatin 00 Hx Tablets 10mg 1 by mouth Unknown Calcium /0000 every day - 12/21 Montelukast 00 Hx Tablets 10mg 1 by mouth Unknown Sodium /0000 every day - 12/21 Fenofibrate Hx Tablets 145mg 1 daily Monika, /0000 Nat Fregoso MD 02/02 Fish Oil 00/00 Hx 1 daily Unknown /0000 - 10/11 Charcoal 00/00 Hx 1 daily Unknown /0000 - 10/11 Vital Signs Date Vital Result Comment 02/04/2018 Height 66 inches 5'6" Weight 152.00 [...] Date Test Result H/L Range Note Laboratory test finding 12/23/2017 Creatine Kinase(CK) 2677 U/L High 10- 223 Myoglobin 60.3 ng/mL 17.4-105.7 Aldolase 5.5 U/L <7.7 1 C Reactive Protein 1.01 mg/L <8.01 Erythrocyte Sed Rate 16 mm/Hr 0-40 Nuclear Ab (Shirley) by Ifa, IgG <1:80 (Negative) 2 Iron & Iron Binding Capacity 03/20/2014 Iron 73 g/dL 50-212 Unsaturated Iron Binding 318 g/dL Total Iron Binding Capacity 391 g/dL 250-450 % Iron Saturation 19 % 15-55 Laboratory test finding 03/20/2014 Ferritin 50.2 ng/mL 24-336 Laboratory test finding 03/20/2014 Creatine Kinase 1916 U/L High 10-223 Lipid Profile (Trig/Chol/HDL) 03/20/2014 Triglycerides 126 mg/dL 3 Cholesterol 210 mg/dL 4 HDL Cholesterol 35.7 mg/dL 5 LDL Cholesterol 149 mg/dL 6 CBC No Diff 03/20/2014 White Blood Count [...] Mean Platelet Volume 7 um3 Low 7.4-10.4 Comp Metabolic Panel 03/20/2014 Sodium 136 mmol/L [...] Egfr Non- 69.1 >60 Egfr 88.9 >60 7 Surgical Pathology 01/02/2014 S RUN DATE: 01/03/ <SEE NOTE> 8 Laboratory test finding 06/01/2013 Inr 0.91 0.85-1.06 9 Activated Partial Thrombo Time 29.4 seconds 24.0-36.1 Laboratory test finding 05/25/2013 Troponin I 0 ng/mL 0-0.06 10 1 Test Performed by: [facility] - [address] [address] 2 <1:80 (Negative) REFERENCE VALUE <1:80 (Negative) Test Performed by: [address] [address] 3 Desirable <150 Borderline high 150-199 High 200-499 Very High >500 4 Desirable <200 Borderline high 200-239 High >239 5 Low <40 Desirable: 40-60 High: >60 6 Desirable <100 Near Optimal 100-129 Borderline high 130-159 High 160-189 Very High >189 7 Because ethnic data is not always readily [...] 15-29 5 Kidney failure <15 (or dialysis) 8 RUN DATE: 01/03/14 [facility] LAB LIVE PAGE 1 RUN TIME: [id number] [place], [place] [address] Specimen Inquiry Name: PARRISH YATES : [address]: Jese Villalobos MD Acct: [id number] Unit: [id number] AGE: 63 Location: ENDO Re01/02/14 SEX: M Status: REG REF SPEC: [id number] LORI: 01/02/14- SUBM DR: Jese Villalobos MD REQ: [id number] RECD: 01/02/14 STATUS: BELKIS LEONARDO DR: Lyly [...] performed at Main Lab DEPARTMENT OF PATHOLOGY, [address] [place] [address] Brad Corrigan M.D. Director [facility] # [id number] Please note the change in the INR reference range effective 13. 10 Reference Range and Interpretation: TnI (ng/mL) Interpretation Less Than 0.06 ng/mL Not supportive of diagnosis of [place] 0.06 - 0.50 ng/mL Indeterminate: suggest serial studies if clinically indicated. Greater than 0.5 ng/mL Consistent with diagnosis of [place] Procedures Date CPT Code Description Status 03/28/2018 11863 Treadmill Interp/Report Only Completed 03/28/2018 64938 Stress Test Supervsn W/Out I/R Completed 02/04/2018 31571 EKG Tracing & Interpretation Completed 01/25/2018 52351 Nerve Conduction 07-08 Studies Completed 01/25/2018 91641 Needle Electromyography Complete, Five Or More Muscles Completed Studied 11/09/2017 24549 EKG Tracing & Interpretation Completed 10/05/2017 05413 EKG, Interpretation Only Completed 10/04/2017 51648 Left Heart Cath. Incl S/I Coronaries, Angio S/I V Gram Completed If Done 10/04/2017 46022 Treadmill Interp/Report Only Completed 10/04/2017 38502 Stress Test Supervsn W/Out I/R Completed 10/04/2017 65859 EKG, Interpretation Only Completed 10/04/2017 40258 Revascularization Acute Total/Subtotal Occlusion Completed 01/05/2017 29054 EKG Tracing & Interpretation Completed 05/12/2016 42843 Polysomnography Sleep Staging 4+ Parameters W/Cpap Completed 12/30/2015 25713 Sleep Study Unattended,HRT Rate,Oxygen Sat,Resp Completed Effort/Airflow 09/19/2015 14694 EKG Tracing & Interpretation Completed 09/04/2015 35933 Laparoscopy, Surgical Repair Initial Inguinal Hernia Completed 08/27/2015 52903 EKG, Interpretation Only Completed 10/02/2014 86081 EKG Tracing & Interpretation Completed 03/19/2014 17492 EKG Tracing & Interpretation Completed 07/14/2013 12564 EKG Tracing & Interpretation Completed 06/02/2013 09944 EKG, Interpretation Only Completed 06/01/2013 52377 Left Heart Cath. Incl S/I Coronaries, Angio S/I V Gram Completed If Done 06/01/2013 78297 EKG, Interpretation Only Completed 06/01/2013 07233 Percutaneous Transcatheter Placement Of Intracoronary Completed Stent 05/31/2013 30715 EKG Tracing & Interpretation Completed Encounters Type Date Location Provider CPT E/M Dx Office Visit 03/28/2018 [facility] Kade Amor, 34905 I25.10 10:48a Onesimo Beck Z98.61 Office Visit 03/25/2018 10:45a [facility] Of Brian Aden, 08286 I25.119 Onesimo Beck, [facility] Z98.61 Office Visit 02/04/2018 4:00p [facility] Erica Bullard M.D. 33154 M79.1 [facility] G72.9 I25.10 E78.2 Office Visit 12/23/2017 9:30a [facility] Nick Miguel, 51523 G72.9 Services Of Onesimo Beck Office Visit 11/09/2017 12:00p [facility] Erica Bullard M.D. 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 E78.2 Office Visit 10/12/2017 2:15p [facility] Marcelo Amor, 12127 I21.4 Onesimo [facility] Kiran R07.9 I25.10 E78.5 Office Visit 10/05/2017 3:36p [facility] Marcelo Amor, 56067 I21.4 Onesimo Beck I25.10 Office Visit 10/05/2017 10:24a [facility] Luz Elena Crespo, 87683 I21.4 Assoc,pc [facility] I10 R10.13 Z86.79 Office Visit 10/04/2017 12:41p [facility] Of Kade Amor, 36422 I25.110 Onesimo Beck R94.39 R07.9 Office Visit 10/04/2017 10:23a [facility] Chap[place]arif, 68752 R07.9 Assoc,pc [employer] BLOCK[facility] Hospitalists R10.13 I10 Z86.79 Office Visit 10/03/2017 10:15a [facility] Zak, 58080 R07.9 Assoc,pc [employer] Hospitalists R10.13 I10 Z86.79 Office Visit 01/05/2017 3:45p [facility] Of Lyly Bullard M.D. 03956 I25.10 [facility] I10 E78.5 G47.33 Office Visit 08/18/2016 2:30p [facility] Sabrina Brown 10800 G47.37 Services Of [facility] JULIA JON, PHONE SCREENER-JENNY G47.33 Office Visit 06/03/2016 2:15p [facility] Sabrina Brown, 36914 G47.37 Services Of [facility] JULIA JON, DORIE-JENNY G47.33 Office Visit 04/13/2016 3:30p [facility] [place] [address] G47.33 Services Of [facility] G47.37 Office Visit 03/02/2016 3:45p [facility] [place] [address] G47.33 [facility] Office Visit 01/20/2016 3:45p [facility] [place] [address] G47.33 Services [facility] Office Visit 12/23/2015 2:00p [facility] [place] [address] G47.9 Services [facility] Office Visit 09/19/2015 3:30p [facility] Of Lyly Bullard M.D. 50789 I25.10 [facility] E78.2 I10 Office Visit 10/02/2014 3:30p [facility] Of Lyly Bullard M.D. 02577 414.01 [facility] 272.2 401.9 Office Visit 03/19/2014 2:00p [facility] Lyly Bullard M.D. 16867 414.01 [facility] 401.9 272.2 Office Visit 07/14/2013 3:00p [facility] Of Lyly Bullard M.D. 42323 414.01 [facility] 401.9 272.2 Office Visit 06/29/2013 2:00p [facility] Of Kade Amor 83351 414.01 Onesimo Beck Office Visit 06/02/2013 2:20p [facility] Of Lyly Bullard M.D. 52693 411.1 [facility] Office Visit 05/31/2013 9:15a [facility] Lyly Bullard M.D. 20816 786.50 [facility] 786.05 401.9 272.2 Plan of Care Future Appointment(s):04/21/2018 2:40 pm - Lyly Bullard M.D. 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
--- NOTE | 2018-04-30 10:41 | ED ---
Syncope/Near Syncope - HPI Summary HPI Summary: The pt is a 68 y/o [place] [facility] [place] episode at work today morning. 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 She lowered him to the floor. He notes pallor, lightheadedness, coldness to touch, drowsiness, diaphoresis and fatigue. He consumed a marijuana cookie before work and has a hx of marijuana smoking but quit 2 weeks ago. The pt reports a Mhx of cardiac problems. Home Medications Medication Instructions Recorded Confirmed Type Allopurinol TAB* [Zyloprim 300 MG 300 mg PO DAILY 10/03/17 04/12/18 History TAB*] Fluconazole Cream 1 applic TOPICAL BID 10/03/17 04/12/18 History Fluticasone NASAL SPRAY 50MCG* 2 spray BOTH NARES DAILY PRN 10/03/17 04/12/18 History [Flonase NASAL SPRAY 50MCG*] Metoprolol Tartrate TAB* 50 mg PO DAILY 10/03/17 04/12/18 History [Lopressor TAB*] Tamsulosin CAP* [Flomax CAP*] 0.4 mg PO DAILY 10/03/17 04/12/18 History Aspirin EC TAB* [Ecotrin EC Low 81 mg PO DAILY 10/04/17 04/12/18 History Dose 81 MG*] Acetaminophen TAB* [Tylenol TAB*] 650 mg PO Q4H PRN tab 10/05/17 04/12/18 Rx Omeprazole CAP* [Prilosec CAP* 20 20 mg PO 0600 #30 cap. 10/05/17 04/12/18 Rx MG] Ticagrelor* [Brilinta 90 MG*] 90 mg PO BID tab 10/05/17 04/12/18 Rx Cetirizine HCl [Zyrtec] 10 mg PO DAILY 03/24/18 04/12/18 History amLODIPine TAB* [Norvasc 5 mg TAB*] 5 mg PO DAILY #30 tab 03/28/18 04/12/18 Rx Evolocumab [Repatha Syringe] 140 mg SC SEE INSTRUCTIONS #4 inj 04/15/18 Rx Nitroglycerin TAB 0.4 MG* 0.4 mg SL Q5M PRN tab 04/15/18 Rx - History Of Current Complaint Chief Complaint: EDSyncope Time Seen by Provider: 04/30/18 10:21 Hx Obtained From: Patient, Family/Social Staff Worker - Workmate Onset/Duration: Sudden Onset, Resolved Context: Witnessed Activity At Onset: Other - Cooking Associated Head Trauma: No Aggravating Factor(s): Nothing Alleviating Factor(s): Nothing Associated Signs And Symptoms: Diaphoresis, Lightheadedness - Allergies/Home Medications Allergies/Adverse Reactions: Allergies Allergy/AdvReac Type Severity Reaction Status Date / Time Bcrtqap-Fjz-Pyj Reductase Allergy See Comment Verified 04/12/18 13:12 Inhibitor ENVIRONMENTAL/SEASONAL Allergy ITCHY Uncoded 04/12/18 10:06 ALLERGIES WATERY EYES, CONGESTION PMH/Surg Hx/FS Hx/Imm Hx Previously Healthy: No Endocrine/Hematology History: Reports: Hx Anemia Denies: Hx Diabetes Cardiovascular History: Reports: Hx Angina, Hx Angioplasty, Hx Coronary Artery Disease - CARDIAC CATHERIZATION WITH 2 STENT INSERTION 2012, Hx Hypercholesterolemia, Hx Hypertension, Other Cardiovascular Problems/Disorders - 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 Denies: Hx Valvular Heart Disease Respiratory History: Reports: Other Respiratory Problems/Disorders - DEVIATED SEPTUM, CONGESTED Denies: Hx Asthma, Hx Chronic Obstructive Pulmonary Disease (COPD) GI History: Denies: Other GI Disorders Comment Only: Hx Gastroesophageal Reflux Disease - DENIES BUT TAKING DAILY OMEPRAZOLE History: Reports: Hx Benign Prostatic Hyperplasia, Hx Kidney Stones, Other Problems/Disorders - BPH Denies: Hx Renal Disease Musculoskeletal History: Reports: Hx Arthritis - OSMANI HANDS Denies: Other Musculoskeletal History Sensory History: Reports: Hx Cataracts - BILATERAL, Hx Contacts or Glasses - reading glasses, not w/pt Denies: Hx Deafness, Hx Hearing Aid Opthamlomology History: Reports: Hx Cataracts - BILATERAL, Hx Contacts or Glasses - reading glasses, not w/pt Neurological History: Reports: Hx Headaches - OCCASIONAL, Other Neuro Impairments/Disorders - OCCASIONAL DIZZINESS WHEN BENDING - Cancer History Cancer Type, Location and Year: None reported - Surgical History Surgery Procedure, Year, and Place: 05/2013 CARDIAC CATHERIZATION WITH 2 [place]ARDI[place] STENTS INSERT[place] [facility] RIGHT URETEROSCOPY, LASER LITHOTRIPSY, RIGHT URETERAL STENT INSERTION, [facility] 09/06/2014 [place] [facility] [place]x Anesthesia Reactions: No Infectious Disease History: Yes Infectious Disease History: Reports: Hx of Known/Suspected MRSA - 10/04/17 nasal swab Denies: Traveled Outside the [place] in Last 30 Days - Family History Known Family History: Negative: Cardiac Disease, Renal Disease - Social History Occupation: Employed Full-time Lives: With Family Alcohol Use: None Hx Substance Use: Yes Substance Use Type: Reports: Marijuana Substance Use Comment - Amount & Last Used: EVERYDAY Hx Tobacco Use: No Smoking Status (MU): Never Smoked Tobacco Have You Smoked in the Last Year: No Review of Systems Constitutional: Other - Positive: Drowsiness, lightheadedness Positive: Fatigue, Skin Diaphoresis Skin: Other - Positive: Pallor, "coldness to touch" Positive: Weakness, Syncope All Other Systems Reviewed And Are Negative: Yes Physical Exam - Summary Physical Exam Summary: Appearance: The patient is well-nourished in no acute respiratory distress and in no acute pain. Skin: The skin is warm and dry and skin color reflects adequate perfusion. HEENT: The head is normocephalic and atraumatic. The pupils are equal and reactive. The conjunctivae are clear and without drainage. Nares are patent and without drainage. Mouth reveals moist mucous membranes and the throat is without erythema and exudate. The external ears are intact. The ear canals are patent and without drainage. The tympanic membranes are intact. Neck: The neck is supple with full range of motion and non-tender. There are no carotid bruits. There is no neck vein distension. Respiratory: Chest is non-tender. Lungs are clear to auscultation and breath sounds are symmetrical and equal. Cardiovascular: Heart is regular rate and rhythm. There is no murmur or rub auscultated. There is no peripheral edema and pulses are symmetrical and equal. Abdomen: The abdomen is soft and non-tender. There are normal bowel sounds heard in all four quadrants and there is no organomegaly palpated. Musculoskeletal: There is no back tenderness noted. Extremities are non-tender with full range of motion. There is good capillary refill. There is no peripheral edema or calf tenderness elicited. Neurological: Patient is alert and oriented to person, place and time. The patient has symmetrical motor strength in all four extremities. Cranial nerves are grossly intact. Deep tendon reflexes are symmetrical and equal in all four extremities. Psychiatric: The patient has an appropriate affect and does not exhibit any anxiety or depression. Triage Information Reviewed: Yes Vital Signs On Initial Exam: Initial Vitals Temp Pulse Resp BP Pulse Ox 96.8 F 59 20 93/61 94 04/30/18 10:09 04/30/18 10:09 04/30/18 10:09 04/30/18 10:09 04/30/18 10:09 Vital Signs Reviewed: Yes Diagnostics - Vital Signs Vital Signs Temp Pulse Resp BP Pulse Ox 04/30/18 10:22 54 17 101/63 96 04/30/18 10:20 17 04/30/18 10:09 96.8 F 59 20 93/61 94 - Laboratory Result Diagrams: 04/30/18 10:57 04/30/18 10:57 Lab Statement: Any lab studies that have been ordered have been reviewed, and results considered in the medical decision making process. - EKG 10:19 Cardiac Rate: Bradycardia - 53 bpm Summary of EKG Findings: Not a STEMI Re-Evaluation - Re-Evaluation First Eval Re-Evaluation Time: 16:10 Change: Improved Course/Dx Course Of Treatment: Mr. 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 He reported not feeling well. He apparently has a history of being a daily pot smoker and stopped 2 weeks ago. Today he ate a pot brownie. By the time he gets here he states that he feels unpleasant and just wants to sleep. He was kept on a monitor while labs and EKG were obtained including a delayed troponin. Everything checked out and after resting he felt and looked much better. His vitals remained stable throughout. - Diagnoses Provider Diagnoses: Syncope Discharge - Sign-Out/Discharge Documenting (check all that apply): Patient Departure - DC - Discharge Plan Condition: Improved Disposition: HOME Patient Education Materials: Syncope (ED) Referrals: Ildefonso Frank MD [Primary Care Provider] - Additional Instructions: Follow up with your PCP in 2-3 days Return to ED for any new or worsening symptoms - Billing Disposition and Condition Condition: IMPROVED Disposition: Home - Attestation Statements Document Initiated by Scribe: Yes Documenting Scribe: Holly Schmitt Provider For Whom Scribe is Documenting (Include Credential): Dr. Jose Garza MD Scribe Attestation: Holly Eldridge , scribed for Dr. Jose Garza MD on 04/30/18 at 2026. Scribe Documentation Reviewed: Yes Provider Attestation: The documentation as recorded by the scribe, Holly Schmitt accurately reflects the service I personally performed and the decisions made by me, Dr. Jose Garza MD
[2018-04-30 11:08] LABS: ABS Basophils 0 10^3/ul (0-0.2); ABS Eosinophils 0.1 10^3/ul (0-0.6); ABS Lymphocytes 0.5 10^3/ul (1.0-4.8); ABS Monocytes 0.3 10^3/ul (0-0.8); ABS Neutrophils 4.5 10^3/ul (1.5-7.7); ABS Nucleated RBC 0 10^3/ul; Eosinophil % 2.4 % (0-6); Hematocrit 36 % (42-52); Hemoglobin 12.2 g/dl (14.0-18.0); Mean Corpuscular HGB Conc 34 g/dl (31-36); Mean Corpuscular Hemoglobin 32 pg (27-31); Mean Corpuscular Volume 94 fL (80-94); Nucleated Red Blood Cells % 0; Platelet Count 188 10^3/ul (150-450); Red Blood Count 3.85 10^6/ul (4.00-5.40); Red Cell Distribution Width 14 % (10.5-15); White Blood Count 5.5 10^3/ul (3.5-10.8)
[2018-04-30 11:14] LABS: INR 1.01 (0.77-1.02)
[2018-04-30 11:25] LABS: EGFR Non-African American 66.2 (>60)
[2018-04-30 16:24] VITALS: BP 100/60
== END 2018-04-30 16:22 | disposition home or self-care (01) ==
LOC: ED 10:07
DX: R55 Syncope and collapse (principal)
CPT/HCPCS: 36415; 80053; 83605; 84484; 85025; 85610; 93005; 99283